=== PATIENT | female | born 1990 | race African-American/Black ===

== ENCOUNTER → 2016-08-10 | Outpatient (CLI) | payer OTHER | END | disposition home or self-care (01) | LOC: LABWHC1 10:42 | PROVIDERS: ATTEND Obstetrics & Gynecology | DX: N91.2 Amenorrhea, unspecified (principal) | CPT/HCPCS: 36415; 84702 ==

== ENCOUNTER 2016-12-22 06:06 | Emergency (ER) | payer OTHER ==
[2016-12-22] MEDS ORDERED: MAG HYDROX/AL HYDROX/SIMETH 30 ML, HYOSCYAMINE ELIXIR 10 ML, CIMETIDINE HCL 300 MG, LID... PO STA ×4 (06:27)
[2016-12-22] MEDS ORDERED: ONDANSETRON 4 MG/2 ML VIAL IVP STA (06:27)
[2016-12-22] MEDS ORDERED: FAMOTIDINE 20 MG/2 ML VIAL IV STA (06:27)
[2016-12-22] MEDS ORDERED: SODIUM CHLORIDE 0.9% 1,000 ML IV ONE (06:27)
[2016-12-22 06:45] LABS: Basophils % (A) 0 %; CH 23.3; Eosinophils # (A) 0.1 k/uL (0-0.7); Eosinophils % (A) 1 %; HDW 2.55; HGB 10.1 gm/dL (11.4-16.0); Hypochromasia Marked; Luc # (Auto) 0.18; Luc % (Auto) 1; Lymphocytes # (A) 3.6 k/uL (1.0-4.8); Lymphocytes % (A) 24 %; MCH 23.2 pg (25.0-35.0); MCHC 29.8 g/dL (31.0-37.0); Mean Platelet Volume 8.1; Monocytes # (A) 0.6 k/uL (0-1.0); Monocytes % (A) 4 %; Neutrophils # (A) 10.3 k/uL (1.3-7.7); Neutrophils % (A) 70 %; RBC 4.36 m/uL (3.80-5.40); RDW 15.2 % (11.5-15.5); WBC 14.8 k/uL (3.8-10.6); WBC (Perox) 14.71
--- NOTE | 2016-12-22 06:52 | ED ---
Abdominal Pain HPI - General Source: patient Mode of arrival: ambulatory Limitations: no limitations <Adrian Kuhn - Last Filed: 12/22/16 07:03> <Roel Chavez - Last Filed: 12/22/16 09:22> - General Chief Complaint: Abdominal Pain Stated Complaint: abd pain Time Seen by Provider: 12/22/16 06:15 - History of Present Illness Initial Comments: This is a 26-year-old female, past medical history presents emergency department for abdominal pain for the last 1-1/2 months. She states that it has been getting gradually worse. She describes it as a gnawing and aching sensation. It is worse with eating. She states she also has nausea and vomiting. She also has associated diarrhea. She states anytime she eats it "goes right through me ". She denies any fevers or chills. She has not seen anybody for this previously because she does not have insurance. No dysuria or hematuria. No vaginal bleeding or discharge. No other complaints. (Adrian Kuhn) - Related Data Previous Rx's Medication Instructions Recorded Famotidine [Pepcid] 20 mg PO BID #30 tablet 12/22/16 Metoclopramide HCl [Reglan] 10 mg PO Q6HR PRN #15 tablet 12/22/16 Allergies Allergy/AdvReac Type Severity Reaction Status Date / Time No Known Allergies Allergy Verified 12/22/16 07:25 Review of Systems ROS Other: All systems not noted in ROS Statement are negative. <Adrian Kuhn - Last Filed: 12/22/16 07:03> ROS Other: All systems not noted in ROS Statement are negative. <Roel Chavez - Last Filed: 12/22/16 09:22> ROS Statement: Those systems with pertinent positive or pertinent negative responses have been documented in the HPI. Past Medical History Additional Past Medical History / Comment(s): anemia History of Any Multi-Drug Resistant Organisms: None Reported Past Surgical History: No Surgical Hx Reported Additional Past Surgical History / Comment(s): colonoscopy Past Psychological History: No Psychological Hx Reported Smoking Status: Never smoker Past Alcohol Use History: Occasional Past Drug Use History: Marijuana <Adrian Kuhn - Last Filed: 12/22/16 07:03> General Exam Limitations: no limitations <Adrian Kuhn - Last Filed: 12/22/16 07:03> <Roel Chavez - Last Filed: 12/22/16 09:22> - General Exam Comments Initial Comments: Constitutional: Awake alert Appears comfortable Head: Normocephalic atraumatic Eyes: no conjunctival injection No scleral icterus EOMI Neck: No JVD Supple Heart: Regular rate rhythm normal S1-S2 no murmurs Lungs: Clear to auscultation bilaterally No wheezing No rales Abdomen: Soft nondistended mild epigastric tenderness to palpation Extremities: Non edematous DP pulses intact Radial pulses intact Neuro: A&Ox3 No focal neurologic deficits Psych: Appropriate mood and affect (Adrian Kuhn) Medical Decision Making - Lab Data Result diagrams: 12/22/16 06:35 12/22/16 06:35 <Adrian Kuhn - Last Filed: 12/22/16 07:03> - Lab Data Result diagrams: 12/22/16 06:35 12/22/16 06:35 - Radiology Data Radiology results: report reviewed (Ultrasound right upper quadrant shows normal exam.) <Roel Chavez - Last Filed: 12/22/16 09:22> - Medical Decision Making Pt's care transitioned to Dr. Chavez (Adrian Kuhn) Patient reevaluated by myself, Dr. Chavez. Patient resting comfortably in bed. Abdomen is soft and nontender. Pedal pulses intact. Patient states she feels better and does appear comfortable. Patient is updated on results and need for follow-up. (Roel Chavez) - Lab Data Lab Results 12/22/16 12/22/16 12/22/16 Range/Units 06:34 06:34 06:35 WBC 14.8 H (3.8-10.6) k/uL RBC 4.36 (3.80-5.40) m/uL Hgb 10.1 L (11.4-16.0) gm/dL Hct 34.0 (34.0-46.0) % MCV 78.0 L (80.0-100.0) fL MCH 23.2 L (25.0-35.0) pg MCHC 29.8 L (31.0-37.0) g/dL RDW 15.2 (11.5-15.5) % Plt Count 224 (150-450) k/uL Neutrophils % 70 % Lymphocytes % 24 % Monocytes % 4 % Eosinophils % 1 % Basophils % 0 % Neutrophils # 10.3 H (1.3-7.7) k/uL Lymphocytes # 3.6 (1.0-4.8) k/uL Monocytes # 0.6 (0-1.0) k/uL Eosinophils # 0.1 (0-0.7) k/uL Basophils # 0.0 (0-0.2) k/uL Hypochromasia Marked Sodium (137-145) mmol/L Potassium (3.5-5.1) mmol/L Chloride (98-107) mmol/L Carbon Dioxide (22-30) mmol/L Anion Gap mmol/L BUN (7-17) mg/dL Creatinine (0.52-1.04) mg/dL Est GFR (MDRD) Af Amer (>60 ml/min/1.73 sqM) Est GFR (MDRD) Non-Af (>60 ml/min/1.73 sqM) Glucose (74-99) mg/dL Calcium (8.4-10.2) mg/dL Total Bilirubin (0.2-1.3) mg/dL AST (14-36) U/L ALT (9-52) U/L Alkaline Phosphatase (38-126) U/L Total Protein (6.3-8.2) g/dL Albumin (3.5-5.0) g/dL Amylase (30-110) U/L Lipase (23-300) U/L Urine Color Yellow Urine Appearance Cloudy H (Clear) Urine pH 6.0 (5.0-8.0) Ur Specific [place] 1.021 (1.001-1.035) Urine Protein 1+ H (Negative) Urine Glucose (UA) Negative (Negative) Urine Ketones Negative (Negative) Urine Blood Negative (Negative) Urine Nitrite Negative (Negative) Urine Bilirubin Negative (Negative) Urine Urobilinogen <2.0 (<2.0) mg/dL Ur Leukocyte Esterase Negative (Negative) Urine RBC 2 (0-5) /hpf Urine WBC 1 (0-5) /hpf Ur Squamous Epith Cells 24 H (0-4) /hpf Urine Bacteria Rare H (None) /hpf Urine Mucus Many H (None) /hpf Urine HCG, Qual Not Detected (Not Detectd) 12/22/16 Range/Units 06:35 WBC (3.8-10.6) k/uL RBC (3.80-5.40) m/uL Hgb (11.4-16.0) gm/dL Hct (34.0-46.0) % MCV (80.0-100.0) fL MCH (25.0-35.0) pg MCHC (31.0-37.0) g/dL RDW (11.5-15.5) % Plt Count (150-450) k/uL Neutrophils % % Lymphocytes % % Monocytes % % Eosinophils % % Basophils % % Neutrophils # (1.3-7.7) k/uL Lymphocytes # (1.0-4.8) k/uL Monocytes # (0-1.0) k/uL Eosinophils # (0-0.7) k/uL Basophils # (0-0.2) k/uL Hypochromasia Sodium 142 (137-145) mmol/L Potassium 3.5 (3.5-5.1) mmol/L Chloride 105 (98-107) mmol/L Carbon Dioxide 24 (22-30) mmol/L Anion Gap 13 mmol/L BUN 8 (7-17) mg/dL Creatinine 0.63 (0.52-1.04) mg/dL Est GFR (MDRD) Af Amer >60 (>60 ml/min/1.73 sqM) Est GFR (MDRD) Non-Af >60 (>60 ml/min/1.73 sqM) Glucose 93 (74-99) mg/dL Calcium 9.1 (8.4-10.2) mg/dL Total Bilirubin 1.3 (0.2-1.3) mg/dL AST 20 (14-36) U/L ALT 21 (9-52) U/L Alkaline Phosphatase 74 (38-126) U/L Total Protein 7.5 (6.3-8.2) g/dL Albumin 4.3 (3.5-5.0) g/dL Amylase <30 L (30-110) U/L Lipase 35 (23-300) U/L Urine Color Urine Appearance (Clear) Urine pH (5.0-8.0) Ur Specific [place] (1.001-1.035) Urine Protein (Negative) Urine Glucose (UA) (Negative) Urine Ketones (Negative) Urine Blood (Negative) Urine Nitrite (Negative) Urine Bilirubin (Negative) Urine Urobilinogen (<2.0) mg/dL Ur Leukocyte Esterase (Negative) Urine RBC (0-5) /hpf Urine WBC (0-5) /hpf Ur Squamous Epith Cells (0-4) /hpf Urine Bacteria (None) /hpf Urine Mucus (None) /hpf Urine HCG, Qual (Not Detectd) Disposition <Adrian Kuhn - Last Filed: 12/22/16 07:03> Time of Disposition: 09:22 <Roel Chavez - Last Filed: 12/22/16 09:22> Clinical Impression: Epigastric pain, Vomiting Disposition: HOME SELF-CARE Condition: Stable Instructions: Abdominal Pain (ED), Acute Nausea and Vomiting (ED) Additional Instructions: Please follow-up with your doctor in the beginning of the week. Return for not tolerating fluids, increased pain, fevers, worsening symptoms or other concerns. Have your primary care physician consider EGD. Pepcid daily. Prescriptions: Famotidine [Pepcid] 20 mg PO BID #30 tablet Metoclopramide HCl [Reglan] 10 mg PO Q6HR PRN #15 tablet PRN Reason: Nausea Referrals: Vale Lawson MD [Primary Care Provider] - 1-2 days
[2016-12-22 06:54] LABS: Appearance,Urine Cloudy (Clear); Bacteria,Urine Rare /hpf; Bilirubin,Urine Negative (Negative); Glucose,Urine (UA) Negative (Negative); Ketones,Urine Negative (Negative); Leukocyte Esterase,Urine Negative (Negative); Mucus,Urine Many /hpf; Nitrite,Urine Negative (Negative); Particle Count 12275; Protein,Urine 1+ (Negative); RBC,Urine 2 /hpf (0-5); Specific Gravity,Urine 1.021 (1.001-1.035); Squamous Epithelial Cell,Urine 24 /hpf (0-4); UA Billing (MACRO vs. MICRO) MICRO; Urobilinogen,Urine <2.0 mg/dL (<2.0); WBC,Urine 1 /hpf (0-5)
[2016-12-22 06:57] LABS: ALT 21 U/L (9-52); AST 20 U/L (14-36); Alkaline Phosphatase 74 U/L (38-126); Amylase <30 U/L (30-110); Anion Gap 13 mmol/L; Blood Urea Nitrogen 8 mg/dL (7-17); Calcium 9.1 mg/dL (8.4-10.2); Carbon Dioxide 24 mmol/L (22-30); Chloride 105 mmol/L (98-107); Glucose 93 mg/dL (74-99); Non-African American GFR(MDRD) >60 (>60 ml/min/1.73 sqM); Potassium 3.5 mmol/L (3.5-5.1); Sodium 142 mmol/L (137-145); Total Bilirubin 1.3 mg/dL (0.2-1.3); Total Protein 7.5 g/dL (6.3-8.2)
[2016-12-22 07:49] VITALS: RESP 16
--- NOTE | 2016-12-22 09:12 | US ---
EXAMINATION TYPE: US abdomen limited DATE OF EXAM: 12/22/2016 COMPARISON: NONE CLINICAL HISTORY: RUQ pain. EC patient with intermittent RUQ pain, RLQ pain, nausea and vomiting EXAM MEASUREMENTS: Liver Length: 15.5 cm Gallbladder Wall: 0.1 cm CBD: 0.2 cm Right Kidney: 11.8 x 5.8 x 4.1 cm Pancreas: Head and body the pancreas are normal. Tail of pancreas is obscured by bowel gas. Liver: wnl Gallbladder: wnl Evidence for sonographic Flores's sign: No CBD: wnl Right Kidney: wnl IMPRESSION: 1. Normal right upper quadrant ultrasound.
[2016-12-22 09:33] VITALS: BP 149/86; PULSE 82; TEMP 99.4
== END 2016-12-22 09:33 | disposition home or self-care (01) ==
LOC: EC 06:06
DX: R10.13 Epigastric pain (principal); R11.2 Nausea with vomiting, unspecified; R19.7 Diarrhea, unspecified
CPT/HCPCS: 36415; 80053; 82150; 83690; 85025; 81001; 81025; 76705; 99284; 96374; 96375; 96361; J2405

== ENCOUNTER 2017-01-05 07:01 | Emergency (ER) | payer OTHER ==
[2017-01-05] MEDS ORDERED: SODIUM CHLORIDE 0.9% 500 ML IV STA (08:07)
[2017-01-05 08:18] LABS: Basophils % (A) 0 %; CH 22.8; CHCM 29.5; Eosinophils # (A) 0.1 k/uL (0-0.7); Eosinophils % (A) 1 %; HCT 32.4 % (34.0-46.0); HDW 2.52; HGB 10.3 gm/dL (11.4-16.0); Hypochromasia Marked; Luc # (Auto) 0.26; Luc % (Auto) 2; Lymphocytes # (A) 3.2 k/uL (1.0-4.8); Lymphocytes % (A) 26 %; MCH 24.6 pg (25.0-35.0); MCHC 31.8 g/dL (31.0-37.0); MCV 77.4 fL (80.0-100.0); Mean Platelet Volume 7.2; Monocytes # (A) 0.5 k/uL (0-1.0); Monocytes % (A) 4 %; Neutrophils % (A) 66 %; RBC 4.19 m/uL (3.80-5.40); RDW 14.8 % (11.5-15.5); WBC 12.1 k/uL (3.8-10.6); WBC (Perox) 12.32
[2017-01-05 08:26] LABS: Appearance,Urine Cloudy (Clear); Bilirubin,Urine Negative (Negative); Glucose,Urine (UA) Negative (Negative); Ketones,Urine Negative (Negative); Leukocyte Esterase,Urine Negative (Negative); Mucus,Urine Rare /hpf; Nitrite,Urine Negative (Negative); PH, Urine 6.5 (5.0-8.0); Particle Count 3266; Protein,Urine Negative (Negative); Specific Gravity,Urine 1.019 (1.001-1.035); Squamous Epithelial Cell,Urine 11 /hpf (0-4); UA Billing (MACRO vs. MICRO) MICRO; Urobilinogen,Urine <2.0 mg/dL (<2.0); WBC,Urine 1 /hpf (0-5)
[2017-01-05 08:29] LABS: ALT 26 U/L (9-52); AST 22 U/L (14-36); Alkaline Phosphatase 80 U/L (38-126); Amylase <30 U/L (30-110); Anion Gap 12 mmol/L; Blood Urea Nitrogen 10 mg/dL (7-17); Calcium 9.3 mg/dL (8.4-10.2); Carbon Dioxide 24 mmol/L (22-30); Chloride 107 mmol/L (98-107); Glucose 96 mg/dL (74-99); Non-African American GFR(MDRD) >60 (>60 ml/min/1.73 sqM); Potassium 3.9 mmol/L (3.5-5.1); Sodium 143 mmol/L (137-145); Total Bilirubin 0.5 mg/dL (0.2-1.3); Total Protein 7.3 g/dL (6.3-8.2)
--- NOTE | 2017-01-05 08:33 | ED ---
General Adult HPI - General Chief complaint: Abdominal Pain Stated complaint: abd pain Time Seen by Provider: 01/05/17 07:10 Source: patient, RN notes reviewed Mode of arrival: ambulatory Limitations: no limitations - History of Present Illness Initial comments: This is a 26-year-old female who presents emergency department stating that she has had abdominal pain for 2-3 months. Patient states that she has episodes of vomiting and episodes of diarrhea as well. Patient states she did vomit this morning and she had not eaten yet today. Patient denies any fever chills. Patient denies any previous abdominal surgeries. Patient denies any dysuria hematuria urinary frequency. Patient states she could be . Patient denies any chest pain difficult breathing or shortness of breath. Patient denies any back pain. Patient's states she's been to her primary medical care doctor but has not followed up as he has directed. - Related Data Home Medications Medication Instructions Recorded Confirmed No Known Home Medications [No 01/05/17 01/05/17 Known Home Medications] Allergies Allergy/AdvReac Type Severity Reaction Status Date / Time No Known Allergies Allergy Verified 01/05/17 07:44 Review of Systems ROS Statement: Those systems with pertinent positive or pertinent negative responses have been documented in the HPI. ROS Other: All systems not noted in ROS Statement are negative. Past Medical History Past Medical History: Hypertension Additional Past Medical History / Comment(s): anemia History of Any Multi-Drug Resistant Organisms: None Reported Past Surgical History: No Surgical Hx Reported Additional Past Surgical History / Comment(s): colonoscopy Past Psychological History: No Psychological Hx Reported Smoking Status: Never smoker Past Alcohol Use History: Occasional Past Drug Use History: Marijuana General Exam - General Exam Comments Initial Comments: GENERAL: Patient is well-developed and well-nourished. Patient is nontoxic and well- hydrated and is in no acute distress. ENT: Neck is soft and supple. No significant lymphadenopathy is noted. Oropharynx is clear. Moist mucous membranes. Neck has full range of motion without eliciting any pain. EYES: The sclera were anicteric and conjunctiva were pink and moist. Extraocular movements were intact and pupils were equal round and reactive to light. Eyelids were unremarkable. PULMONARY: Unlabored respirations. Good breath sounds bilaterally. No audible rales rhonchi or wheezing was noted. CARDIOVASCULAR: There is a regular rate and rhythm without any murmurs gallops or rubs. ABDOMEN: Soft and nontender with normal bowel sounds. No palpable organomegaly was noted. There is no palpable pulsatile mass. SKIN: Skin is clear with no lesions or rashes and otherwise unremarkable. NEUROLOGIC: Patient is alert and oriented x3. Cranial nerves II through XII are grossly intact. Motor and sensory are also intact. Normal speech, volume and content. Symmetrical smile. MUSCULOSKELETAL: Normal extremities with adequate strength and full range of motion. No lower extremity swelling or edema. No calf tenderness. LYMPHATICS: No significant lymphadenopathy is noted PSYCHIATRIC: Normal psychiatric evaluation. Limitations: no limitations Course Vital Signs 01/05/17 07:10 Temperature 99.0 F Pulse Rate 70 Respiratory 20 Rate Blood Pressure 157/89 O2 Sat by Pulse 100 Oximetry Medical Decision Making - Medical Decision Making I went into the room to reevaluate the patient she was sleeping. I woke her up and examined her abdomen was nontender. Patient has slightly elevated white cell count and an slightly anemic. Patient states she supposed be following up with hematology already. - Lab Data Result diagrams: 01/05/17 07:25 01/05/17 07:25 Lab Results 01/05/17 01/05/17 01/05/17 Range/Units 07:20 07:20 07:25 WBC (3.8-10.6) k/uL RBC (3.80-5.40) m/uL Hgb (11.4-16.0) gm/dL Hct (34.0-46.0) % MCV (80.0-100.0) fL MCH (25.0-35.0) pg MCHC (31.0-37.0) g/dL RDW (11.5-15.5) % Plt Count (150-450) k/uL Neutrophils % % Lymphocytes % % Monocytes % % Eosinophils % % Basophils % % Neutrophils # (1.3-7.7) k/uL Lymphocytes # (1.0-4.8) k/uL Monocytes # (0-1.0) k/uL Eosinophils # (0-0.7) k/uL Basophils # (0-0.2) k/uL Hypochromasia Sodium 143 (137-145) mmol/L Potassium 3.9 (3.5-5.1) mmol/L Chloride 107 (98-107) mmol/L Carbon Dioxide 24 (22-30) mmol/L Anion Gap 12 mmol/L BUN 10 (7-17) mg/dL Creatinine 0.62 (0.52-1.04) mg/dL Est GFR (MDRD) Af Amer >60 (>60 ml/min/1.73 sqM) Est GFR (MDRD) Non-Af >60 (>60 ml/min/1.73 sqM) Glucose 96 (74-99) mg/dL Calcium 9.3 (8.4-10.2) mg/dL Total Bilirubin 0.5 (0.2-1.3) mg/dL AST 22 (14-36) U/L ALT 26 (9-52) U/L Alkaline Phosphatase 80 (38-126) U/L Total Protein 7.3 (6.3-8.2) g/dL Albumin 4.2 (3.5-5.0) g/dL Amylase <30 L (30-110) U/L Lipase 59 (23-300) U/L Urine Color Yellow Urine Appearance Cloudy H (Clear) Urine pH 6.5 (5.0-8.0) Ur Specific [place] 1.019 (1.001-1.035) Urine Protein Negative (Negative) Urine Glucose (UA) Negative (Negative) Urine Ketones Negative (Negative) Urine Blood Negative (Negative) Urine Nitrite Negative (Negative) Urine Bilirubin Negative (Negative) Urine Urobilinogen <2.0 (<2.0) mg/dL Ur Leukocyte Esterase Negative (Negative) Urine WBC 1 (0-5) /hpf Ur Squamous Epith Cells 11 H (0-4) /hpf Urine Mucus Rare H (None) /hpf Urine HCG, Qual Not Detected (Not Detectd) 01/05/17 Range/Units 07:25 WBC 12.1 H (3.8-10.6) k/uL RBC 4.19 (3.80-5.40) m/uL Hgb 10.3 L (11.4-16.0) gm/dL Hct 32.4 L (34.0-46.0) % MCV 77.4 L (80.0-100.0) fL MCH 24.6 L (25.0-35.0) pg MCHC 31.8 (31.0-37.0) g/dL RDW 14.8 (11.5-15.5) % Plt Count 276 (150-450) k/uL Neutrophils % 66 % Lymphocytes % 26 % Monocytes % 4 % Eosinophils % 1 % Basophils % 0 % Neutrophils # 8.0 H (1.3-7.7) k/uL Lymphocytes # 3.2 (1.0-4.8) k/uL Monocytes # 0.5 (0-1.0) k/uL Eosinophils # 0.1 (0-0.7) k/uL Basophils # 0.0 (0-0.2) k/uL Hypochromasia Marked Sodium (137-145) mmol/L Potassium (3.5-5.1) mmol/L Chloride (98-107) mmol/L Carbon Dioxide (22-30) mmol/L Anion Gap mmol/L BUN (7-17) mg/dL Creatinine (0.52-1.04) mg/dL Est GFR (MDRD) Af Amer (>60 ml/min/1.73 sqM) Est GFR (MDRD) Non-Af (>60 ml/min/1.73 sqM) Glucose (74-99) mg/dL Calcium (8.4-10.2) mg/dL Total Bilirubin (0.2-1.3) mg/dL AST (14-36) U/L ALT (9-52) U/L Alkaline Phosphatase (38-126) U/L Total Protein (6.3-8.2) g/dL Albumin (3.5-5.0) g/dL Amylase (30-110) U/L Lipase (23-300) U/L Urine Color Urine Appearance (Clear) Urine pH (5.0-8.0) Ur Specific [place] (1.001-1.035) Urine Protein (Negative) Urine Glucose (UA) (Negative) Urine Ketones (Negative) Urine Blood (Negative) Urine Nitrite (Negative) Urine Bilirubin (Negative) Urine Urobilinogen (<2.0) mg/dL Ur Leukocyte Esterase (Negative) Urine WBC (0-5) /hpf Ur Squamous Epith Cells (0-4) /hpf Urine Mucus (None) /hpf Urine HCG, Qual (Not Detectd) Disposition Clinical Impression: Abdominal pain Disposition: HOME SELF-CARE Instructions: Abdominal Pain (ED) Referrals: Vale Lawson MD [Primary Care Provider] - 1-2 days Time of Disposition: 09:28
--- NOTE | 2017-01-05 08:46 | XR ---
EXAMINATION TYPE: XR KUB DATE OF EXAM: 01/05/2017 COMPARISON: NONE HISTORY: Pain TECHNIQUE: Single supine KUB image of the abdomen is obtained FINDINGS: Small bowel demonstrates no evidence for dilatation or air fluid levels. Gas and fecal material is seen in non-distended colon. No convincing evidence for pneumoperitoneum. No unusual calcifications. The lung bases are clear. The osseous structures are intact. IMPRESSION: 1. Overall nonobstructive bowel gas pattern.
[2017-01-05 10:03] VITALS: BP 125/83; PULSE 91; RESP 18; TEMP 97.9
== END 2017-01-05 10:03 | disposition home or self-care (01) ==
LOC: EC 07:01
DX: R10.9 Unspecified abdominal pain (principal); R11.10 Vomiting, unspecified; R19.7 Diarrhea, unspecified
CPT/HCPCS: 36415; 74000; 80053; 81001; 81025; 82150; 83690; 85025; 96360; 99284

== ENCOUNTER 2017-02-21 12:44 | Emergency (ER) | payer OTHER ==
[2017-02-21 12:49] VITALS: RESP 18
[2017-02-21] MEDS ORDERED: AMOXICILLIN 500 MG CAP PO STA (13:36)
[2017-02-21] MEDS ORDERED: DEXAMETHASONE SOD PHOSPHATE 10 MG/ML 1 ML VIAL IM STA (13:36)
[2017-02-21] MEDS ORDERED: Acetaminophen-Codeine 300-30mg TAB PO STA (13:36)
[2017-02-21] MEDS ORDERED: ACETAMINOPHEN TAB 325 MG TAB PO STA (13:36)
[2017-02-21] MEDS ORDERED: IBUPROFEN 800 MG TAB PO STA (13:36)
--- NOTE | 2017-02-21 13:38 | ED ---
General Adult HPI - General Chief complaint: Abdominal Pain Stated complaint: strep throat/body pains Time Seen by Provider: 02/21/17 13:23 Source: patient, RN notes reviewed, old records reviewed Mode of arrival: ambulatory Limitations: no limitations - History of Present Illness Initial comments: This is a 26-year-old female the ER for evaluation of sore throat. Patient is very for sore throat. Fevers. Generalized aches and pains. Patient has no medical history. Denies . Patient states she has some difficulty swallowing. No cough. - Related Data Previous Rx's Medication Instructions Recorded Diphenox-Atrop 2.5-0.025 mg 1 tab PO QID PRN #20 tablet 03/05/17 [Lomotil] Ondansetron [Zofran] 4 mg PO Q8HR PRN #30 tab 03/05/17 Allergies Allergy/AdvReac Type Severity Reaction Status Date / Time No Known Allergies Allergy Verified 03/05/17 07:35 Review of Systems ROS Statement: Those systems with pertinent positive or pertinent negative responses have been documented in the HPI. ROS Other: All systems not noted in ROS Statement are negative. Past Medical History Past Medical History: Hypertension Additional Past Medical History / Comment(s): anemia History of Any Multi-Drug Resistant Organisms: None Reported Past Surgical History: No Surgical Hx Reported Additional Past Surgical History / Comment(s): colonoscopy Past Psychological History: No Psychological Hx Reported Smoking Status: Never smoker Past Alcohol Use History: Occasional Past Drug Use History: Marijuana General Exam Limitations: no limitations General appearance: alert, in no apparent distress Head exam: Present: atraumatic, normocephalic, normal inspection Eye exam: Present: normal appearance, PERRL, EOMI. Absent: scleral icterus, conjunctival injection, periorbital swelling ENT exam: Present: normal exam, mucous membranes moist Neck exam: Present: normal inspection. Absent: tenderness, meningismus, lymphadenopathy Respiratory exam: Present: normal lung sounds bilaterally. Absent: respiratory distress, wheezes, rales, rhonchi, stridor Cardiovascular Exam: Present: regular rate, normal rhythm, normal heart sounds. Absent: systolic murmur, diastolic murmur, rubs, gallop, clicks GI/Abdominal exam: Present: soft, normal bowel sounds. Absent: distended, tenderness, guarding, rebound, rigid Extremities exam: Present: normal inspection, full ROM, normal capillary refill. Absent: tenderness, pedal edema, joint swelling, calf tenderness Back exam: Present: normal inspection Neurological exam: Present: alert, oriented X3, CN II-XII intact Psychiatric exam: Present: normal affect, normal mood Skin exam: Present: warm, dry, intact, normal color. Absent: rash Course Vital Signs 02/21/17 02/21/17 12:46 14:17 Temperature 100.3 F H 99.6 F Pulse Rate 105 H 70 Respiratory 18 18 Rate Blood Pressure 167/95 130/85 O2 Sat by Pulse 100 100 Oximetry Medical Decision Making - Medical Decision Making 26 female to ER with exam positive for strep throat, will treat with antibiotics and discharged home Disposition Clinical Impression: Strep pharyngitis Disposition: HOME SELF-CARE Condition: Good Instructions: Strep Throat (ED) Referrals: Vale Lawson MD [Primary Care Provider] - 1-2 days
[2017-02-21 14:18] VITALS: BP 130/85; PULSE 70; TEMP 99.6
--- NOTE | 2017-02-23 07:44 | CDI ---
Documentation Clarification OP Dear Eh EVANS, DO: Please do addendum to ED report for HPI and physical exam. Thank you, Lauryn Andersen Hand Driller If you have any question, Please contact coding compliance auditor at [phone] [facility]
== END 2017-02-21 14:18 | disposition home or self-care (01) ==
LOC: EC 12:44
DX: J02.0 Streptococcal pharyngitis (principal); M79.1 Myalgia; R50.9 Fever, unspecified
CPT/HCPCS: 99284; 96372; J1100

== ENCOUNTER 2017-03-05 06:51 | Emergency (ER) | payer OTHER ==
[2017-03-05] MEDS ORDERED: SODIUM CHLORIDE 0.9% 1,000 ML IV ONE (08:07)
[2017-03-05] MEDS ORDERED: ONDANSETRON 4 MG/2 ML VIAL IVP STA (08:08)
[2017-03-05] MEDS ORDERED: ACETAMINOPHEN IV (For NPO) 1,000 MG in EMPTY BAG 1 BAG IVPB STA (08:08)
[2017-03-05] MEDS ORDERED: diphenhydrAMINE 50 MG/ML 1 ML VIAL IVP STA (08:08)
--- NOTE | 2017-03-05 08:32 | ED ---
General Adult HPI - General Chief complaint: Nausea/Vomiting/Diarrhea Stated complaint: back pain/diarrhea/abdominal pain Time Seen by Provider: 03/05/17 07:31 Source: patient, RN notes reviewed, old records reviewed Mode of arrival: ambulatory Limitations: no limitations - History of Present Illness Initial comments: This is a 26-year-old female the ER for evaluation of multiple complaints. Patient states she recent diagnosis of strep throat which seems resolved, Samreen final she is . Patient states she is having diarrhea with abdominal cramping and not feeling well for about 2-3 days. Patient has a decreased appetite no fevers. No other complaints no dysuria. This is patient' s first - Related Data Home Medications Medication Instructions Recorded Confirmed No Known Home Medications [No 03/05/17 03/05/17 Known Home Medications] Allergies Allergy/AdvReac Type Severity Reaction Status Date / Time No Known Allergies Allergy Verified 03/05/17 07:35 Review of Systems ROS Statement: Those systems with pertinent positive or pertinent negative responses have been documented in the HPI. ROS Other: All systems not noted in ROS Statement are negative. Past Medical History Past Medical History: Hypertension Additional Past Medical History / Comment(s): anemia History of Any Multi-Drug Resistant Organisms: None Reported Past Surgical History: No Surgical Hx Reported Additional Past Surgical History / Comment(s): colonoscopy Past Psychological History: No Psychological Hx Reported Smoking Status: Never smoker Past Alcohol Use History: None Reported Past Drug Use History: None Reported General Exam Limitations: no limitations General appearance: alert, in no apparent distress Head exam: Present: atraumatic, normocephalic, normal inspection Eye exam: Present: normal appearance, PERRL, EOMI. Absent: scleral icterus, conjunctival injection, periorbital swelling ENT exam: Present: normal exam, mucous membranes moist Neck exam: Present: normal inspection. Absent: tenderness, meningismus, lymphadenopathy Respiratory exam: Present: normal lung sounds bilaterally. Absent: respiratory distress, wheezes, rales, rhonchi, stridor Cardiovascular Exam: Present: regular rate, normal rhythm, normal heart sounds. Absent: systolic murmur, diastolic murmur, rubs, gallop, clicks GI/Abdominal exam: Present: soft, normal bowel sounds. Absent: distended, tenderness, guarding, rebound, rigid Extremities exam: Present: normal inspection, full ROM, normal capillary refill. Absent: tenderness, pedal edema, joint swelling, calf tenderness Back exam: Present: normal inspection Neurological exam: Present: alert, oriented X3, CN II-XII intact Psychiatric exam: Present: normal affect, normal mood Skin exam: Present: warm, dry, intact, normal color. Absent: rash Course Vital Signs 03/05/17 07:03 Temperature 98.1 F Pulse Rate 74 Respiratory 18 Rate Blood Pressure 141/96 O2 Sat by Pulse 100 Oximetry - Reevaluation(s) Reevaluation #1: 03/05/17 08:31 Patient's symptoms are much improved at this time Medical Decision Making - Medical Decision Making 26 female ER for evaluation of multiple complaints, test is negative. Patient will be discharged home - Lab Data Result diagrams: 03/05/17 08:45 Lab Results 03/05/17 03/05/17 03/05/17 Range/Units 08:15 08:15 08:45 WBC 12.4 H (3.8-10.6) k/uL RBC 4.42 (3.80-5.40) m/uL Hgb 10.2 L (11.4-16.0) gm/dL Hct 34.5 (34.0-46.0) % MCV 78.2 L (80.0-100.0) fL MCH 23.1 L (25.0-35.0) pg MCHC 29.5 L (31.0-37.0) g/dL RDW 15.6 H (11.5-15.5) % Plt Count 215 (150-450) k/uL Neutrophils % 78 % Lymphocytes % 17 % Monocytes % 3 % Eosinophils % 1 % Basophils % 0 % Neutrophils # 9.7 H (1.3-7.7) k/uL Lymphocytes # 2.1 (1.0-4.8) k/uL Monocytes # 0.4 (0-1.0) k/uL Eosinophils # 0.1 (0-0.7) k/uL Basophils # 0.0 (0-0.2) k/uL Hypochromasia Moderate Urine Color Yellow Urine Appearance Clear (Clear) Urine pH 6.0 (5.0-8.0) Ur Specific [place] 1.015 (1.001-1.035) Urine Protein Negative (Negative) Urine Glucose (UA) Negative (Negative) Urine Ketones Negative (Negative) Urine Blood Negative (Negative) Urine Nitrite Negative (Negative) Urine Bilirubin Negative (Negative) Urine Urobilinogen <2.0 (<2.0) mg/dL Ur Leukocyte Esterase Negative (Negative) Urine HCG, Qual Not Detected (Not Detectd) - Radiology Data Radiology results: report reviewed (Ultrasound OB shows positive IUP), image reviewed Disposition Clinical Impression: Gastroenteritis Disposition: HOME SELF-CARE Instructions: Acute Diarrhea (ED) Referrals: Vale Lawson MD [Primary Care Provider] - 1-2 days
[2017-03-05 08:45] LABS: Appearance,Urine Clear (Clear); Bilirubin,Urine Negative (Negative); Glucose,Urine (UA) Negative (Negative); Ketones,Urine Negative (Negative); Leukocyte Esterase,Urine Negative (Negative); Nitrite,Urine Negative (Negative); Protein,Urine Negative (Negative); Specific Gravity,Urine 1.015 (1.001-1.035); UA Billing (MACRO vs. MICRO) CHEM; Urobilinogen,Urine <2.0 mg/dL (<2.0)
[2017-03-05 08:57] LABS: Basophils % (A) 0 %; CH 23.7; CHCM 30.5; Eosinophils # (A) 0.1 k/uL (0-0.7); Eosinophils % (A) 1 %; HCT 34.5 % (34.0-46.0); HDW 2.62; HGB 10.2 gm/dL (11.4-16.0); Hypochromasia Moderate; Luc # (Auto) 0.16; Luc % (Auto) 1; Lymphocytes # (A) 2.1 k/uL (1.0-4.8); Lymphocytes % (A) 17 %; MCH 23.1 pg (25.0-35.0); MCHC 29.5 g/dL (31.0-37.0); MCV 78.2 fL (80.0-100.0); Mean Platelet Volume 7.2; Monocytes # (A) 0.4 k/uL (0-1.0); Monocytes % (A) 3 %; Neutrophils # (A) 9.7 k/uL (1.3-7.7); Neutrophils % (A) 78 %; RBC 4.42 m/uL (3.80-5.40); RDW 15.6 % (11.5-15.5); WBC 12.4 k/uL (3.8-10.6); WBC (Perox) 12.53
[2017-03-05 09:14] LABS: ALT 33 U/L (9-52); AST 22 U/L (14-36); Alkaline Phosphatase 72 U/L (38-126); Anion Gap 10 mmol/L; Blood Urea Nitrogen 6 mg/dL (7-17); Calcium 8.9 mg/dL (8.4-10.2); Carbon Dioxide 20 mmol/L (22-30); Chloride 108 mmol/L (98-107); Glucose 99 mg/dL (74-99); Non-African American GFR(MDRD) >60 (>60 ml/min/1.73 sqM); Potassium 4.1 mmol/L (3.5-5.1); Sodium 138 mmol/L (137-145); Total Bilirubin 0.3 mg/dL (0.2-1.3); Total Protein 6.8 g/dL (6.3-8.2)
--- NOTE | 2017-03-05 11:35 | US ---
EXAMINATION TYPE: US OB <= 14 wk fetus DATE OF EXAM: 03/05/2017 COMPARISON: NONE CLINICAL HISTORY: Pain. EXAM PERFORMED: Transabdominal (TA) EXAM MEASUREMENTS: GESTATIONAL AGE / DATING Physician Established: not yet established Dates by LMP: (6 weeks/0 days) EDC: 10/29/17 Dates by First Scan: 1st scan today (Dates by Current Scan for: 6 weeks/0 days) EDC: 10/29/17 MATERNAL ANATOMY Uterus: 9.9 x 3.7 x 5.2cm Right Ovary: 2.4 x 1.9 x 2.0cm Left Ovary: 3.0 x 2.2 x 2.3 Post CDS / Adnexa: wnl GESTATION / SURVEY CRL: 0.4 ( 6 weeks/0 days) Yolk Sac (normal less than 6mm): 2mm Heart Rate: 168 bpm Rhythm: Arrhythmia IUP: Viable IUP Date of LMP: 01/22/17 Beta HcG (if available): not available Estimated date of delivery of 10/29/2017. IMPRESSION: Single live intrauterine with a sonographic age of 6 weeks and 0 days, heart rate of 168, a nd estimated date of delivery of 10/29/2017. Dates are concordant with the menstrual age.
--- NOTE | 2017-03-05 12:11 | ED ---
Medical Decision Making - Medical Decision Making 26 female in the ER for evaluation, patient coming in for evaluation of diarrhea , continue with gastritis, colitis, patient also has positive , no intervention or medication at this time, left foot are normal patient feels better - Lab Data Result diagrams: 03/05/17 08:45 03/05/17 08:45 Lab Results 03/05/17 03/05/17 03/05/17 Range/Units 08:15 08:15 08:45 WBC (3.8-10.6) k/uL RBC (3.80-5.40) m/uL Hgb (11.4-16.0) gm/dL Hct (34.0-46.0) % MCV (80.0-100.0) fL MCH (25.0-35.0) pg MCHC (31.0-37.0) g/dL RDW (11.5-15.5) % Plt Count (150-450) k/uL Neutrophils % % Lymphocytes % % Monocytes % % Eosinophils % % Basophils % % Neutrophils # (1.3-7.7) k/uL Lymphocytes # (1.0-4.8) k/uL Monocytes # (0-1.0) k/uL Eosinophils # (0-0.7) k/uL Basophils # (0-0.2) k/uL Hypochromasia Sodium (137-145) mmol/L Potassium (3.5-5.1) mmol/L Chloride (98-107) mmol/L Carbon Dioxide (22-30) mmol/L Anion Gap mmol/L BUN (7-17) mg/dL Creatinine (0.52-1.04) mg/dL Est GFR (MDRD) Af Amer (>60 ml/min/1.73 sqM) Est GFR (MDRD) Non-Af (>60 ml/min/1.73 sqM) Glucose (74-99) mg/dL Calcium (8.4-10.2) mg/dL Total Bilirubin (0.2-1.3) mg/dL AST (14-36) U/L ALT (9-52) U/L Alkaline Phosphatase (38-126) U/L Total Protein (6.3-8.2) g/dL Albumin (3.5-5.0) g/dL Urine Color Yellow Urine Appearance Clear (Clear) Urine pH 6.0 (5.0-8.0) Ur Specific [place] 1.015 (1.001-1.035) Urine Protein Negative (Negative) Urine Glucose (UA) Negative (Negative) Urine Ketones Negative (Negative) Urine Blood Negative (Negative) Urine Nitrite Negative (Negative) Urine Bilirubin Negative (Negative) Urine Urobilinogen <2.0 (<2.0) mg/dL Ur Leukocyte Esterase Negative (Negative) Urine HCG, Qual Detected (Not Detectd) Blood Type O Positive Blood Type Recheck No 03/05/17 03/05/17 Range/Units 08:45 08:45 WBC 12.4 H (3.8-10.6) k/uL RBC 4.42 (3.80-5.40) m/uL Hgb 10.2 L (11.4-16.0) gm/dL Hct 34.5 (34.0-46.0) % MCV 78.2 L (80.0-100.0) fL MCH 23.1 L (25.0-35.0) pg MCHC 29.5 L (31.0-37.0) g/dL RDW 15.6 H (11.5-15.5) % Plt Count 215 (150-450) k/uL Neutrophils % 78 % Lymphocytes % 17 % Monocytes % 3 % Eosinophils % 1 % Basophils % 0 % Neutrophils # 9.7 H (1.3-7.7) k/uL Lymphocytes # 2.1 (1.0-4.8) k/uL Monocytes # 0.4 (0-1.0) k/uL Eosinophils # 0.1 (0-0.7) k/uL Basophils # 0.0 (0-0.2) k/uL Hypochromasia Moderate Sodium 138 (137-145) mmol/L Potassium 4.1 (3.5-5.1) mmol/L Chloride 108 H (98-107) mmol/L Carbon Dioxide 20 L (22-30) mmol/L Anion Gap 10 mmol/L BUN 6 L (7-17) mg/dL Creatinine 0.57 (0.52-1.04) mg/dL Est GFR (MDRD) Af Amer >60 (>60 ml/min/1.73 sqM) Est GFR (MDRD) Non-Af >60 (>60 ml/min/1.73 sqM) Glucose 99 (74-99) mg/dL Calcium 8.9 (8.4-10.2) mg/dL Total Bilirubin 0.3 (0.2-1.3) mg/dL AST 22 (14-36) U/L ALT 33 (9-52) U/L Alkaline Phosphatase 72 (38-126) U/L Total Protein 6.8 (6.3-8.2) g/dL Albumin 3.8 (3.5-5.0) g/dL Urine Color Urine Appearance (Clear) Urine pH (5.0-8.0) Ur Specific [place] (1.001-1.035) Urine Protein (Negative) Urine Glucose (UA) (Negative) Urine Ketones (Negative) Urine Blood (Negative) Urine Nitrite (Negative) Urine Bilirubin (Negative) Urine Urobilinogen (<2.0) mg/dL Ur Leukocyte Esterase (Negative) Urine HCG, Qual (Not Detectd) Blood Type Blood Type Recheck - Radiology Data Radiology results: report reviewed (Ultrasound is positive for IUP), image reviewed Disposition Clinical Impression: Gastroenteritis, at early stage Disposition: HOME SELF-CARE Condition: Good Instructions: Acute Diarrhea (ED), (ED) Prescriptions: Diphenox-Atrop 2.5-0.025 mg [Lomotil] 1 tab PO QID PRN #20 tablet PRN Reason: Diarrhea Ondansetron [Zofran] 4 mg PO Q8HR PRN #30 tab PRN Reason: Nausea Referrals: Vale Lawson MD [Primary Care Provider] - 1-2 days
[2017-03-05 12:39] VITALS: BP 139/65; PULSE 68; RESP 20; TEMP 98
== END 2017-03-05 12:39 | disposition home or self-care (01) ==
LOC: EC 06:51
DX: O99.611 Diseases of the digestive system complicating pregnancy, first trimester (principal); K52.9 Noninfective gastroenteritis and colitis, unspecified; Z3A.01 Less than 8 weeks gestation of pregnancy
CPT/HCPCS: 36415; 86900; 86901; 80053; 87591; 87491; 85025; 81003; 81025; 84702; 87086; 76801; 99284; 96365; 96366; 96375 ×2; J1200; J2405; J0131

== ENCOUNTER 2017-03-16 19:37 | Emergency (ER) | payer OTHER ==
[2017-03-16 20:58] LABS: Anisocytosis Slight; Basophils # (A) 0.1 k/uL (0-0.2); Basophils % (A) 0 %; CH 24.2; CHCM 31.5; Eosinophils # (A) 0.3 k/uL (0-0.7); Eosinophils % (A) 2 %; HCT 32.9 % (34.0-46.0); HDW 2.59; HGB 10.1 gm/dL (11.4-16.0); Hypochromasia Slight; Luc # (Auto) 0.22; Luc % (Auto) 1; Lymphocytes # (A) 3.1 k/uL (1.0-4.8); Lymphocytes % (A) 18 %; MCH 23.6 pg (25.0-35.0); MCHC 30.7 g/dL (31.0-37.0); Mean Platelet Volume 8.3; Microcytosis Slight; Monocytes # (A) 0.6 k/uL (0-1.0); Monocytes % (A) 3 %; Neutrophils # (A) 12.8 k/uL (1.3-7.7); Neutrophils % (A) 75 %; RBC 4.27 m/uL (3.80-5.40); RDW 16.2 % (11.5-15.5); WBC (Perox) 16.63
[2017-03-16 21:23] LABS: Anion Gap 12 mmol/L; Blood Urea Nitrogen 12 mg/dL (7-17); Calcium 9.4 mg/dL (8.4-10.2); Carbon Dioxide 18 mmol/L (22-30); Chloride 106 mmol/L (98-107); Glucose 74 mg/dL (74-99); Non-African American GFR(MDRD) >60 (>60 ml/min/1.73 sqM); Sodium 136 mmol/L (137-145)
--- NOTE | 2017-03-16 21:24 | ED ---
General Adult HPI - General Chief complaint: Chest Pain Stated complaint: Chest Pain Time Seen by Provider: 03/16/17 19:50 Source: patient Mode of arrival: wheelchair Limitations: no limitations - History of Present Illness Initial comments: Patient is a 26-year-old female who presents with a chief complaint of intermittent chest pain since 10:00 this morning. The patient states that it feels like a sharp twinge that comes very briefly and then dissipates. She cannot identify any aggravating or alleviating factors. She does not identify any inciting incident. Patient states that she is 8 weeks . This is her first . At this time, she denies any shortness of breath, exertional dyspnea, leg swelling, abdominal pain, nausea, or vomiting. - Related Data Home Medications Medication Instructions Recorded Confirmed No Known Home Medications [No 03/16/17 03/16/17 Known Home Medications] Allergies Allergy/AdvReac Type Severity Reaction Status Date / Time No Known Allergies Allergy Verified 03/16/17 21:10 Review of Systems ROS Statement: Those systems with pertinent positive or pertinent negative responses have been documented in the HPI. ROS Other: All systems not noted in ROS Statement are negative. Constitutional: Denies: fever, chills Eyes: Denies: vision change ENT: Denies: ear pain, throat pain Respiratory: Denies: cough, dyspnea Cardiovascular: Denies: chest pain, palpitations, dyspnea on exertion Endocrine: Denies: fatigue Gastrointestinal: Denies: abdominal pain, nausea, vomiting Genitourinary: Denies: dysuria Musculoskeletal: Denies: back pain Skin: Denies: rash, lesions Neurological: Denies: headache Past Medical History Past Medical History: Hypertension Additional Past Medical History / Comment(s): anemia History of Any Multi-Drug Resistant Organisms: None Reported Past Surgical History: No Surgical Hx Reported Additional Past Surgical History / Comment(s): colonoscopy Past Psychological History: No Psychological Hx Reported Smoking Status: Never smoker Past Alcohol Use History: None Reported Past Drug Use History: None Reported General Exam Limitations: no limitations General appearance: alert, in no apparent distress Head exam: Present: atraumatic, normocephalic Eye exam: Present: normal appearance ENT exam: Present: normal exam Neck exam: Present: normal inspection Respiratory exam: Present: normal lung sounds bilaterally. Absent: respiratory distress, wheezes Cardiovascular Exam: Present: regular rate, normal rhythm GI/Abdominal exam: Present: soft. Absent: distended, tenderness Rectal exam: Present: deferred Extremities exam: Present: normal inspection Back exam: Present: normal inspection Neurological exam: Present: alert, oriented X3 Psychiatric exam: Present: normal affect, normal mood Skin exam: Present: warm, dry, intact Course Vital Signs 03/16/17 03/16/17 03/16/17 19:39 21:29 22:33 Temperature 98.6 F 99.2 F 99 F Pulse Rate 84 82 99 Respiratory 20 18 18 Rate Blood Pressure 132/70 153/72 145/65 O2 Sat by Pulse 100 100 99 Oximetry EKG Findings - EKG Results: EKG: interpreted by ERAND EKG shows: sinus rhythm Medical Decision Making - Medical Decision Making Patient presents with chief complaint of chest pain, 8 weeks . On initial evaluation, vital signs are stable. EKG performed at 1948 shows normal sinus rhythm with a rate of 77 bpm. Segments appear to be within normal limits. There is no ST segment elevations or depressions. EKG is nonspecific. Patient describes atypical type chest pain. At this time, given the atypical nature of her chest pain and the benign appearance of her EKG, cardiac etiology is thought to be less likely. Patient is perk negative, further she does not identify any pleuritic-type chest pain or dyspnea of any kind. Triage note was reviewed, patient again denies pleuritic nature of her chest pain. Patient does admit to a history of anemia, will send for basic labs, give patient IV hydration, and sent for a chest x-ray. 10:54 PM Chest x-ray shows no acute process. There is mild leukocytosis however there are no physical signs of infection. Patient was given 2 L of IV fluid in the emergency department and states she feels better. Patient states that she is currently taking a vitamin and she was encouraged to continue doing so. 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 At this time, all questions are answered, patient is stable for discharge. - Lab Data Result diagrams: 03/16/17 20:50 03/16/17 20:50 Lab Results 03/16/17 03/16/17 Range/Units 20:50 20:50 WBC 17.0 H (3.8-10.6) k/uL RBC 4.27 (3.80-5.40) m/uL Hgb 10.1 L (11.4-16.0) gm/dL Hct 32.9 L (34.0-46.0) % MCV 77.0 L (80.0-100.0) fL MCH 23.6 L (25.0-35.0) pg MCHC 30.7 L (31.0-37.0) g/dL RDW 16.2 H (11.5-15.5) % Plt Count 249 (150-450) k/uL Neutrophils % 75 % Lymphocytes % 18 % Monocytes % 3 % Eosinophils % 2 % Basophils % 0 % Neutrophils # 12.8 H (1.3-7.7) k/uL Lymphocytes # 3.1 (1.0-4.8) k/uL Monocytes # 0.6 (0-1.0) k/uL Eosinophils # 0.3 (0-0.7) k/uL Basophils # 0.1 (0-0.2) k/uL Hypochromasia Slight Anisocytosis Slight Microcytosis Slight Sodium 136 L (137-145) mmol/L Potassium 4.0 (3.5-5.1) mmol/L Chloride 106 (98-107) mmol/L Carbon Dioxide 18 L (22-30) mmol/L Anion Gap 12 mmol/L BUN 12 (7-17) mg/dL Creatinine 0.59 (0.52-1.04) mg/dL Est GFR (MDRD) Af Amer >60 (>60 ml/min/1.73 sqM) Est GFR (MDRD) Non-Af >60 (>60 ml/min/1.73 sqM) Glucose 74 (74-99) mg/dL Calcium 9.4 (8.4-10.2) mg/dL Disposition Clinical Impression: Chest pain Disposition: HOME SELF-CARE Condition: Good Instructions: Chest Pain (ED) Referrals: Vale Lawson MD [Primary Care Provider] - 1-2 days
[2017-03-16] MEDS ORDERED: SODIUM CHLORIDE 0.9% 2,000 ML IV STA (21:28)
--- NOTE | 2017-03-16 21:28 | XR ---
EXAMINATION TYPE: XR chest 2V DATE OF EXAM: 03/16/2017 COMPARISON: 10/07/2015 HISTORY: Chest pain TECHNIQUE: Frontal and lateral views of the chest are obtained. FINDINGS: Heart and mediastinum are normal. Lungs are clear. Diaphragm is normal. IMPRESSION: Normal chest. No change.
[2017-03-16 21:31] VITALS: RESP 18
[2017-03-16 22:35] VITALS: BP 145/65; PULSE 99; TEMP 99
== END 2017-03-16 22:59 | disposition home or self-care (01) ==
LOC: EC 19:37
DX: O26.891 Other specified pregnancy related conditions, first trimester (principal); R07.89 Other chest pain; Z3A.08 8 weeks gestation of pregnancy
CPT/HCPCS: 36415; 71020; 80048; 85025; 93005; 96360; 99285

== ENCOUNTER → 2017-03-26 | Outpatient (CLI) | payer OTHER ==
[2017-03-26 11:04] LABS: ALT 30 U/L (9-52); AST 21 U/L (14-36); Glucose 89 mg/dL (74-99); Non-African American GFR(MDRD) >60 (>60 ml/min/1.73 sqM); Uric Acid 3.4 mg/dL (3.7-7.4)
[2017-03-26 11:12] LABS: CH 23.3; CHCM 29.8; HCT 34.1 % (34.0-46.0); HDW 2.37; HGB 10.1 gm/dL (11.4-16.0); Hypochromasia Marked; MCH 23.3 pg (25.0-35.0); MCHC 29.7 g/dL (31.0-37.0); MCV 78.4 fL (80.0-100.0); RBC 4.34 m/uL (3.80-5.40); RDW 15.6 % (11.5-15.5); WBC 14.6 k/uL (3.8-10.6)
[2017-03-26 11:32] LABS: Hepatitis B Surface Ag Index 0.05
[2017-03-26 15:41] LABS: Treponemal Ab Non-Reactive (Non-Reactive)
== END | disposition home or self-care (01) ==
LOC: LABWHC1 10:02
PROVIDERS: ATTEND Obstetrics & Gynecology
DX: O26.812 Pregnancy related exhaustion and fatigue, second trimester (principal); Z3A.00 Weeks of gestation of pregnancy not specified
CPT/HCPCS: 36415; 82565; 82947; 84450; 84460; 84550; 85027; 86762; 86780; 86850; 86900; 86901; 87340; 87390

== ENCOUNTER 2017-03-30 05:50 | Emergency (ER) | payer OTHER ==
[2017-03-30 05:55] VITALS: RESP 16
[2017-03-30] MEDS ORDERED: ACETAMINOPHEN TAB 325 MG TAB PO STA (06:15)
[2017-03-30] MEDS ORDERED: SODIUM CHLORIDE 0.9% 1,000 ML IV STA (06:15)
[2017-03-30 06:31] LABS: Basophils % (A) 0 %; CH 23.6; CHCM 29.7; Eosinophils # (A) 0.2 k/uL (0-0.7); Eosinophils % (A) 1 %; HCT 33.7 % (34.0-46.0); HDW 2.39; HGB 9.9 gm/dL (11.4-16.0); Hypochromasia Marked; Luc # (Auto) 0.23; Luc % (Auto) 2; Lymphocytes # (A) 3.4 k/uL (1.0-4.8); Lymphocytes % (A) 24 %; MCH 23.3 pg (25.0-35.0); MCHC 29.3 g/dL (31.0-37.0); MCV 79.6 fL (80.0-100.0); Mean Platelet Volume 6.8; Monocytes # (A) 0.7 k/uL (0-1.0); Monocytes % (A) 5 %; Neutrophils # (A) 9.8 k/uL (1.3-7.7); Neutrophils % (A) 69 %; RBC 4.23 m/uL (3.80-5.40); RDW 15.6 % (11.5-15.5); WBC 14.4 k/uL (3.8-10.6); WBC (Perox) 14.79
--- NOTE | 2017-03-30 06:37 | ED ---
Abdominal Pain HPI - General Chief Complaint: Abdominal Pain Stated Complaint: abd pain-10 wks Time Seen by Provider: 03/30/17 06:05 Source: patient Mode of arrival: ambulatory Limitations: no limitations - History of Present Illness Initial Comments: This patient is a 26-year-old woman who believes that she is over 8 weeks now and presents with bilateral lower quadrant abdominal cramping that started about 8 hours ago. The patient also had some associated nausea. Patient denies any change in bowel movements or urination. Patient denies any vaginal discharge or bleeding. MD Complaint: abdominal pain Onset/Timin -: hour(s) Location: LLQ, RLQ, suprapubic Radiation: back Migration to: no migration Severity: moderate Quality: cramping Consistency: constant Improves With: nothing Worsens With: nothing Associated Symptoms: nausea - Related Data LMP (females 10-50): 2 months Patient : Yes Previous Rx's Medication Instructions Recorded Amoxicillin 500 mg PO Q8H #21 capsule 03/30/17 Allergies Allergy/AdvReac Type Severity Reaction Status Date / Time No Known Allergies Allergy Verified 03/30/17 05:55 Review of Systems ROS Statement: Those systems with pertinent positive or pertinent negative responses have been documented in the HPI. ROS Other: All systems not noted in ROS Statement are negative. Constitutional: Denies: fever, chills Respiratory: Denies: cough, dyspnea Cardiovascular: Denies: chest pain, palpitations, edema Gastrointestinal: Reports: abdominal pain, nausea. Denies: vomiting, diarrhea, constipation, hematemesis, melena, hematochezia Genitourinary: Denies: dysuria, frequency, hematuria, discharge, abnormal menses Musculoskeletal: Denies: back pain Skin: Denies: rash Neurological: Denies: headache Past Medical History Past Medical History: Hypertension Additional Past Medical History / Comment(s): anemia History of Any Multi-Drug Resistant Organisms: None Reported Past Surgical History: No Surgical Hx Reported Additional Past Surgical History / Comment(s): colonoscopy Past Psychological History: No Psychological Hx Reported Smoking Status: Never smoker Past Alcohol Use History: None Reported Past Drug Use History: None Reported General Exam Limitations: no limitations General appearance: alert, in no apparent distress Head exam: Present: atraumatic, normocephalic Eye exam: Present: normal appearance. Absent: scleral icterus, conjunctival injection Respiratory exam: Present: normal lung sounds bilaterally. Absent: respiratory distress, wheezes, rales, rhonchi, stridor Cardiovascular Exam: Present: regular rate, normal rhythm, normal heart sounds. Absent: systolic murmur, diastolic murmur, rubs, gallop GI/Abdominal exam: Present: soft. Absent: distended, tenderness, guarding, rebound, rigid, mass, pulsatile mass, hernia Extremities exam: Present: normal inspection, normal capillary refill. Absent: pedal edema, calf tenderness Back exam: Present: normal inspection. Absent: CVA tenderness (R), CVA tenderness (L) Neurological exam: Present: alert Skin exam: Present: warm, dry, intact, normal color. Absent: rash Course Vital Signs 03/30/17 05:52 Temperature 98.2 F Pulse Rate 94 Respiratory 16 Rate Blood Pressure 145/85 O2 Sat by Pulse 100 Oximetry Medical Decision Making - Lab Data Result diagrams: 03/30/17 06:20 03/30/17 06:20 Lab Results 03/30/17 03/30/17 03/30/17 Range/Units 06:20 06:20 06:25 WBC 14.4 H (3.8-10.6) k/uL RBC 4.23 (3.80-5.40) m/uL Hgb 9.9 L (11.4-16.0) gm/dL Hct 33.7 L (34.0-46.0) % MCV 79.6 L (80.0-100.0) fL MCH 23.3 L (25.0-35.0) pg MCHC 29.3 L (31.0-37.0) g/dL RDW 15.6 H (11.5-15.5) % Plt Count 219 (150-450) k/uL Neutrophils % 69 % Lymphocytes % 24 % Monocytes % 5 % Eosinophils % 1 % Basophils % 0 % Neutrophils # 9.8 H (1.3-7.7) k/uL Lymphocytes # 3.4 (1.0-4.8) k/uL Monocytes # 0.7 (0-1.0) k/uL Eosinophils # 0.2 (0-0.7) k/uL Basophils # 0.0 (0-0.2) k/uL Hypochromasia Marked Sodium 134 L (137-145) mmol/L Potassium 4.2 (3.5-5.1) mmol/L Chloride 104 (98-107) mmol/L Carbon Dioxide 20 L (22-30) mmol/L Anion Gap 10 mmol/L BUN 9 (7-17) mg/dL Creatinine 0.50 L (0.52-1.04) mg/dL Est GFR (MDRD) Af Amer >60 (>60 ml/min/1.73 sqM) Est GFR (MDRD) Non-Af >60 (>60 ml/min/1.73 sqM) Glucose 94 (74-99) mg/dL Calcium 9.6 (8.4-10.2) mg/dL Total Bilirubin 0.3 (0.2-1.3) mg/dL AST 21 (14-36) U/L ALT 27 (9-52) U/L Alkaline Phosphatase 67 (38-126) U/L Total Protein 6.6 (6.3-8.2) g/dL Albumin 3.8 (3.5-5.0) g/dL Amylase <30 L (30-110) U/L Lipase 58 (23-300) U/L Urine Color Yellow Urine Appearance Turbid H (Clear) Urine pH 6.0 (5.0-8.0) Ur Specific [place] 1.021 (1.001-1.035) Urine Protein Trace H (Negative) Urine Glucose (UA) Negative (Negative) Urine Ketones Negative (Negative) Urine Blood Negative (Negative) Urine Nitrite Negative (Negative) Urine Bilirubin Negative (Negative) Urine Urobilinogen <2.0 (<2.0) mg/dL Ur Leukocyte Esterase Large H (Negative) Urine WBC 28 H (0-5) /hpf Ur Squamous Epith Cells 38 H (0-4) /hpf Urine Mucus Rare H (None) /hpf Disposition Clinical Impression: UTI (urinary tract infection) Disposition: HOME SELF-CARE Condition: Good Instructions: Urinary Tract Infection in (ED) Prescriptions: Amoxicillin 500 mg PO Q8H #21 capsule Referrals: Vale Lawson MD [Primary Care Provider] - 1-2 days
[2017-03-30 06:41] LABS: ALT 27 U/L (9-52); AST 21 U/L (14-36); Alkaline Phosphatase 67 U/L (38-126); Amylase <30 U/L (30-110); Anion Gap 10 mmol/L; Blood Urea Nitrogen 9 mg/dL (7-17); Calcium 9.6 mg/dL (8.4-10.2); Carbon Dioxide 20 mmol/L (22-30); Chloride 104 mmol/L (98-107); Glucose 94 mg/dL (74-99); Non-African American GFR(MDRD) >60 (>60 ml/min/1.73 sqM); Potassium 4.2 mmol/L (3.5-5.1); Sodium 134 mmol/L (137-145); Total Bilirubin 0.3 mg/dL (0.2-1.3); Total Protein 6.6 g/dL (6.3-8.2)
[2017-03-30 06:55] LABS: Appearance,Urine Turbid (Clear); Bilirubin,Urine Negative (Negative); Glucose,Urine (UA) Negative (Negative); Ketones,Urine Negative (Negative); Leukocyte Esterase,Urine Large (Negative); Mucus,Urine Rare /hpf; Nitrite,Urine Negative (Negative); Particle Count 9940; Protein,Urine Trace (Negative); Specific Gravity,Urine 1.021 (1.001-1.035); Squamous Epithelial Cell,Urine 38 /hpf (0-4); UA Billing (MACRO vs. MICRO) MICRO; Urobilinogen,Urine <2.0 mg/dL (<2.0); WBC,Urine 28 /hpf (0-5)
[2017-03-30] MEDS ORDERED: AMOXICILLIN 500MG STARTER PACK 3 CAP BTL PO STA (07:19)
[2017-03-30 07:49] VITALS: BP 136/74; PULSE 78; TEMP 97.4
== END 2017-03-30 07:47 | disposition home or self-care (01) ==
LOC: EC 05:50
DX: O23.41 Unspecified infection of urinary tract in pregnancy, first trimester (principal); Z3A.10 10 weeks gestation of pregnancy
CPT/HCPCS: 36415; 80053; 81001; 82150; 83690; 84702; 85025; 96360; 99284

== ENCOUNTER 2017-05-21 20:51 | Emergency (ER) | payer OTHER ==
[2017-05-21] MEDS ORDERED: ACETAMINOPHEN TAB 325 MG TAB PO STA (21:04)
[2017-05-21 21:24] LABS: Basophils % (A) 0 %; CH 24.8; CHCM 30.8; Eosinophils # (A) 0.3 k/uL (0-0.7); Eosinophils % (A) 2 %; HDW 2.35; HGB 10.4 gm/dL (11.4-16.0); Hypochromasia Slight; Luc # (Auto) 0.24; Luc % (Auto) 2; Lymphocytes # (A) 3.2 k/uL (1.0-4.8); Lymphocytes % (A) 21 %; MCH 24.7 pg (25.0-35.0); MCHC 30.7 g/dL (31.0-37.0); MCV 80.5 fL (80.0-100.0); Mean Platelet Volume 7.9; Monocytes # (A) 0.5 k/uL (0-1.0); Monocytes % (A) 3 %; Neutrophils % (A) 72 %; RBC 4.22 m/uL (3.80-5.40); RDW 14.4 % (11.5-15.5); WBC 15.2 k/uL (3.8-10.6); WBC (Perox) 14.76
[2017-05-21 21:30] LABS: Appearance,Urine Cloudy (Clear); Bilirubin,Urine Negative (Negative); Glucose,Urine (UA) Negative (Negative); Ketones,Urine Trace (Negative); Leukocyte Esterase,Urine Large (Negative); Mucus,Urine Rare /hpf; Nitrite,Urine Negative (Negative); PH, Urine 6.5 (5.0-8.0); Particle Count 6564; Protein,Urine Trace (Negative); RBC,Urine 18 /hpf (0-5); Specific Gravity,Urine 1.016 (1.001-1.035); Squamous Epithelial Cell,Urine 23 /hpf (0-4); UA Billing (MACRO vs. MICRO) MICRO; Urobilinogen,Urine <2.0 mg/dL (<2.0); WBC,Urine 39 /hpf (0-5)
--- NOTE | 2017-05-21 21:35 | ED ---
Abdominal Pain HPI - General Chief Complaint: Abdominal Pain Stated Complaint: Abd Pain Time Seen by Provider: 05/21/17 20:57 Source: patient Mode of arrival: ambulatory Limitations: no limitations - History of Present Illness Initial Comments: This is a 26-year-old female patient who presents to the emergency department today for complaints of left pelvic pain. Patient is 17 weeks . She states that the pain started approximately 6 hours ago, she states it is sharp in nature and worsens with bending forward, walking, and palpation. She is currently rating the pain at a 7 out of 10 on the pain scale. She denies any abnormal vaginal bleeding or discharge. Denies any contraction type pain. She denies any hematuria, dysuria, or urinary urgency. States that she has been urinating more frequently. She sates that she has been constipated. She states that she has passed blood in her stool today, describes it as bright red , states it was a small amount. States that she has had this before and has been diagnosed with internal hemorrhoids. Patient denies any recent rash, fever , chills, shortness breath, chest pain, abdominal pain, nausea, vomiting, back pain, numbness, tingling, dizziness, weakness, headache, visual changes, or any other complaints. - Related Data Home Medications Medication Instructions Recorded Confirmed Aspirin 81 mg PO DAILY 05/05/17 05/21/17 Pnv,Calcium 72/Iron/Folic Acid 1 tab PO DAILY 05/05/17 05/21/17 [ Plus Tablet] Previous Rx's Medication Instructions Recorded Amoxicillin 500 mg PO Q12HR #14 cap 05/21/17 Allergies Allergy/AdvReac Type Severity Reaction Status Date / Time No Known Allergies Allergy Verified 05/21/17 21:23 Review of Systems ROS Statement: Those systems with pertinent positive or pertinent negative responses have been documented in the HPI. ROS Other: All systems not noted in ROS Statement are negative. Past Medical History Past Medical History: Hypertension Additional Past Medical History / Comment(s): anemia History of Any Multi-Drug Resistant Organisms: None Reported Past Surgical History: No Surgical Hx Reported Additional Past Surgical History / Comment(s): colonoscopy Past Psychological History: No Psychological Hx Reported Smoking Status: Never smoker Past Alcohol Use History: None Reported Past Drug Use History: None Reported General Exam Limitations: no limitations General appearance: alert, in no apparent distress, other (This is a well- developed, well-nourished, nontoxic-appearing 26-year-old female patient in no acute distress. Vital signs upon presentation are temperature 97.6F, pulse 103 , respirations 18, blood pressure 170/80, pulse ox 100% on room air.) Eye exam: Present: normal appearance, PERRL, EOMI. Absent: scleral icterus, conjunctival injection, periorbital swelling ENT exam: Present: normal exam, normal oropharynx, mucous membranes moist Respiratory exam: Present: normal lung sounds bilaterally. Absent: respiratory distress, wheezes, rales, rhonchi, stridor Cardiovascular Exam: Present: regular rate, normal rhythm, normal heart sounds. Absent: systolic murmur, diastolic murmur, rubs, gallop, clicks GI/Abdominal exam: Present: soft, tenderness (Left pelvic tenderness), normal bowel sounds. Absent: distended, guarding, rebound, rigid Rectal exam: Present: normal rectal tone, heme (+) stool, hemorrhoids. Absent: tenderness Back exam: Present: normal inspection. Absent: CVA tenderness (R), CVA tenderness (L) Neurological exam: Present: alert, oriented X3, CN II-XII intact Psychiatric exam: Present: normal affect, normal mood Skin exam: Present: warm, dry, intact, normal color. Absent: rash Course Vital Signs 05/21/17 05/21/17 05/21/17 20:53 21:35 22:57 Temperature 97.6 F 98.3 F Pulse Rate 103 H 83 92 Respiratory 18 16 16 Rate Blood Pressure 170/80 154/75 164/74 O2 Sat by Pulse 100 100 96 Oximetry Medical Decision Making - Medical Decision Making 26-year-old female patient presents to the emergency department today with complaints of left sided pelvic pain, constipation, and bloody stools. Patient is 17 weeks . heart tones were 150, patient denied any vaginal bleeding or discharge. Physical examination did reveal some mild tenderness to the left lower pelvis. Labs reviewed and did reveal a white blood cell count of 15.2, hemoglobin of 10.4 (previously 9.9 on 03/30/17), urinalysis showed a cloudy appearance with trace protein, trace ketones, large amount of leukocyte esterase, 18 red blood cells, 39 white blood cells, and 23 squamous epithelial cells, with rare urine mucus. This has been sent for culture area did as she is we will treat her for urinary tract infection prior to culture results. Did perform a rectal examination and did have evidence of blood in the rectum. Patient does have a history of internal hemorrhoids, there is evidence of external hemorrhoids it is felt the blood is related to this as she has been straining to have a bowel movement today. Patient will be discharged home at this time to follow-up with her [employer] P[employer]ER and family doctor for further evaluation. Did explain how important it is for her to follow-up with the OB/ SEAM RU[facility]ER in regards to further management of her blood pressure. She is instructed to return here immediately should her symptoms worsen, should or she develops any new or concerning symptoms. She verbalizes understanding and agrees with this plan. - Lab Data Result diagrams: 05/21/17 21:12 05/21/17 21:12 Lab Results 05/21/17 05/21/17 05/21/17 Range/Units 21:12 21:12 21:15 WBC 15.2 H (3.8-10.6) k/uL RBC 4.22 (3.80-5.40) m/uL Hgb 10.4 L (11.4-16.0) gm/dL Hct 34.0 (34.0-46.0) % MCV 80.5 (80.0-100.0) fL MCH 24.7 L (25.0-35.0) pg MCHC 30.7 L (31.0-37.0) g/dL RDW 14.4 (11.5-15.5) % Plt Count 251 (150-450) k/uL Neutrophils % 72 % Lymphocytes % 21 % Monocytes % 3 % Eosinophils % 2 % Basophils % 0 % Neutrophils # 11.0 H (1.3-7.7) k/uL Lymphocytes # 3.2 (1.0-4.8) k/uL Monocytes # 0.5 (0-1.0) k/uL Eosinophils # 0.3 (0-0.7) k/uL Basophils # 0.0 (0-0.2) k/uL Hypochromasia Slight Sodium 135 L (137-145) mmol/L Potassium 3.8 (3.5-5.1) mmol/L Chloride 105 (98-107) mmol/L Carbon Dioxide 19 L (22-30) mmol/L Anion Gap 11 mmol/L BUN 6 L (7-17) mg/dL Creatinine 0.63 (0.52-1.04) mg/dL Est GFR (MDRD) Af Amer >60 (>60 ml/min/1.73 sqM) Est GFR (MDRD) Non-Af >60 (>60 ml/min/1.73 sqM) Glucose 115 H (74-99) mg/dL Calcium 10.0 (8.4-10.2) mg/dL Total Bilirubin <0.1 L (0.2-1.3) mg/dL AST 17 (14-36) U/L ALT 23 (9-52) U/L Alkaline Phosphatase 72 (38-126) U/L Total Protein 7.0 (6.3-8.2) g/dL Albumin 3.8 (3.5-5.0) g/dL Amylase <30 L (30-110) U/L Lipase 82 (23-300) U/L Urine Color Yellow Urine Appearance Cloudy H (Clear) Urine pH 6.5 (5.0-8.0) Ur Specific [place] 1.016 (1.001-1.035) Urine Protein Trace H (Negative) Urine Glucose (UA) Negative (Negative) Urine Ketones Trace H (Negative) Urine Blood Negative (Negative) Urine Nitrite Negative (Negative) Urine Bilirubin Negative (Negative) Urine Urobilinogen <2.0 (<2.0) mg/dL Ur Leukocyte Esterase Large H (Negative) Urine RBC 18 H (0-5) /hpf Urine WBC 39 H (0-5) /hpf Ur Squamous Epith Cells 23 H (0-4) /hpf Urine Mucus Rare H (None) /hpf Disposition Clinical Impression: Abdominal pain, Urinary tract infection during , Rectal bleed Disposition: HOME SELF-CARE Condition: Good Instructions: Rectal Bleeding (ED), Abdominal Pain in (ED), Urinary Tract Infection in (ED) Additional Instructions: Increase fluids. Increase vegetables and fruits in your diet. Follow-up with your primary care physician or GI specialist in 1-2 days. Return here immediately for any new, worsening, or concerning symptoms. Prescriptions: Amoxicillin 500 mg PO Q12HR #14 cap Referrals: Vale Lawson MD [Primary Care Provider] - 1-2 days Time of Disposition: 22:41
[2017-05-21 21:36] VITALS: RESP 16
[2017-05-21 21:46] LABS: ALT 23 U/L (9-52); AST 17 U/L (14-36); Alkaline Phosphatase 72 U/L (38-126); Amylase <30 U/L (30-110); Anion Gap 11 mmol/L; Blood Urea Nitrogen 6 mg/dL (7-17); Carbon Dioxide 19 mmol/L (22-30); Chloride 105 mmol/L (98-107); Glucose 115 mg/dL (74-99); Non-African American GFR(MDRD) >60 (>60 ml/min/1.73 sqM); Potassium 3.8 mmol/L (3.5-5.1); Sodium 135 mmol/L (137-145); Total Bilirubin <0.1 mg/dL (0.2-1.3)
[2017-05-21 22:59] VITALS: BP 164/74; PULSE 92; TEMP 98.3
== END 2017-05-21 23:00 | disposition home or self-care (01) ==
LOC: EC 20:51
DX: O23.42 Unspecified infection of urinary tract in pregnancy, second trimester (principal); O99.612 Diseases of the digestive system complicating pregnancy, second trimester; K62.5 Hemorrhage of anus and rectum; O16.2 Unspecified maternal hypertension, second trimester; O99.012 Anemia complicating pregnancy, second trimester; D64.9 Anemia, unspecified; Z3A.17 17 weeks gestation of pregnancy; Z79.82 Long term (current) use of aspirin; Z79.899 Other long term (current) drug therapy
CPT/HCPCS: 36415; 80053; 81001; 82150; 83690; 85025; 87086; 99284

== ENCOUNTER 2017-08-14 21:34 | Outpatient (CLI) | payer OTHER ==
[2017-08-14 23:04] VITALS: BP 146/76; PULSE 106; RESP 16; TEMP 97.9
--- NOTE | 2017-08-17 15:37 | P.MSEPDOC ---
Presenting Problems - Arrival Data Date of Arrival on Unit: 08/14/17 Time of Arrival on Unit: 21:35 Mode of Transport: Ambulatory - Complaint OB-Reason for Admission/Chief Complaint: Pain Comment: upper and lower abd burning sensation after having lifted boxes earlier in the evening Medical History - Information : 1 Para: 0 Term: 0 : 0 Abortions: Spontaneous or Elective: 0 Number of Living Children: 0 - Gestational Age Gestational Age by LITO (wks/days): 29 Weeks and 1 Days - History Complications: No Care Review of Systems - Review of Systems Constitutional: No problems Breast: No problems ENT: No problems Cardiovascular: No problems Respiratory: No problems Gastrointestinal: No problems Genitourinary: No problems Musculoskeletal: No problems Neurological: No problems Skin: No problems Vital Signs - Temperature Temperature: 97.9 F Temperature Source: Oral - Pulse Right Sitting Brachial Pulse Rate: 106 - Respirations Respiratory Rate: 16 Oxygen Delivery Method: Room Air O2 Sat by Pulse Oximetry: 99 - Blood Pressure Right Arm Sitting Blood Pressure: 146/76 Blood Pressure Mean: 99 Blood Pressure Source: Automatic Cuff Medical Screen Scoring (Pre) - Cervical Exam Dilation: 0 cm = 0 Membranes: Intact - Uterine Contractions Frequency: N/A Duration: N/A Intensity: N/A - Maternal Vital Signs Maternal Temperature: N/A Maternal Blood Pressure: N/A Signs of Preeclampsia: N/A Maternal Respirations: N/A - Pain Assessment Pain Location and Character: Lower, Abdomen Pain Scale Used: Numeric (1 - 10) Pain Intensity: 4 Pain Management Goal: 2 Pain Description: Burning Pain Radiation Location: 0 Pain Frequency: Constant Pain Duration: 2 Pain Duration Units: Hours Pain Behavior: None Exhibited Effects of Pain: 0 Pain Aggravating Factors: None Pharmacological Interventions: PRN Medication - Maternal Trauma Maternal Trauma: N/A - Assessment Baseline FHR: 145 Heart Rate - NICHD Category: Category I (Normal) = 0 NST: Reactive Position: N/A Station: N/A - Total Score Total Score (Pre): 0 - Level of Risk Level of Risk: Low (0-5) Physician Notification (Pre) - Physician Notified Physician Notified Date: 08/14/17 Physician Notified Time: 22:15 Physician/Practitioner Notifed:: Dr Costa Spoke With: Dr Costa New Order Received: Yes - Notification Comment Comment: Dr costa in department for another pt. reviewed strip Disposition - Disposition OB Disposition: Discharge to home Discharge Date: 08/14/17 Discharge Time: 23:00 I agree with the RN Medical Screening Exam: Yes Risk & Benefit of care provided described in d/c instruction: Yes Diagnosis: FALSE LABOR BEFORE 37 COMPLETED WEEKS OF GEST, THIRD TRI
== END 2017-08-14 23:00 | disposition home or self-care (01) ==
LOC: FBPOP 21:34
PROVIDERS: ATTEND Obstetrics & Gynecology
DX: O47.03 False labor before 37 completed weeks of gestation, third trimester (principal); Z3A.29 29 weeks gestation of pregnancy
CPT/HCPCS: 59025; G0463; 99213

== ENCOUNTER 2017-10-12 13:40 | Outpatient (CLI) | payer OTHER ==
[2017-10-12 14:05] VITALS: BP 138/73; TEMP 98.3
[2017-10-12 14:57] VITALS: PULSE 108; RESP 20
--- NOTE | 2017-10-13 07:29 | P.MSEPDOC ---
Presenting Problems - Arrival Data Date of Arrival on Unit: 10/12/17 Time of Arrival on Unit: 13:46 Mode of Transport: Ambulatory - Complaint OB-Reason for Admission/Chief Complaint: Possible Onset of Labor Medical History - Information : 1 Para: 0 Term: 0 : 0 Abortions: Spontaneous or Elective: 0 Number of Living Children: 0 - Gestational Age Gestational Age by LITO (wks/days): 37 Weeks and 4 Days - History Comment: c/o back pain and cramping in abd. Review of Systems - Review of Systems Constitutional: No problems Breast: No problems ENT: No problems Cardiovascular: No problems Respiratory: No problems Gastrointestinal: No problems Genitourinary: No problems Musculoskeletal: No problems Neurological: No problems Skin: No problems Vital Signs - Temperature Temperature: 98.3 F Temperature Source: Tympanic - Pulse Right Radial Pulse Rate: 108 Pulse Assessment Method: Automatic Cuff - Respirations Respiratory Rate: 20 Oxygen Delivery Method: Room Air O2 Sat by Pulse Oximetry: 98 - Blood Pressure Right Arm Blood Pressure: 138/73 Blood Pressure Mean: 94 Blood Pressure Source: Automatic Cuff Medical Screen Scoring (Pre) - Pain Assessment Pain Location and Character: Back, Abdomen Pain Scale Used: Numeric (1 - 10) Pain Description: Cramping Pain Frequency: Intermittent Pain Behavior: Vocalization - Assessment Baseline FHR: 135 Heart Rate - NICHD Category: Category I (Normal) = 0 NST: Reactive Position: N/A Station: N/A - Total Score Total Score (Pre): 0 - Level of Risk Level of Risk: Low (0-5) Physician Notification (Pre) - Physician Notified Physician Notified Date: 10/12/17 Physician/Practitioner Notifed:: kate Spoke With: kate Medical Screen Scoring (Post) - Cervical Exam Dilation: 0 cm = 0 Membranes: Intact - Uterine Contractions Frequency: N/A Duration: N/A Intensity: N/A - Maternal Vital Signs Maternal Temperature: N/A Maternal Blood Pressure: N/A Signs of Preeclampsia: N/A Maternal Respirations: N/A - Assessment Heart Rate: 150 Heart Rate - NICHD Category: Category I (Normal) = 0 NST: Reactive Position: N/A Station: N/A - Total Score Total Score (Post): 0 - Post Treatment Level of Risk Post Treatment Level of Risk: Low (0-5) Physician Notification (Post) - Physician Notified Physician Notified Date: 10/12/17 Physician Notified Time: 14:55 Spoke With: dr love New Order Received: Yes - Notification Comment Comment: november discharge to home pt to keep her appointment with dr carlisle sunday10/15/2017 Disposition - Disposition OB Disposition: Discharge to home Discharge Date: 10/12/17 Discharge Time: 14:55 I agree with the RN Medical Screening Exam: Yes Risk & Benefit of care provided described in d/c instruction: Yes Diagnosis: FALSE LABOR AT OR AFTER 37 COMPLETED WEEKS OF GESTATION
== END 2017-10-12 14:55 | disposition home or self-care (01) ==
LOC: FBPOP 13:40
PROVIDERS: ATTEND Obstetrics & Gynecology
DX: O47.1 False labor at or after 37 completed weeks of gestation (principal); Z3A.37 37 weeks gestation of pregnancy
CPT/HCPCS: 59025; 99213

== ENCOUNTER 2017-10-16 17:00 | Inpatient (IN) | payer OTHER ==
[2017-10-17] MEDS ORDERED: BUTORPHANOL 1 MG/ML 1 ML VIAL IV PRN (16:00)
[2017-10-17] MEDS ORDERED: NIFEdipine XL 30 MG TAB.ER.24 PO STA (16:00)
[2017-10-17] MEDS ORDERED: ZOLPIDEM 5 MG TAB PO PRN (16:00)
[2017-10-17] MEDS ORDERED: DINOPROSTONE 10 MG INSERT.ER VAGINAL ONE (16:15)
[2017-10-17] MEDS ORDERED: METHYLERGONOVINE 0.2 MG/ML 1 ML AMP IM PRN (17:17)
[2017-10-17] MEDS ORDERED: CARBOPROST TROMETHAMINE 250 MCG/ML 1 ML AMP IM PRN (17:17)
[2017-10-17] MEDS ORDERED: OXYTOCIN 10 UNIT/ML 1 ML VIAL IM PRN (17:17)
[2017-10-17] MEDS ORDERED: LIDOCAINE 1% (PF) 10 MG/ML (30 ML SDV) SQ PRN (17:17)
[2017-10-17] MEDS ORDERED: TERBUTALINE 1 MG/ML VIAL SQ PRN (17:17)
[2017-10-17] MEDS: AMPICILLIN 2,000 MG in SODIUM CHLORIDE 0.9% 100 ML IVPB STA ×2 (19:31→20:11)
[2017-10-17] MEDS: LACTATED RINGERS 1,000 ML IV SCH (19:32)
[2017-10-17] MEDS ORDERED: LABETALOL 5 MG/ML VIAL MDV ONE (19:45)
[2017-10-17 19:46] LABS: Basophils % (A) 0 %; Eosinophils # (A) 0.1 k/uL (0-0.7); Eosinophils % (A) 1 %; HCT 34.3 % (34.0-46.0); HGB 10.6 gm/dL (11.4-16.0); Hypochromasia Slight; Lymphocytes # (A) 1.7 k/uL (1.0-4.8); Lymphocytes % (A) 9 %; MCH 24.4 pg (25.0-35.0); MCHC 30.9 g/dL (31.0-37.0); MCV 78.9 fL (80.0-100.0); Mean Platelet Volume 9.7; Monocytes # (A) 0.7 k/uL (0-1.0); Monocytes % (A) 4 %; Neutrophils % (A) 86 %; Platelet Count 217 k/uL (150-450); RBC 4.34 m/uL (3.80-5.40); RDW 14.6 % (11.5-15.5); WBC 18.6 k/uL (3.8-10.6)
[2017-10-17 19:49] VITALS: BMI 42.7
--- NOTE | 2017-10-17 19:52 | P.HPOB ---
History of Present Illness H&P Date: 10/17/17 Chief Complaint: LA[place] 26 year old presents at 38 weeks 2 days complaining of contractions every few minutes. Her cervix is 1-2/70/-2. heart tones 125-130 with moderate variability and reactive. She has had some hypertension with this and was placed on procardia 30xl by [facility] a few weeks ago. pre-eclamptic labs have been normal. Review of Systems All systems: negative Constitutional: Denies chills, Denies fever Eyes: denies blurred vision, denies pain Ears, nose, mouth and throat: Denies headache, Denies sore throat Cardiovascular: Denies chest pain, Denies shortness of breath Respiratory: Denies cough Gastrointestinal: Denies abdominal pain, Denies diarrhea, Denies nausea, Denies vomiting Genitourinary: Denies dysuria, Denies hematuria Musculoskeletal: Denies myalgias Integumentary: Denies pruritus, Denies rash Neurological: Denies numbness, Denies weakness Psychiatric: Denies anxiety, Denies depression Endocrine: Denies fatigue, Denies weight change Past Medical History Past Medical History: Hypertension History of Any Multi-Drug Resistant Organisms: None Reported Past Surgical History: No Surgical Hx Reported Additional Past Surgical History / Comment(s): colonoscopy Smoking Status: Never smoker Medications and Allergies Home Medications Medication Instructions Recorded Confirmed Type Aspirin 81 mg PO DAILY 05/05/17 10/17/17 History Pnv,Calcium 72/Iron/Folic Acid 1 tab PO DAILY 05/05/17 10/17/17 History [ Plus Tablet] NIFEdipine [Adalat cc] 30 mg PO DAILY 10/12/17 10/17/17 History Allergies Allergy/AdvReac Type Severity Reaction Status Date / Time No Known Allergies Allergy Verified 10/17/17 16:00 Exam Osteopathic Statement: *. No significant issues noted on an osteopathic structural exam other than those noted in the History and Physical/Consult. - Vital Signs Vital signs: Intake and Output 10/17/17 10/17/17 10/17/17 06:59 14:59 22:59 Other: Weight 120.202 kg Heart: RRR Lungs: CTAB Abdomen: soft, nontender Extremeties: neg chris's Assessment and Plan (1) Gestational hypertension Current Visit: Yes Status: Acute Code(s): O13.9 - GESTATIONAL HTN W/O SIGNIFICANT PROTEINURIA, UNSP TRIMESTER SNOMED Code(s): 92140926 (2) Normal labor Current Visit: Yes Status: Acute Code(s): O80 - ENCOUNTER FOR FULL-TERM UNCOMPLICATED DELIVERY; Z37.9 - OUTCOME OF DELIVERY, UNSPECIFIED SNOMED Code(s ): 47121628 Plan: 1.admit to [facility] 2. expectant management 3. monitor blood pressures 4. anticipate normal vaginal delivery
[2017-10-17] MEDS ORDERED: MAGNESIUM SULFATE-D5W PMX 1 GM in DEXTROSE/WATER 1 100ML.BAG IVPB SCH (20:15)
[2017-10-17 20:17] LABS: INR 0.9 (<1.2); Partial Thromboplastin Time 24.2 sec (22.0-30.0); Prothrombin Time 9.3 sec (9.0-12.0)
[2017-10-17] MEDS ORDERED: MAGNESIUM SULFATE-WATER PMX 4 GM in WATER FOR INJECTION 1 50ML.BAG IVPB STA (20:31)
[2017-10-17] MEDS ORDERED: MAGNESIUM SULFATE-WATER PMX 20 GM in WATER FOR INJECTION 1 500ML.BAG IV SCH (20:50)
[2017-10-17 21:02] LABS: ALT 22 U/L (9-52); AST 18 U/L (14-36); Blood Urea Nitrogen 9 mg/dL (7-17); LDH 393 U/L (313-618); Magnesium 1.2 mg/dL (1.6-2.3)
[2017-10-17] MEDS ORDERED: SODIUM CHLORIDE 0.9% 100 ML BAG ONE ×2 (21:20→23:03)
[2017-10-17] MEDS ORDERED: BUPIVACAINE (PF) 0.25% 30 ML VIAL ONE ×2 (21:20→23:03)
[2017-10-17] MEDS ORDERED: fentaNYL (PF) 50 MCG/ML 5 ML AMP ONE ×2 (21:20→23:03)
[2017-10-17] MEDS ORDERED: BUPIVACAINE (PF) 0.25% 25 ML, fentaNYL (PF) 200 MCG in SODIUM CHLORIDE 0.9% 71 ML EPIDURAL ONE (21:45)
[2017-10-17 22:36] LABS: Appearance,Urine Clear (Clear); Bilirubin,Urine Negative (Negative); Blood,Urine Small (Negative); Color,Urine Yellow; Glucose,Urine (UA) Negative (Negative); Ketones,Urine Negative (Negative); Leukocyte Esterase,Urine Negative (Negative); Mucus,Urine Rare /hpf; Nitrite,Urine Negative (Negative); PH, Urine 6.5 (5.0-8.0); Protein,Urine 1+ (Negative); RBC,Urine 10 /hpf (0-5); Squamous Epithelial Cell,Urine 2 /hpf (0-4); Urobilinogen,Urine <2.0 mg/dL (<2.0); WBC,Urine 1 /hpf (0-5)
--- NOTE | 2017-10-17 22:40 | P.PN ---
Progress Note - Text Progress Note Date: 10/17/17 Was called in to evaluate Ms. Joel due to elevated blood pressures. Initially Dr. Costa had admitted Ms. Joel for Cervidil ripening however her cervix was dilated therefore that was not initiated, she apparently did not take her blood pressure medication today and apparently has a history of hypertension that was diagnosed at some point during the . While in labor and delivery with contractions be noted every approximately 5 minutes and following spontaneous rupture membranes her blood pressures began to increase appreciably. She had several blood pressures in the 170/80-90 range and due to same was given 2 doses of labetalol. Preeclamptic labs were also ordered this time. Previous preeclamptic labs have all been normal. It was noted that following the labetalol her blood pressure did come down somewhat into the 150s over 70s range. Observation was done over the next approximate hour with occasional increase in blood pressure. Her contractions became stronger following spontaneous rupture membranes and due to her blood pressure a decision to allow her to have an epidural was made such hopefully we can see a decrease in her blood pressure following epidural placement. Discussion was held with the patient due to her remoteness from delivery on whether not she would prefer to have section she refuses section at this time. I did explain if her blood pressures continued to be elevated that it would be a necessity potentially as she was at risk for stroke or other myocardial infarction or other problems with a blood pressure that is that high. heart tones were in the 140s with good [id number] variability. She was reactive about 2 hours before the called me but since that time we have seen some decrease in reactivity but still good [id number] variability. Following initiation of magnesium sulfate I do not expect I will see much better reactivity due to suppression on the baby. On physical exam this is a morbidly obese - [place] female who is in some distress due to her contractions. She denies headache, epigastric pain, or visual changes. Her heart is otherwise regular and her lungs are clear. Extremities are without pain with 2+ pitting edema minimal to no central edema is noted. Deep tendon reflexes are +2 out of 4. Her is no clonus. On my exam she was dilated to 2 cm approximately 50% effaced -3 station with the cervix being somewhat posterior. Assessment intrauterine at 38 weeks following spontaneous rupture membranes and active labor. Gestational hypertension versus chronic hypertension cannot rule out superimposed preeclampsia while this is less likely due to laps. Plan magnesium sulfate as seizure prophylaxis with Lamar catheter for fluid monitoring. We will reevaluate blood pressures once epidural is in and make decisions on whether or not it is safe start dosing for augmentation of labor once we see how she reacts to the epidural.
[2017-10-17] MEDS ORDERED: CITRIC ACID-SODIUM CITRATE 15 ML CUP PO ONE (22:46)
[2017-10-17] MEDS ORDERED: ceFAZolin 3 GM in SODIUM CHLORIDE 0.9% 100 ML IVPB ONE (22:46)
[2017-10-17] MEDS ORDERED: diphenhydrAMINE 50 MG/ML 1 ML VIAL ONE (23:03)
[2017-10-17] MEDS ORDERED: ONDANSETRON 4 MG/2 ML VIAL ONE (23:03)
[2017-10-17] MEDS ORDERED: OXYTOCIN 10 UNIT/ML 1 ML VIAL ONE (23:03)
[2017-10-17] MEDS ORDERED: KETOROLAC 30 MG/ML 1 ML VIAL ONE (23:03)
[2017-10-17] MEDS ORDERED: ONDANSETRON 4 MG/2 ML VIAL IVP PRN (23:27)
[2017-10-17] MEDS ORDERED: MORPHINE SULFATE 4MG/4ML SYRG IVP PRN (23:27)
[2017-10-17] MEDS ORDERED: diphenhydrAMINE 50 MG/ML 1 ML VIAL IVP PRN (23:27)
[2017-10-17] MEDS ORDERED: NALOXONE 0.4 MG/ML 1 ML VIAL IV PRN (23:27)
--- NOTE | 2017-10-17 23:43 | P.OP ---
Date of Procedure: 10/17/17 Preoperative Diagnosis: IUP term: hypertension: non reassuring heart tones Postoperative Diagnosis: same Procedure(s) Performed: Primary low transverse section from Pfannenstiel Anesthesia: epidural Surgeon: Steven Bronson [employer] Molder #1: Enriqueta Burt Estimated Blood Loss (ml): 500 IV fluids (ml): 1,000 Urine output (ml): 100 Pathology: other (Placenta) Condition: stable Disposition: floor Operative Findings: Male scores of 6 and 8 at one and 5 minutes respectively and the weight was 7 lbs. 1 oz. was performed due to repetitive late decelerations with minimal variability. Description of Procedure: Patient was taken to the operating suite where a epidural anesthetic was noted to be adequate. She was prepped and draped in the normal sterile fashion placed in dorsal supine position with leftward tilt. Initially a Pfannenstiel skin incision was made and this incision was then carried through to underlying layer of the fascia was second knife. Fascia was then nicked in the midline and this opening was extended laterally with Smyth scissors. Superior and inferior aspect of this incision were then grasped tented up and bluntly and sharply dissected off the rectus muscles. Rectus muscles were then divided in the midline and blunt dissection through the peritoneum was done. This opening was then extended superiorly and inferiorly with good visualization of both bowel bladder. Bladder blade was then placed and the bladder flap was identified. It was entered sharply with Metzenbaum scissors and this opening was extended across the face of the uterus with Metzenbaum scissors. Knife was then used to incise the uterus and this incision was opened fully with hemostat and then extended bluntly. Attempts at bringing the head into the incision proved somewhat challenging even though the baby was relatively small it was in a right occiput transverse position and despite elevation we are unable to bring the baby fully into the incision therefore a vacuum was placed without difficulty and pumped to the minimal green level of mercury and with one pull and no pop offs lasting less than 10 seconds we are able to bring the baby's head into the incision fully and head was delivered. Vacuum was then removed and interim posterior shoulders delivered without difficulty with gentle rotation. Umbilical cord was then clamped cut usual fashion an nursery personnel was present to assume immediate care of the baby. Placenta was then delivered intact and Pitocin was added to the IV. Uterus was then exteriorized cleared of clots and debris and closed in 2 layers with 0 Vicryl suture. Once excellent hemostasis was obtained blood and debris was suctioned from the posterior cul-de-sac and the uterus was reinserted into the abdomen. Inspection of the incision revealed no areas of bleeding. Peritoneum was then closed with 0 Vicryl suture in a running fashion. Fascial layer was then closed with 0 Vicryl suture. One layer of 3-0 Vicryl was placed in deep subcuticular tissues to reapproximate the skin and close space. The skin was then closed with allyson. Sponge, lap, needle counts were all correct 2. Patient was then taken to the recovery room in stable and satisfactory condition.
[2017-10-18] MEDS: LACTATED RINGERS 1,000 ML IV SCH (03:48)
[2017-10-18] MEDS: AMPICILLIN 1,000 MG in SODIUM CHLORIDE 0.9% 50 ML IVPB SCH (04:20)
--- NOTE | 2017-10-18 07:07 | P.PN ---
Progress Note - Text Progress Note Date: 10/18/17 Postoperative day 1 status post section under epidural anesthesia, and epidural morphine given for postoperative analgesia, patient doing well, there is no anesthesia related complications, Patient had no headache, vital signs stable , Assessment and plan= postop day 1 status post , doing well there is no anesthesia related complication.
[2017-10-18] MEDS: KETOROLAC 30 MG/ML 1 ML VIAL IVP PRN ×2 (12:12→18:11)
--- NOTE | 2017-10-18 14:15 | P.PNOBGPC ---
Subjective - Subjective Principal diagnosis: S/P 1*LTCS POD #1 Interval history: PT seen and examined. BPs are much better today; 130's/60's. Mag sulfate will come off today and encouraged to get out of bed later today. Patient reports: Reports appetite normal, Reports voiding normally, Reports pain well controlled, Reports ambulating normally : doing well Objective - Vital Signs Latest vital signs: Vital Signs Temp Pulse Resp BP Pulse Ox 10/18/17 12:00 97.8 F 104 H 16 137/60 99 10/18/17 11:00 97 16 138/68 99 10/18/17 10:00 95 16 130/58 99 10/18/17 09:00 98 16 136/63 98 10/18/17 08:00 97.4 F L 104 H 16 125/58 98 10/18/17 07:00 16 10/18/17 06:00 18 10/18/17 04:16 98 10/18/17 04:00 99.0 F 100 16 143/63 98 10/18/17 02:27 14 10/18/17 01:45 98.8 F 81 16 147/65 100 10/18/17 00:45 79 16 152/71 98 10/18/17 00:30 83 16 150/70 100 10/18/17 00:27 100 10/18/17 00:15 82 16 144/65 97 10/18/17 00:00 14 132/66 100 10/17/17 23:45 98.4 F 88 14 115/62 10/17/17 23:27 14 100 10/17/17 19:45 98.2 F 87 20 167/109 Intake and Output 10/17/17 10/18/17 10/18/17 22:59 06:59 14:59 Intake Total 250 Output Total 226 701 4812 Balance 0 -850 -1000 Intake: IV 150 Magnesium Sulfate-Water 150 Pmx 4 gm In Water For Injection 1 50ml.bag @ 150 mls/hr IVPB ONCE STA Rx#:[id number] Lipid 100 Ampicillin 2,000 mg In 100 Sodium Chloride 0.9% 100 ml @ 200 mls/hr IVPB ONCE STA Rx#:[id number] Output: Urine 215 977 4714 Uretheral (Lamar) 700 Other: Voiding Method Indwelling Catheter Weight 120.202 kg - Exam Lungs: bilateral: normal Chest: Normal S1, Normal S2 Extremities: Present: normal Abdomen: Present: normal appearance, soft. Absent: distention, tenderness Incision: Present: normal, dry, intact Uterus: Present: normal, firm - Labs Labs: Abnormal Lab Results - Last 24 Hours (Table) 10/17/17 10/17/17 10/17/17 Range/Units 19:28 20:13 20:30 WBC 18.6 H (3.8-10.6) k/uL Hgb 10.6 L (11.4-16.0) gm/dL MCV 78.9 L (80.0-100.0) fL MCH 24.4 L (25.0-35.0) pg MCHC 30.9 L (31.0-37.0) g/dL Neutrophils # 16.0 H (1.3-7.7) k/uL Fibrinogen 620 H (200-500) mg/dL Magnesium 1.2 L (1.6-2.3) mg/dL Urine Protein (Negative) Urine Blood (Negative) Urine RBC (0-5) /hpf Urine Mucus (None) /hpf U Random Total Protein (<12) mg/dL 10/17/17 10/17/17 10/18/17 Range/Units 22:27 22:27 06:55 WBC (3.8-10.6) k/uL Hgb (11.4-16.0) gm/dL MCV (80.0-100.0) fL MCH (25.0-35.0) pg MCHC (31.0-37.0) g/dL Neutrophils # (1.3-7.7) k/uL Fibrinogen (200-500) mg/dL Magnesium 4.1 H (1.6-2.3) mg/dL Urine Protein 1+ H (Negative) Urine Blood Small H (Negative) Urine RBC 10 H (0-5) /hpf Urine Mucus Rare H (None) /hpf U Random Total Protein 55 H (<12) mg/dL Assessment and Plan (1) Gestational hypertension Current Visit: Yes Status: Resolved Code(s): O13.9 - GESTATIONAL HTN W/O SIGNIFICANT PROTEINURIA, UNSP TRIMESTER SNOMED Code(s): 31756247 (2) Normal labor Current Visit: Yes Status: Resolved Code(s): O80 - ENCOUNTER FOR FULL-TERM UNCOMPLICATED DELIVERY; Z37.9 - OUTCOME OF DELIVERY, UNSPECIFIED SNOMED Code(s ): 85820338 (3) Status post primary low transverse section Current Visit: Yes Status: Acute Code(s): Z98.891 - HISTORY OF UTERINE SCAR FROM PREVIOUS SURGERY SNOMED Code(s): 592523241 Plan: 1. increase ambulation 2. monitor BPs 3. pain control
[2017-10-18] MEDS ORDERED: ZOLPIDEM 5 MG TAB PO PRN (16:46)
[2017-10-18] MEDS ORDERED: SENNOSIDES-DOCUSATE SODIUM 1 EACH TAB PO STA (20:10)
[2017-10-19] MEDS ORDERED: SIMETHICONE 80 MG CHEWABLE PO PRN (02:55)
[2017-10-19] MEDS ORDERED: diphenhydrAMINE 50 MG/ML 1 ML VIAL IVP PRN ×2 (02:55)
[2017-10-19] MEDS ORDERED: diphenhydrAMINE 25 MG CAP PO PRN (02:55)
[2017-10-19] MEDS ORDERED: ACETAMINOPHEN TAB 325 MG TAB PO PRN (02:55)
[2017-10-19] MEDS ORDERED: METOCLOPRAMIDE 5 MG/ML 2 ML VIAL IVP PRN (02:55)
[2017-10-19] MEDS ORDERED: ONDANSETRON 4 MG/2 ML VIAL IVP PRN (02:55)
[2017-10-19] MEDS ORDERED: diphenhydrAMINE 50 MG CAP PO PRN (02:55)
[2017-10-19] MEDS: IBUPROFEN 600 MG TAB PO PRN ×2 (03:40→16:05)
[2017-10-19] MEDS: LACTATED RINGERS 1,000 ML IV SCH ×3 (06:14→06:16)
--- NOTE | 2017-10-19 08:31 | P.PNOBGPC ---
Subjective - Subjective Principal diagnosis: S/P 1*LTCS POD #2 Interval history: Patient seen and examined. Denies nausea, vomiting, chest pain, shortness of breath or calf pain. She is is taking Motrin for pain and it is controlled. Her blood pressures have been 140s over 70s. Patient reports: Reports appetite normal, Reports voiding normally, Reports pain well controlled, Reports ambulating normally [place]: doing well Objective - Vital Signs Latest vital signs: Vital Signs Temp Pulse Resp BP Pulse Ox 10/19/17 06:57 97.8 F 10/19/17 04:00 100.2 F H 107 H 16 147/74 10/19/17 00:00 98.4 F 84 16 149/79 99 10/18/17 22:00 16 10/18/17 20:00 98.5 F 94 16 148/75 100 10/18/17 18:00 18 99 10/18/17 16:00 98.0 F 98 18 130/80 99 10/18/17 14:00 18 99 10/18/17 12:00 97.8 F 104 H 16 137/60 99 10/18/17 11:00 97 16 138/68 99 10/18/17 10:00 95 16 130/58 99 10/18/17 09:00 98 16 136/63 98 Intake and Output 10/18/17 10/19/17 10/19/17 22:59 06:59 14:59 Output Total 350 Balance -350 Output: Urine 350 Other: # Voids 1 3 - Exam Lungs: bilateral: normal Chest: Normal S1, Normal S2 Extremities: Present: normal Abdomen: Present: normal appearance, soft. Absent: distention, tenderness Incision: Present: normal, dry, intact Uterus: Present: normal, firm Assessment and Plan (1) Gestational hypertension Current Visit: Yes Status: Resolved Code(s): O13.9 - GESTATIONAL HTN W/O SIGNIFICANT PROTEINURIA, UNSP TRIMESTER SNOMED Code(s): 10178212 (2) Normal labor Current Visit: Yes Status: Resolved Code(s): O80 - ENCOUNTER FOR FULL-TERM UNCOMPLICATED DELIVERY; Z37.9 - OUTCOME OF DELIVERY, UNSPECIFIED SNOMED Code(s ): 85148371 (3) Status post primary low transverse section Current Visit: Yes Status: Acute Code(s): Z98.891 - HISTORY OF UTERINE SCAR FROM PREVIOUS SURGERY SNOMED Code(s): 355617166 Plan: 1. Abdominal binder 2. Increase ambulation 3. Continue to monitor blood pressures closely
[2017-10-19] MEDS: SENNOSIDES-DOCUSATE SODIUM 1 EACH TAB PO SCH ×2 (09:30→20:00)
[2017-10-19] MEDS: Acetaminophen-Codeine 300-30mg TAB PO PRN ×2 (13:36→22:15)
[2017-10-20] MEDS: IBUPROFEN 600 MG TAB PO PRN (04:32)
[2017-10-20] MEDS: SENNOSIDES-DOCUSATE SODIUM 1 EACH TAB PO SCH (07:38)
[2017-10-20 08:01] VITALS: BP 157/75; PULSE 93; RESP 18; TEMP 98.3
--- NOTE | 2017-10-22 08:42 | P.DS ---
Providers Date of admission: 10/17/17 15:41 Expected date of discharge: 10/20/17 Attending physician: Angelina Costa Primary care physician: Stated None - Discharge Diagnosis(es) (1) Status post primary low transverse section Status: Acute Hospital Course: Patient presented in active labor. She had a primary low transverse for heart tones and elevated blood pressures. After the section blood pressures did normalize. She denied headache, chest pain, shortness of breath, nausea vomiting or fever, chills. She'll be discharged home day #3 in stable condition to follow-up with me in one week. Patient Condition at Discharge: Stable Plan - Discharge Summary New Discharge Prescriptions: New Acetaminophen-Codeine 300-30mg [Tylenol w/codeine #3] 2 each PO Q6HR PRN #30 tab PRN Reason: Pain Ibuprofen [Motrin] 600 mg PO Q6HR PRN #30 tab PRN Reason: Mild Pain Or Fever >= 100.5 No Action Pnv,Calcium 72/Iron/Folic Acid [ Plus Tablet] 1 tab PO DAILY Aspirin 81 mg PO DAILY NIFEdipine [Adalat cc] 30 mg PO DAILY Discharge Medication List Aspirin 81 mg PO DAILY 05/05/17 [History] Pnv,Calcium 72/Iron/Folic Acid [ Plus Tablet] 1 tab PO DAILY 05/05/17 [ History] NIFEdipine [Adalat cc] 30 mg PO DAILY 10/12/17 [History] Acetaminophen-Codeine 300-30mg [Tylenol w/codeine #3] 2 each PO Q6HR PRN #30 tab 10/20/17 [Rx] Ibuprofen [Motrin] 600 mg PO Q6HR PRN #30 tab 10/20/17 [Rx] Follow up Appointment(s)/Referral(s): Angelina Costa DO [Doctor of Osteopathic Medicine] - 1 Week Patient Instructions/Handouts: (DC) Discharge Disposition: HOME SELF-CARE
== END 2017-10-20 11:35 | disposition home or self-care (01) | DRG 765 ==
LOC: 4FBP 10-17 15:41
PROVIDERS: ADMIT Obstetrics & Gynecology; ATTEND Obstetrics & Gynecology
PROC: 00HU33Z Insertion of Infusion Device into Spinal Canal, Percutaneous Approach (ICD-10-PCS; 2017-10-17)
PROC: 3E0R3NZ Introduction of Analgesics, Hypnotics, Sedatives into Spinal Canal, Percutaneous Approach (ICD-10-PCS; 2017-10-17)
PROC: 10D00Z1 Extraction of Products of Conception, Low, Open Approach (ICD-10-PCS; principal; 2017-10-17 23:11)
DX: O13.4 Gestational [pregnancy-induced] hypertension without significant proteinuria, complicating childbirth (principal); Z68.41 Body mass index [BMI] 40.0-44.9, adult; E66.01 Morbid (severe) obesity due to excess calories; O99.214 Obesity complicating childbirth; O76 Abnormality in fetal heart rate and rhythm complicating labor and delivery; Z37.0 Single live birth; Z3A.38 38 weeks gestation of pregnancy; Z79.899 Other long term (current) drug therapy; Z79.82 Long term (current) use of aspirin; Z87.891 Personal history of nicotine dependence
CPT/HCPCS: 81001; 82565; 83615; 83735; 84156; 84450; 84460; 84520; 85025; 85384; 85610; 85730; 86850; 86900; 86901; 88307

== ENCOUNTER 2017-10-24 21:03 | Emergency (ER) | payer OTHER ==
[2017-10-24 21:29] VITALS: RESP 18
[2017-10-24] MEDS ORDERED: SODIUM CHLORIDE 0.9% 500 ML IV ONE (23:31)
[2017-10-24] MEDS ORDERED: KETOROLAC 30 MG/ML 1 ML VIAL IVP STA (23:31)
[2017-10-24 23:58] LABS: Basophils # (A) 0.1 k/uL (0-0.2); Basophils % (A) 0 %; Eosinophils # (A) 0.2 k/uL (0-0.7); Eosinophils % (A) 2 %; HCT 35.5 % (34.0-46.0); Hypochromasia Slight; Lymphocytes # (A) 3.5 k/uL (1.0-4.8); Lymphocytes % (A) 25 %; MCH 24.1 pg (25.0-35.0); MCHC 30.8 g/dL (31.0-37.0); Mean Platelet Volume 7.7; Monocytes # (A) 0.8 k/uL (0-1.0); Monocytes % (A) 5 %; Neutrophils # (A) 9.5 k/uL (1.3-7.7); Neutrophils % (A) 67 %; Platelet Count 352 k/uL (150-450); RBC 4.56 m/uL (3.80-5.40); RDW 14.5 % (11.5-15.5); WBC 14.1 k/uL (3.8-10.6)
[2017-10-25 00:05] LABS: ALT 22 U/L (9-52); AST 23 U/L (14-36); Albumin 3.7 g/dL (3.5-5.0); Alkaline Phosphatase 128 U/L (38-126); Anion Gap 14 mmol/L; Blood Urea Nitrogen 11 mg/dL (7-17); Calcium 9.7 mg/dL (8.4-10.2); Carbon Dioxide 24 mmol/L (22-30); Chloride 107 mmol/L (98-107); Glucose 104 mg/dL (74-99); LDH 504 U/L (313-618); Sodium 145 mmol/L (137-145); Total Bilirubin 0.3 mg/dL (0.2-1.3); Total Protein 6.7 g/dL (6.3-8.2); Uric Acid 5.4 mg/dL (3.7-7.4)
[2017-10-25 00:06] LABS: Appearance,Urine Cloudy (Clear); Bilirubin,Urine Negative (Negative); Blood,Urine Negative (Negative); Color,Urine Yellow; Glucose,Urine (UA) Negative (Negative); Ketones,Urine Negative (Negative); Leukocyte Esterase,Urine Large (Negative); Mucus,Urine Moderate /hpf; Nitrite,Urine Negative (Negative); PH, Urine 6.5 (5.0-8.0); Protein,Urine Trace (Negative); RBC,Urine 8 /hpf (0-5); Specific Gravity,Urine 1.017 (1.001-1.035); Squamous Epithelial Cell,Urine 1 /hpf (0-4); WBC,Urine 53 /hpf (0-5)
[2017-10-25] MEDS ORDERED: ACETAMINOPHEN TAB 325 MG TAB PO STA (00:41)
--- NOTE | 2017-10-25 00:43 | ED ---
General Adult HPI - General Chief complaint: Recheck/Abnormal Lab/Rx Stated complaint: high blood pressure Time Seen by Provider: 10/24/17 23:10 Source: patient Mode of arrival: ambulatory Limitations: no limitations - History of Present Illness Initial comments: 26-year-old female patient presents to the emergency department today for complaints of headache and elevated blood pressure. The patient is 1 week . States that she does take Procardia for elevated blood pressure. States that she did see her [employer]SFER [employer]LLER doctor Igor this morning and her blood pressure was in the 150s at that time. Patient states that she has been having headaches for the last couple of days. States that the encompassed her whole head into like a pressure. She denies any blurred or double vision. She denies any nausea or vomiting. She denies any numbness or tingling. She denies any weakness. Patient denies any history of similar headaches. Patient denies any recent rash, fever, chills, shortness breath, chest pain, abdominal pain, diarrhea, constipation, back pain, numbness, tingling, dizziness, weakness , hematuria, dysuria, urinary urgency, urinary frequency, headache, visual changes, or any other complaints. She denies any abnormal vaginal bleeding or discharge. - Related Data Home Medications Medication Instructions Recorded Confirmed Aspirin 81 mg PO DAILY 05/05/17 10/17/17 Pnv,Calcium 72/Iron/Folic Acid 1 tab PO DAILY 05/05/17 10/17/17 [ Plus Tablet] NIFEdipine [Adalat cc] 30 mg PO DAILY 10/12/17 10/17/17 Previous Rx's Medication Instructions Recorded Acetaminophen-Codeine 300-30mg 2 each PO Q6HR PRN #30 tab 10/20/17 [Tylenol w/codeine #3] Ibuprofen [Motrin] 600 mg PO Q6HR PRN #30 tab 10/20/17 Allergies Allergy/AdvReac Type Severity Reaction Status Date / Time No Known Allergies Allergy Verified 10/24/17 21:29 Review of Systems ROS Statement: Those systems with pertinent positive or pertinent negative responses have been documented in the HPI. ROS Other: All systems not noted in ROS Statement are negative. Past Medical History Past Medical History: Hypertension Additional Past Medical History / Comment(s): anemia History of Any Multi-Drug Resistant Organisms: None Reported Past Surgical History: Section Additional Past Surgical History / Comment(s): colonoscopy Past Anesthesia/Blood Transfusion Reactions: No Reported Reaction Past Psychological History: No Psychological Hx Reported Smoking Status: Never smoker Past Alcohol Use History: None Reported Past Drug Use History: None Reported - Past Family History Mother Additional Family Medical History / Comment(s): Anemic General Exam Limitations: no limitations General appearance: alert, in no apparent distress, other (This is a well- developed, well-nourished adult female patient in no acute distress. Vital signs upon presentation are temperature 98.3F, pulse 96, respirations 18, blood pressure 149/89, pulse ox 99% on room air.) Eye exam: Present: normal appearance, PERRL, EOMI. Absent: scleral icterus, conjunctival injection, periorbital swelling ENT exam: Present: normal exam, normal oropharynx, mucous membranes moist Respiratory exam: Present: normal lung sounds bilaterally. Absent: respiratory distress, wheezes, rales, rhonchi, stridor Cardiovascular Exam: Present: regular rate, normal rhythm, normal heart sounds. Absent: systolic murmur, diastolic murmur, rubs, gallop, clicks GI/Abdominal exam: Present: soft, normal bowel sounds. Absent: distended, tenderness, guarding, rebound, rigid Neurological exam: Present: alert, oriented X3, CN II-XII intact Psychiatric exam: Present: normal affect, normal mood Skin exam: Present: warm, dry, intact, normal color. Absent: rash Course Vital Signs 10/24/17 10/25/17 21:27 00:45 Temperature 98.3 F 97.8 F Pulse Rate 96 98 Respiratory 18 18 Rate Blood Pressure 149/89 127/66 O2 Sat by Pulse 99 100 Oximetry Medical Decision Making - Medical Decision Making 26-year-old female patient presents to the emergency department today for evaluation of headache and high blood pressure. Patient is 1 week . Labs reviewed and did show an elevated white blood cell count of 14.1, uric acid 5.4, LDH of 504. Urinalysis showed a cloudy appearance with trace protein , large leukocyte esterase, 8 red blood cells, 53 white blood cells, and moderate mucus. Patient did receive Toradol and Tylenol for headache here in the department. Blood pressure was down to 127/66. She is reporting mild improvement of symptoms. She is instructed to continue taking her Procardia as directed. She is instructed follow up with her [employer] as well as her primary care physician for recheck in 1-2 days. Return parameters discussed in detail. She verbalizes understanding and agrees with this plan. - Lab Data Result diagrams: 10/24/17 23:18 10/24/17 23:18 Lab Results 10/24/17 10/24/17 10/24/17 Range/Units 23:18 23:18 23:18 WBC 14.1 H (3.8-10.6) k/uL RBC 4.56 (3.80-5.40) m/uL Hgb 11.0 L (11.4-16.0) gm/dL Hct 35.5 (34.0-46.0) % MCV 78.0 L (80.0-100.0) fL MCH 24.1 L (25.0-35.0) pg MCHC 30.8 L (31.0-37.0) g/dL RDW 14.5 (11.5-15.5) % Plt Count 352 (150-450) k/uL Neutrophils % 67 % Lymphocytes % 25 % Monocytes % 5 % Eosinophils % 2 % Basophils % 0 % Neutrophils # 9.5 H (1.3-7.7) k/uL Lymphocytes # 3.5 (1.0-4.8) k/uL Monocytes # 0.8 (0-1.0) k/uL Eosinophils # 0.2 (0-0.7) k/uL Basophils # 0.1 (0-0.2) k/uL Hypochromasia Slight Sodium 145 (137-145) mmol/L Potassium 4.0 (3.5-5.1) mmol/L Chloride 107 (98-107) mmol/L Carbon Dioxide 24 (22-30) mmol/L Anion Gap 14 mmol/L BUN 11 (7-17) mg/dL Creatinine 0.60 (0.52-1.04) mg/dL Est GFR (CKD-EPI)AfAm >90 (>60 ml/min/1.73 sqM) Est GFR (CKD-EPI)NonAf >90 (>60 ml/min/1.73 sqM) Glucose 104 H (74-99) mg/dL Uric Acid 5.4 (3.7-7.4) mg/dL Calcium 9.7 (8.4-10.2) mg/dL Total Bilirubin 0.3 (0.2-1.3) mg/dL AST 23 (14-36) U/L ALT 22 (9-52) U/L Alkaline Phosphatase 128 H (38-126) U/L Lactate Dehydrogenase 504 (313-618) U/L Total Protein 6.7 (6.3-8.2) g/dL Albumin 3.7 (3.5-5.0) g/dL Urine Color Yellow Urine Appearance Cloudy H (Clear) Urine pH 6.5 (5.0-8.0) Ur Specific [place] 1.017 (1.001-1.035) Urine Protein Trace H (Negative) Urine Glucose (UA) Negative (Negative) Urine Ketones Negative (Negative) Urine Blood Negative (Negative) Urine Nitrite Negative (Negative) Urine Bilirubin Negative (Negative) Urine Urobilinogen 2.0 (<2.0) mg/dL Ur Leukocyte Esterase Large H (Negative) Urine RBC 8 H (0-5) /hpf Urine WBC 53 H (0-5) /hpf Ur Squamous Epith Cells 1 (0-4) /hpf Urine Mucus Moderate H (None) /hpf Disposition Clinical Impression: Headache, Elevated blood pressure reading Disposition: HOME SELF-CARE Condition: Good Instructions: Acute Headache (ED) Additional Instructions: Increase fluids. Follow up with OBGYN and primary care physician as soon as possible. Continue home medications as prescribed. Return here immediately for any new, worsening, or concerning symptoms. Is patient prescribed a controlled substance at discharge?: No Referrals: None,Stated [Primary Care Provider] - 1-2 days Time of Disposition: 00:43
[2017-10-25 00:47] VITALS: BP 127/66; PULSE 98; TEMP 97.8
== END 2017-10-25 00:57 | disposition home or self-care (01) ==
LOC: EC 21:03
DX: O99.89 Other specified diseases and conditions complicating pregnancy, childbirth and the puerperium (principal); R51 Headache; O10.13 Pre-existing hypertensive heart disease complicating the puerperium; I10 Essential (primary) hypertension; O99.03 Anemia complicating the puerperium; D72.829 Elevated white blood cell count, unspecified; Z79.82 Long term (current) use of aspirin; Z79.899 Other long term (current) drug therapy
CPT/HCPCS: 36415; 80053; 83615; 84550; 85025; 81001; 87086; 99284; 96374; 96361; J1885

== ENCOUNTER 2017-12-24 07:23 | Emergency (ER) | payer OTHER ==
[2017-12-24 07:31] VITALS: RESP 20; TEMP 98
--- NOTE | 2017-12-24 08:31 | ED ---
General Adult HPI - General Chief complaint: Vaginal Bleeding Stated complaint: Vaginal Bleeding, Pain when urinating Time Seen by Provider: 12/24/17 08:14 Source: patient, RN notes reviewed Mode of arrival: ambulatory Limitations: no limitations - History of Present Illness Initial comments: Patient 27-year-old female presents emergency room today with a chief complaint of vaginal bleeding with some dysuria. She does admit that she started menstrual cycle 3 days ago. She states been heavier than her usual menstrual cycle. Patient states that he began having symptoms of dysuria 2 days ago. She states burning sensation on urination. Patient states does have some cramping in the abdomen that is consistent with her menstrual cycle. Denies any other complaints. Patient denies any recent fever, chills, shortness of breath, chest pain, back pain, nausea or vomiting, numbness or tingling, constipation or diarrhea, headaches or visual changes, or any other complaints. - Related Data Home Medications Medication Instructions Recorded Confirmed Loratadine [Claritin] 10 mg PO DAILY 12/24/17 12/24/17 Previous Rx's Medication Instructions Recorded Phenazopyridine [Pyridium] 100 mg PO TID #9 day 12/24/17 Sulfamethox-Tmp 800-160Mg [Bactrim 1 tab PO Q12HR #6 tab 12/24/17 DS 800-160 mg] Allergies Allergy/AdvReac Type Severity Reaction Status Date / Time No Known Allergies Allergy Verified 12/24/17 07:57 Review of Systems ROS Statement: Those systems with pertinent positive or pertinent negative responses have been documented in the HPI. ROS Other: All systems not noted in ROS Statement are negative. Past Medical History Past Medical History: Hypertension Additional Past Medical History / Comment(s): anemia History of Any Multi-Drug Resistant Organisms: None Reported Past Surgical History: Section Additional Past Surgical History / Comment(s): colonoscopy Past Anesthesia/Blood Transfusion Reactions: No Reported Reaction Past Psychological History: No Psychological Hx Reported Smoking Status: Never smoker Past Alcohol Use History: None Reported Past Drug Use History: None Reported - Past Family History Mother Additional Family Medical History / Comment(s): Anemic General Exam Limitations: no limitations Course Vital Signs 12/24/17 07:29 Temperature 98 F Pulse Rate 83 Respiratory 20 Rate Blood Pressure 145/97 O2 Sat by Pulse 100 Oximetry Medical Decision Making - Medical Decision Making Patient reexamined at this time shows no signs of distress. Her vitals are stable. No fever. Patient admits to some abdominal cramping but states is consistent with menstrual cramps that she's had in the past. Patient admits to dysuria. Patient's urinalysis shows 10 white cells with 171 red cells. Culture is currently pending. Patient is symptomatic will start on antibiotic to cover for infection patient states she is not worried about any STDs. Patient is advised following up with the family doctor and [facility]. Advised return if any fever or increase worsen symptoms she states understanding and is in agreement. - Lab Data Lab Results 12/24/17 12/24/17 Range/Units 08:15 08:15 Urine Color Yellow Urine Appearance Clear (Clear) Urine pH 5.5 (5.0-8.0) Ur Specific [place] 1.014 (1.001-1.035) Urine Protein Trace H (Negative) Urine Glucose (UA) Negative (Negative) Urine Ketones Negative (Negative) Urine Blood Large H (Negative) Urine Nitrite Negative (Negative) Urine Bilirubin Negative (Negative) Urine Urobilinogen <2.0 (<2.0) mg/dL Ur Leukocyte Esterase Negative (Negative) Urine RBC 171 H (0-5) /hpf Urine WBC 10 H (0-5) /hpf Ur Squamous Epith Cells 1 (0-4) /hpf Urine Mucus Rare H (None) /hpf Urine HCG, Qual Not Detected (Not Detectd) Disposition Clinical Impression: Dysuria Disposition: HOME SELF-CARE Condition: Good Instructions: Urinary Tract Infection in Women (ED) Additional Instructions: Please use medication that has been sent to pharmacy of Bactrim and Pyridium as discussed. Please follow-up with [facility]/family doctor in the next 2 days of symptoms have not improved. Please return to emergency room if the symptoms increase or worsen or for any other concerns. Prescriptions: Phenazopyridine [Pyridium] 100 mg PO TID #9 day Sulfamethox-Tmp 800-160Mg [Bactrim DS 800-160 mg] 1 tab PO Q12HR #6 tab Is patient prescribed a controlled substance at d/c from ED?: No Referrals: Vale Lawson MD [Primary Care Provider] - 1-2 days Time of Disposition: 08:56
[2017-12-24 08:50] LABS: Appearance,Urine Clear (Clear); Bilirubin,Urine Negative (Negative); Blood,Urine Large (Negative); Color,Urine Yellow; Glucose,Urine (UA) Negative (Negative); Ketones,Urine Negative (Negative); Leukocyte Esterase,Urine Negative (Negative); Mucus,Urine Rare /hpf; Nitrite,Urine Negative (Negative); PH, Urine 5.5 (5.0-8.0); Protein,Urine Trace (Negative); RBC,Urine 171 /hpf (0-5); Specific Gravity,Urine 1.014 (1.001-1.035); Squamous Epithelial Cell,Urine 1 /hpf (0-4); Urobilinogen,Urine <2.0 mg/dL (<2.0); WBC,Urine 10 /hpf (0-5)
[2017-12-24 09:08] VITALS: BP 135/91; PULSE 65
== END 2017-12-24 09:05 | disposition home or self-care (01) ==
LOC: EC 07:23
DX: R30.0 Dysuria (principal); N93.9 Abnormal uterine and vaginal bleeding, unspecified; Z79.899 Other long term (current) drug therapy
CPT/HCPCS: 81001; 81025; 87086; 99284

== ENCOUNTER 2019-03-31 09:27 | Emergency (ER) | payer BC, OTHER ==
--- NOTE | 2019-03-31 10:26 | ED ---
General Adult HPI - General Chief complaint: Extremity Injury, Lower Stated complaint: lt foot swelling Time Seen by Provider: 03/31/19 10:04 Source: patient, RN notes reviewed Mode of arrival: ambulatory Limitations: physical limitation - History of Present Illness Initial comments: 28-year-old female with a past medical history of hypertension, anemia presents to the emergency department for a chief complaint of left foot and lower leg swelling 4 days. States that when she woke up 4 days ago she had some pain to the foot and the mid and medial calf that felt like a spasm. States that the swelling is now up to her knee and hurts behind her knee. States that she does still have pain when ambulating on the left foot but denies any known injury. Denies any history of blood clots, control use.States she has been trying to keep it elevated it does help but when she goes to work again it worsens.. Patient has no other complaints at this time including shortness of breath, chest pain, abdominal pain, nausea or vomiting, headache, or visual changes. - Related Data Home Medications Medication Instructions Recorded Confirmed No Known Home Medications 03/31/19 03/31/19 Allergies Allergy/AdvReac Type Severity Reaction Status Date / Time No Known Allergies Allergy Verified 03/31/19 09:49 Review of Systems ROS Statement: Those systems with pertinent positive or pertinent negative responses have been documented in the HPI. ROS Other: All systems not noted in ROS Statement are negative. Past Medical History Past Medical History: Hypertension Additional Past Medical History / Comment(s): anemia History of Any Multi-Drug Resistant Organisms: None Reported Past Surgical History: Section Additional Past Surgical History / Comment(s): colonoscopy Past Anesthesia/Blood Transfusion Reactions: No Reported Reaction Past Psychological History: No Psychological Hx Reported Smoking Status: Never smoker Past Alcohol Use History: Occasional Past Drug Use History: Marijuana - Past Family History Mother Additional Family Medical History / Comment(s): Anemic General Exam Limitations: physical limitation General appearance: alert, in no apparent distress Head exam: Present: atraumatic, normocephalic, normal inspection Eye exam: Present: normal appearance, PERRL, EOMI. Absent: scleral icterus, conjunctival injection, periorbital swelling ENT exam: Present: normal exam, mucous membranes moist Neck exam: Present: normal inspection, full ROM. Absent: tenderness, meningismus, lymphadenopathy Respiratory exam: Present: normal lung sounds bilaterally. Absent: respiratory distress, wheezes, rales, rhonchi, stridor Cardiovascular Exam: Present: regular rate, normal rhythm, normal heart sounds. Absent: systolic murmur, diastolic murmur, rubs, gallop, clicks Extremities exam: Present: full ROM (Full range of motion of the left foot and ankle including all digits of the left foot), tenderness (Generalized tenderness over the arch of the left foot. No tenderness to the ankle.), normal capillary refill (Capillary refill less than, DP pulse 2+ left lower extremity.), joint swelling (Mild nonpitting edema noted in the left foot and ankle area.). Absent: calf tenderness (No calf tenderness, negative Homans sign.) Course Vital Signs 03/31/19 09:35 Temperature 98.5 F Pulse Rate 80 Respiratory 17 Rate Blood Pressure 153/105 O2 Sat by Pulse 100 Oximetry Medical Decision Making - Medical Decision Making 28-year-old female with a past medical history of hypertension, anemia presents for left foot and lower leg swelling 4 days. States that she woke up and had some pain in the left foot. States she went to work and the swelling occurred. States that when she elevates it does improve but then when she goes to work again it worsens. On exam she does have mild edema of the left foot ankle and lower calf. No pitting edema. No ecchymosis. No calf tenderness. DP pulses 2+ and sensation is intact. X-ray of the left foot shows no acute osseous abnormality. Ultrasound of the left lower extremity shows no evidence for DVT. At this time and I do not see an emergent cause for her leg swelling. Patient was given Alberto wrap and directed to buy a compression stocking. Discussed a plan to follow up outpatient and returning here if she has any worsening symptoms. I discussed this case with attending Dr. Chavez who agrees with this assessment and treatment plan. Disposition Clinical Impression: Left leg swelling Disposition: HOME SELF-CARE Condition: Good Instructions (If sedation given, give patient instructions): Leg Edema (ED) Additional Instructions: Please follow up with primary care in 1-2 days. Use compression stockings and keep foot elevated when resting. Return to the emergency department if you have any worsening symptoms. Is patient prescribed a controlled substance at d/c from ED?: No Referrals: Vale Lawson MD [Primary Care Provider] - 1-2 days Time of Disposition: 12:17
--- NOTE | 2019-03-31 10:55 | XR ---
EXAMINATION TYPE: XR foot complete LT DATE OF EXAM: 03/31/2019 COMPARISON: NONE HISTORY: 28 year-old female left foot swelling and arch pain TECHNIQUE: 3 views FINDINGS: Incidental Campbell's toe. No acute fracture, subluxation, dislocation. Tiny plantar calcaneal spur. IMPRESSION: Tiny plantar calcaneal spur. No acute osseous abnormality seen.
--- NOTE | 2019-03-31 11:55 | US ---
EXAMINATION TYPE: US venous doppler duplex LE LT DATE OF EXAM: 03/31/2019 11:19 AM COMPARISON: NONE CLINICAL HISTORY: 28 year-old female rule out blood clot, swelling x 4 days. Left leg pain and swelli ng x 4 days SIDE PERFORMED: Left TECHNIQUE: The lower extremity deep venous system is examined utilizing real time linear array sonog michael with graded compression, doppler sonography and color-flow sonography. VESSELS IMAGED: External Iliac Vein (EIV) Common Femoral Vein Deep Femoral Vein Greater Saphenous Vein * Femoral Vein Popliteal Vein Small Saphenous Vein * Proximal Calf Veins (* superficial vessels) Left Leg: Appears negative for DVT IMPRESSION: No evidence for DVT within the left lower extremity imaged from the groin to the upper calf.
[2019-03-31 12:29] VITALS: BP 154/98; PULSE 60; RESP 18; TEMP 98.9
== END 2019-03-31 12:29 | disposition home or self-care (01) ==
LOC: EC 09:27
DX: M79.89 Other specified soft tissue disorders (principal)
CPT/HCPCS: 99283

== ENCOUNTER 2019-04-09 15:29 | Emergency (ER) | payer BC ==
[2019-04-09 15:50] VITALS: BP 142/96; PULSE 92; RESP 18; TEMP 98.6
--- NOTE | 2019-04-09 16:47 | US ---
EXAMINATION TYPE: US venous doppler duplex LE LT DATE OF EXAM: 04/09/2019 4:25 PM COMPARISON: NONE CLINICAL HISTORY: unilat leg swelling . swelling and no h/o dvt SIDE PERFORMED: Left TECHNIQUE: The lower extremity deep venous system is examined utilizing real time linear array sonog michael with graded compression, doppler sonography and color-flow sonography. VESSELS IMAGED: External Iliac Vein (EIV) Common Femoral Vein Deep Femoral Vein Greater Saphenous Vein * Femoral Vein Popliteal Vein Small Saphenous Vein * Proximal Calf Veins (* superficial vessels) Left Leg: Appears negative for DVT IMPRESSION: Normal exam. No evidence of deep venous thrombosis in the left leg.
--- NOTE | 2019-04-09 17:19 | ED ---
Extremity Problem HPI - General Chief complaint: Extremity Problem,Nontraumatic Stated complaint: leg swelling Time Seen by Provider: 04/09/19 15:56 Source: patient Mode of arrival: ambulatory Limitations: no limitations - History of Present Illness Initial comments: Patient is a 28-year-old female presenting to emergency Department with a chief complaint of leg swelling. Patient reports she developed left-sided leg edema approximately 13 days ago and has not resolved. Patient reports whenever she keeps elevated the swelling does resolve but returns after she begins to ambulate. Patient denies any cardio vascular process. Patient does report mild calf tenderness in the lower extremity. Patient also reports pain near the ankle and foot. Patient reports the pain is exacerbated with ovulation. Patient denies any trauma to the region. Patient does report a cough over the past 2 weeks but no shortness of breath. Patient is not on control. Patient denies any prolonged periods of activity. Patient is not currently undergoing chemotherapy treatment. - Related Data Home Medications Medication Instructions Recorded Confirmed No Known Home Medications 03/31/19 03/31/19 Allergies Allergy/AdvReac Type Severity Reaction Status Date / Time No Known Allergies Allergy Verified 03/31/19 09:49 Review of Systems ROS Statement: Those systems with pertinent positive or pertinent negative responses have been documented in the HPI. ROS Other: All systems not noted in ROS Statement are negative. Past Medical History Past Medical History: Hypertension Additional Past Medical History / Comment(s): anemia History of Any Multi-Drug Resistant Organisms: None Reported Past Surgical History: Section Additional Past Surgical History / Comment(s): colonoscopy Past Anesthesia/Blood Transfusion Reactions: No Reported Reaction Past Psychological History: No Psychological Hx Reported Smoking Status: Never smoker Past Alcohol Use History: Occasional Past Drug Use History: Marijuana - Past Family History Mother Additional Family Medical History / Comment(s): Anemic General Exam Limitations: no limitations General appearance: alert, in no apparent distress Head exam: Present: atraumatic, normocephalic, normal inspection Eye exam: Present: normal appearance ENT exam: Present: normal exam, mucous membranes moist, normal external ear exam Neck exam: Present: normal inspection Respiratory exam: Present: normal lung sounds bilaterally Cardiovascular Exam: Present: regular rate, normal rhythm, normal heart sounds Extremities exam: Present: normal inspection, full ROM, tenderness (foot, ankle and calf tendernesss), normal capillary refill, pedal edema (+2 nonpitting edema in lle), joint swelling, calf tenderness (Positive Homans in left leg) Back exam: Present: normal inspection, full ROM Neurological exam: Present: alert, oriented X3 Psychiatric exam: Present: normal affect, normal mood Skin exam: Present: warm, intact, normal color Course Vital Signs 04/09/19 15:47 Temperature 98.6 F Pulse Rate 92 Respiratory 18 Rate Blood Pressure 142/96 O2 Sat by Pulse 100 Oximetry Medical Decision Making - Medical Decision Making Patient is a 28-year-old female presenting to the emergency department with a chief complaint of leg swelling. Patient reported unilateral left-sided lower extremity swelling for approximately 13 days. Patient does report tenderness along the Foot and ankle. Patient denies any trauma to the region. Patient denies any shortness of breath but has developed a cough over the same period. Physical examination is indicative of a +2 nonpitting edema. Rest of examination is unremarkable. Ultrasound of the left lower extremity is negative for DVT. Patient advised to keep leg elevated and apply compression stockings. She advised to follow with primary care. Patient advised to return to emergency department if symptoms worsen. Disposition Clinical Impression: Leg edema, left Disposition: HOME SELF-CARE Condition: Stable Instructions (If sedation given, give patient instructions): Leg Edema (ED) Additional Instructions: Keep leg elevated. Apply compression stockings. Please follow-up with primary care. Is patient prescribed a controlled substance at d/c from ED?: No Referrals: Vale Lawson MD [Primary Care Provider] - 1-2 days Time of Disposition: 17:19
== END 2019-04-09 17:31 | disposition home or self-care (01) ==
LOC: EC 15:29
DX: R60.0 Localized edema (principal); R05 Cough; M25.572 Pain in left ankle and joints of left foot; M79.672 Pain in left foot
CPT/HCPCS: 99283

== ENCOUNTER → 2019-05-05 | Outpatient (CLI) | payer BC ==
--- NOTE | 2019-05-06 07:33 | ECHOF ---
Referral Reason:R60.9 pitting edema MEASUREMENTS -------- HEIGHT: 167.6 cm WEIGHT: 97.5 kg BP: RVIDd: 3.5 cm (< 3.3) IVSd: 1.2 cm (0.6 - 1.1) LVIDd: 4.3 cm (3.9 - 5.3) LVPWd: 1.3 cm (0.6 - 1.1) IVSs: 1.7 cm LVIDs: 3.0 cm LVPWs: 2.0 cm LAESV Index (A-L): 32.56 ml/m Ao Diam: 2.6 cm (2.0 - 3.7) AV Cusp: 2.0 cm (1.5 - 2.6) LA Diam: 3.9 cm (2.7 - 3.8) MV EXCURSION: 20.937 mm (> 18.000) MV EF SLOPE: 97 mm/s (70 - 150) EPSS: 0.4 cm MV E Patricio: 1.11 m/s MV DecT: 197 ms MV A Patricio: 0.76 m/s MV E/A Ratio: 1.46 RAP: 5.00 mmHg RVSP: 30.11 mmHg FINDINGS -------- Sinus rhythm. This was a technically good study. The left ventricular size is normal. There is mild concentric left ventricular hypertrophy. There is normal global left ventricular contractility. Overall left ventricular systolic function is nor mal with, an EF between 60 - 65 %. The diastolic filling pattern is normal for the age of the patie nt 10.58. The right ventricle is mildly enlarged. LA is midly dilated 29-33ml/m2. The right atrial size is normal. Interatrial and interventricular septum intact. There is no evidence of aortic regurgitation. There is no evidence of aortic stenosis. There is trace to mild mitral regurgitation. Mild tricuspid regurgitation present. There is no evidence of pulmonary hypertension. The right v entricular systolic pressure, as measured by Doppler, is 30.11mmHg. Trace/mild (physiologic) pulmonic regurgitation. The aortic root size is normal. Normal inferior vena cava with normal inspiratory collapse consistent with estimated right atrial pre ssure of 5 mmHg. There is no pericardial effusion. CONCLUSIONS -------- 1. Sinus rhythm. 2. This was a technically good study. 3. The left ventricular size is normal. 4. There is mild concentric left ventricular hypertrophy. 5. There is normal global left ventricular contractility. 6. Overall left ventricular systolic function is normal with, an EF between 60 - 65 %. 7. The diastolic filling pattern is normal for the age of the patient 10.58 8. The right ventricle is mildly enlarged. 9. LA is midly dilated 29-33ml/m2. 10. The right atrial size is normal. 11. Interatrial and interventricular septum intact. 12. There is no evidence of aortic regurgitation. 13. There is no evidence of aortic stenosis. 14. There is trace to mild mitral regurgitation. 15. Mild tricuspid regurgitation present. 16. There is no evidence of pulmonary hypertension. 17. The right ventricular systolic pressure, as measured by Doppler, is 30.11mmHg. 18. Trace/mild (physiologic) pulmonic regurgitation. 19. The aortic root size is normal. 20. Normal inferior vena cava with normal inspiratory collapse consistent with estimated right atrial pressure of 5 mmHg. 21. There is no pericardial effusion. [employer]: Alejandra Tejada RDCS
== END | disposition home or self-care (01) ==
LOC: RADECHMAIN 08:03
PROVIDERS: ATTEND Internal Medicine
DX: I08.1 Rheumatic disorders of both mitral and tricuspid valves (principal)
CPT/HCPCS: 93306

== ENCOUNTER → 2019-05-28 | Outpatient (CLI) | payer BC ==
--- NOTE | 2019-05-29 07:09 | US ---
EXAMINATION TYPE: US pelvic complete DATE OF EXAM: 05/28/2019 COMPARISON: NONE CLINICAL HISTORY: R19.07 ABD/PEL SWELLING. TECHNIQUE: Transabdominal (TA). Date of LMP: 05/18/19 EXAM MEASUREMENTS: Uterus: 7.5 x 3.8 x 5.1 cm Endometrial Stripe: 1.0 cm Right Ovary: 3.1 x 1.9 x 1.7 cm Left Ovary: 3.1 x 1.9 x 2.3 cm 1. Uterus: Anteverted wnl 2. Endometrium: wnl 3. Right Ovary: wnl 4. Left Ovary: wnl 5. Bilateral Adnexa: wnl 6. Posterior cul-de-sac: wnl IMPRESSION: No distinct abnormality appreciated.
== END | disposition home or self-care (01) ==
LOC: RADUSWWP 16:04
PROVIDERS: ATTEND Internal Medicine Cardiovascular Disease
DX: R19.07 Generalized intra-abdominal and pelvic swelling, mass and lump (principal)
CPT/HCPCS: 76856

== ENCOUNTER 2019-07-20 16:11 | Emergency (ER) | payer BC ==
[2019-07-20 16:25] VITALS: RESP 18
--- NOTE | 2019-07-20 17:08 | ED ---
Fall HPI - General Chief Complaint: Fall Stated Complaint: cramping Time Seen by Provider: 07/20/19 16:32 Source: patient Mode of arrival: ambulatory - History of Present Illness Initial Comments: Patient is a 28-year-old female presenting to emergency Department with co mplaints of lower abdominal cramping after she fell yesterday. Patient states she was walking up her basement stairs when she tripped and fell forward. Patient hit the front of her chest as well as her lower abdomen. She denies any abdominal pain however is having some lower suprapubic cramping as well as vaginal cramping. Patient states a week ago she took a test which was positive. She denies any vaginal bleeding at this time. . She has no other complaints from the fall. At upon arrival to the ER, vital signs are stable. - Related Data Home Medications Medication Instructions Recorded Confirmed No Known Home Medications 03/31/19 03/31/19 Allergies Allergy/AdvReac Type Severity Reaction Status Date / Time No Known Allergies Allergy Verified 07/20/19 16:25 Review of Systems ROS Statement: Those systems with pertinent positive or pertinent negative responses have been documented in the HPI. ROS Other: All systems not noted in ROS Statement are negative. Past Medical History Past Medical History: Hypertension Additional Past Medical History / Comment(s): anemia History of Any Multi-Drug Resistant Organisms: None Reported Past Surgical History: Section Additional Past Surgical History / Comment(s): colonoscopy Past Anesthesia/Blood Transfusion Reactions: No Reported Reaction Past Psychological History: No Psychological Hx Reported Smoking Status: Never smoker Past Alcohol Use History: Occasional Past Drug Use History: Marijuana - Past Family History Mother Additional Family Medical History / Comment(s): Anemic General Exam - General Exam Comments Initial Comments: GENERAL: Well-appearing, well-nourished and in no acute distress. HEAD: Atraumatic, normocephalic. EYES: Pupils equal round and reactive to light, extraocular movements intact, sclera anicteric, conjunctiva are normal. ENT: TMs normal, nares patent, oropharynx clear without exudates. Moist mucous membranes. NECK: Normal range of motion, supple without lymphadenopathy or JVD. LUNGS: Breath sounds clear to auscultation bilaterally and equal. No wheezes rales or rhonchi. Mild tenderness to the anterior chest with palpation. No overlying bruising or erythema. HEART: Regular rate and rhythm without murmurs, rubs or gallops. ABDOMEN: Mild suprapubic tenderness on palpation. Soft, normoactive bowel sounds. No guarding, no rebound. No masses appreciated. : Deferred EXTREMITIES: Normal range of motion, no pitting or edema. No clubbing or cyanosis. PSYCH: Normal mood, normal affect. SKIN: Warm, Dry, normal turgor, no rashes or lesions noted. Limitations: no limitations Course Vital Signs 07/20/19 07/20/19 16:22 18:32 Temperature 98.8 F 98.6 F Pulse Rate 92 103 H Respiratory 18 18 Rate Blood Pressure 162/104 155/90 O2 Sat by Pulse 99 99 Oximetry Medical Decision Making - Medical Decision Making Patient is a 28-year-old female presenting after she fell forward onto some s teps. She is also newly . UA confirms . Lab work shows no acute abnormalities, hCG Quant is 5600. UA shows no signs of infection. Ultrasound reveals evidence of early IUP. Follow up exam is recommended in 2 weeks to confirm a living fetus. Patient's blood type is O+. I discussed with patient that she most likely has a mild contusion to the anterior chest. Patient will follow up with her [facility] Dr. Costa. She is stable for discharge at this time and she is in agreement with this plan of care. Case discussed with Dr. Chapman. - Lab Data Result diagrams: 07/20/19 17:30 07/20/19 17:30 Lab Results 07/20/19 07/20/19 07/20/19 Range/Units 17:05 17:05 17:30 WBC (3.8-10.6) k/uL RBC (3.80-5.40) m/uL Hgb (11.4-16.0) gm/dL Hct (34.0-46.0) % MCV (80.0-100.0) fL MCH (25.0-35.0) pg MCHC (31.0-37.0) g/dL RDW (11.5-15.5) % Plt Count (150-450) k/uL Neutrophils % % Lymphocytes % % Monocytes % % Eosinophils % % Basophils % % Neutrophils # (1.3-7.7) k/uL Lymphocytes # (1.0-4.8) k/uL Monocytes # (0-1.0) k/uL Eosinophils # (0-0.7) k/uL Basophils # (0-0.2) k/uL Hypochromasia Sodium 138 (137-145) mmol/L Potassium 3.3 L (3.5-5.1) mmol/L Chloride 107 (98-107) mmol/L Carbon Dioxide 24 (22-30) mmol/L Anion Gap 7 mmol/L BUN 9 (7-17) mg/dL Creatinine 0.52 (0.52-1.04) mg/dL Est GFR (CKD-EPI)AfAm >90 (>60 ml/min/1.73 sqM) Est GFR (CKD-EPI)NonAf >90 (>60 ml/min/1.73 sqM) Glucose 113 H (74-99) mg/dL Calcium 9.3 (8.4-10.2) mg/dL HCG, Quant 5606.6 mIU/mL Urine Color Yellow Urine Appearance Cloudy H (Clear) Urine pH 8.0 (5.0-8.0) Ur Specific [place] 1.023 (1.001-1.035) Urine Protein Trace H (Negative) Urine Glucose (UA) Negative (Negative) Urine Ketones Negative (Negative) Urine Blood Negative (Negative) Urine Nitrite Negative (Negative) Urine Bilirubin Negative (Negative) Urine Urobilinogen <2.0 (<2.0) mg/dL Ur Leukocyte Esterase Negative (Negative) Urine RBC 1 (0-5) /hpf Urine WBC 3 (0-5) /hpf Ur Squamous Epith Cells 9 H (0-4) /hpf Urine Bacteria Rare H (None) /hpf Hyaline Casts 1 (0-2) /lpf Urine Mucus Few H (None) /hpf Urine HCG, Qual Detected (Not Detectd) 07/20/19 Range/Units 17:30 WBC 11.6 H (3.8-10.6) k/uL RBC 4.22 (3.80-5.40) m/uL Hgb 10.5 L (11.4-16.0) gm/dL Hct 33.7 L (34.0-46.0) % MCV 79.9 L (80.0-100.0) fL MCH 24.8 L (25.0-35.0) pg MCHC 31.1 (31.0-37.0) g/dL RDW 14.9 (11.5-15.5) % Plt Count 253 (150-450) k/uL Neutrophils % 68 % Lymphocytes % 26 % Monocytes % 3 % Eosinophils % 2 % Basophils % 0 % Neutrophils # 7.9 H (1.3-7.7) k/uL Lymphocytes # 3.0 (1.0-4.8) k/uL Monocytes # 0.4 (0-1.0) k/uL Eosinophils # 0.2 (0-0.7) k/uL Basophils # 0.0 (0-0.2) k/uL Hypochromasia Moderate Sodium (137-145) mmol/L Potassium (3.5-5.1) mmol/L Chloride (98-107) mmol/L Carbon Dioxide (22-30) mmol/L Anion Gap mmol/L BUN (7-17) mg/dL Creatinine (0.52-1.04) mg/dL Est GFR (CKD-EPI)AfAm (>60 ml/min/1.73 sqM) Est GFR (CKD-EPI)NonAf (>60 ml/min/1.73 sqM) Glucose (74-99) mg/dL Calcium (8.4-10.2) mg/dL HCG, Quant mIU/mL Urine Color Urine Appearance (Clear) Urine pH (5.0-8.0) Ur Specific [place] (1.001-1.035) Urine Protein (Negative) Urine Glucose (UA) (Negative) Urine Ketones (Negative) Urine Blood (Negative) Urine Nitrite (Negative) Urine Bilirubin (Negative) Urine Urobilinogen (<2.0) mg/dL Ur Leukocyte Esterase (Negative) Urine RBC (0-5) /hpf Urine WBC (0-5) /hpf Ur Squamous Epith Cells (0-4) /hpf Urine Bacteria (None) /hpf Hyaline Casts (0-2) /lpf Urine Mucus (None) /hpf Urine HCG, Qual (Not Detectd) Disposition Clinical Impression: Fall, and not yet delivered in first trimester, Vaginal cramping Disposition: HOME SELF-CARE Condition: Stable Instructions (If sedation given, give patient instructions): (ED) Additional Instructions: Please return to the Emergency Department if symptoms worsen or any other concerns. Follow-up with [facility] as discussed. Take tylenol for contusion. Is patient prescribed a controlled substance at d/c from ED?: No Referrals: Vale Lawson MD [Primary Care Provider] - 1-2 days Angelina Costa DO [Doctor of Osteopathic Medicine] - 1-2 days
[2019-07-20 17:25] LABS: Appearance,Urine Cloudy (Clear); Bacteria,Urine Rare /hpf; Bilirubin,Urine Negative (Negative); Blood,Urine Negative (Negative); Color,Urine Yellow; Glucose,Urine (UA) Negative (Negative); Hyaline Casts,Urine 1 /lpf (0-2); Ketones,Urine Negative (Negative); Leukocyte Esterase,Urine Negative (Negative); Mucus,Urine Few /hpf; Nitrite,Urine Negative (Negative); Protein,Urine Trace (Negative); RBC,Urine 1 /hpf (0-5); Specific Gravity,Urine 1.023 (1.001-1.035); Squamous Epithelial Cell,Urine 9 /hpf (0-4); Urobilinogen,Urine <2.0 mg/dL (<2.0); WBC,Urine 3 /hpf (0-5)
[2019-07-20 17:47] LABS: Basophils % (A) 0 %; Eosinophils # (A) 0.2 k/uL (0-0.7); Eosinophils % (A) 2 %; HCT 33.7 % (34.0-46.0); HGB 10.5 gm/dL (11.4-16.0); Hypochromasia Moderate; Lymphocytes % (A) 26 %; MCH 24.8 pg (25.0-35.0); MCHC 31.1 g/dL (31.0-37.0); MCV 79.9 fL (80.0-100.0); Monocytes # (A) 0.4 k/uL (0-1.0); Monocytes % (A) 3 %; Neutrophils # (A) 7.9 k/uL (1.3-7.7); Neutrophils % (A) 68 %; Platelet Count 253 k/uL (150-450); RBC 4.22 m/uL (3.80-5.40); RDW 14.9 % (11.5-15.5); WBC 11.6 k/uL (3.8-10.6)
[2019-07-20 17:57] LABS: African American GFR (CKD) >90 (>60 ml/min/1.73 sqM); Anion Gap 7 mmol/L; Blood Urea Nitrogen 9 mg/dL (7-17); Calcium 9.3 mg/dL (8.4-10.2); Carbon Dioxide 24 mmol/L (22-30); Chloride 107 mmol/L (98-107); Glucose 113 mg/dL (74-99); Non-African American GFR(CKD) >90 (>60 ml/min/1.73 sqM); Potassium 3.3 mmol/L (3.5-5.1); Sodium 138 mmol/L (137-145)
[2019-07-20 18:14] LABS: HCG,Quantitative Serum 5606.6 mIU/mL
[2019-07-20 18:34] VITALS: BP 155/90; PULSE 103; TEMP 98.6
[2019-07-20] MEDS ORDERED: ONDANSETRON ODT 4 MG TAB PO STA (18:34)
--- NOTE | 2019-07-20 18:38 | US ---
EXAMINATION TYPE: Transabdominal DATE OF EXAM: 07/20/2019 6:28 PM COMPARISON: NONE CLINICAL HISTORY: new , recent fall, cramping since. cramps, no spotting EXAM PERFORMED: Transabdominal (TA) EXAM MEASUREMENTS: GESTATIONAL AGE / DATING Dates by LMP: ( 5 weeks/1 days) EDC: 09/18/2019 Dates by First Scan: No previous this is first scan Dates by Current Scan for: Unable to date by today's study MATERNAL ANATOMY Uterus: 8.1 x 5.6 x 5.0 cm Right Ovary: 3.0 x 1.3 x 1.8 cm Left Ovary: 2.9 x 2.0 x 1.6 cm Post CDS / Adnexa: no free fluid Presence of free fluid: no Presence of corpus luteal cyst: right ovarian lesion with peripheral vascular flow - 1.5 x 1.2 x 1.3 cm. Left ovarian lesion with peripheral vascular flow = 1.6 x 1.7 x 1.2 cm Presence of subchorionic bleed: no GESTATION / SURVEY MSD: 0.8 cm (Too small to determine dates) Yolk Sac (normal less than 6mm): no seen IUP: GS visualized within endometrial cavity Date of LMP: 06/14/2019, Beta HcG (if available): 5606 GS visualized within endometrial cavity. No CRL or YS visualized at this time. GS appears too small to determine dates. IMPRESSION: Evidence of early intrauterine gestational sac. Follow-up exam recommended in 14 days to confirm a li ving fetus. No adnexal mass.
== END 2019-07-20 19:17 | disposition home or self-care (01) ==
LOC: EC 16:11
DX: O9A.211 Injury, poisoning and certain other consequences of external causes complicating pregnancy, first trimester (principal); S39.91XA Unspecified injury of abdomen, initial encounter; R10.2 Pelvic and perineal pain; W10.9XXA Fall (on) (from) unspecified stairs and steps, initial encounter; Y93.01 Activity, walking, marching and hiking
CPT/HCPCS: 36415; 76801; 80048; 81001; 81025; 84702; 85025; 99284

== ENCOUNTER → 2019-08-29 | Outpatient (CLI) | payer BC ==
[2019-08-29 17:20] LABS: HCT 34.2 % (34.0-46.0); HGB 10.5 gm/dL (11.4-16.0); Hypochromasia Slight; MCH 25.1 pg (25.0-35.0); MCHC 30.8 g/dL (31.0-37.0); MCV 81.7 fL (80.0-100.0); Mean Platelet Volume 8.7; Platelet Count 249 k/uL (150-450); RBC 4.19 m/uL (3.80-5.40); RDW 14.6 % (11.5-15.5); WBC 14.5 k/uL (3.8-10.6)
[2019-08-29 18:04] LABS: Protein/Creatinine Ratio,Urine 0.153
[2019-08-30 03:20] LABS: T3, Uptake 25 % (23-37)
[2019-08-30 03:22] LABS: HIV 1 AB Non-Reactive (Non-Reactive); HIV 2 AB Non-Reactive (Non-Reactive); HIV AB P24 Non-Reactive (Non-Reactive); HIV P24 AG Non-Reactive (Non-Reactive)
[2019-08-30 03:26] LABS: African American GFR (CKD) 144.8 (60.0-200.0); Non-African American GFR(CKD) 124.9 (60.0-200.0); Uric Acid 2.8 mg/dL (2.9-7.7)
[2019-08-30 03:33] LABS: T4, Free (Free Thyroxine) 1.1 ng/dL (0.80-1.80)
[2019-08-30 04:32] LABS: Hepatitis B Surface Antigen Non-Reactive (Non-Reactive)
== END | disposition home or self-care (01) ==
LOC: LABWHC1 17:01
PROVIDERS: ATTEND Obstetrics & Gynecology
DX: Z34.81 Encounter for supervision of other normal pregnancy, first trimester (principal)
CPT/HCPCS: 36415; 82565; 82570; 82947; 83615; 84156; 84439; 84443; 84450; 84460; 84479; 84520; 84550; 85027; 86762; 86780; 86850; 86900; 86901; 87340; 87390

== ENCOUNTER 2020-02-23 12:20 | Outpatient (CLI) | payer BC, OTHER ==
[2020-02-23 12:54] VITALS: BP 137/69; PULSE 75; RESP 16; TEMP 96.7
--- NOTE | 2020-02-24 08:23 | P.MSEPDOC ---
Presenting Problems - Arrival Data Date of Arrival on Unit: 02/23/20 Time of Arrival on Unit: 12:20 Mode of Transport: Ambulatory - Complaint OB-Reason for Admission/Chief Complaint: NST Comment: Sent from [facility] for non reactive NST Medical History - Information : 2 Para: 1 Term: 1 : 0 Abortions: Spontaneous or Elective: 0 Number of Living Children: 1 - Gestational Age Gestational Age by LITO (wks/days): 36 Weeks and 2 Days - History Complications: Preeclampsia, Prior Review of Systems - Review of Systems Constitutional: No problems Breast: No problems ENT: No problems Cardiovascular: No problems Respiratory: No problems Gastrointestinal: No problems Genitourinary: No problems Musculoskeletal: No problems Neurological: No problems Skin: No problems Vital Signs - Temperature Temperature: 96.7 F Temperature Source: Temporal Artery Scan - Pulse Right Sitting Brachial Pulse Rate: 75 Pulse Assessment Method: Automatic Cuff - Respirations Respiratory Rate: 16 Oxygen Delivery Method: Room Air O2 Sat by Pulse Oximetry: 99 - Blood Pressure Right Arm Sitting Blood Pressure: 137/69 Blood Pressure Mean: 91 Blood Pressure Source: Automatic Cuff Medical Screen Scoring (Pre) - Cervical Exam Dilation: Exam Deferred Effacement: Exam Deferred Membranes: Intact - Uterine Contractions Frequency: N/A Duration: N/A Intensity: N/A - Maternal Vital Signs Maternal Temperature: N/A Maternal Blood Pressure: N/A Signs of Preeclampsia: N/A Maternal Respirations: N/A - Maternal Trauma Maternal Trauma: N/A - Assessment - Baby A Baseline FHR: 120 Heart Rate - NICHD Category: Category I (Normal) = 0 NST: Reactive Position: N/A Station: N/A - Total Score - Baby A Total Score - Baby A: 0 - Total Score - Baby B Total Score - Baby B: 0 - Total Score - Baby C Total Score - Baby C: 0 - Level of Risk - Baby A Level of Risk - Baby A: Low (0-5) - Level of Risk - Baby B Level of Risk - Baby B: Low (0-5) - Level of Risk - Baby C Level of Risk - Baby C: Low (0-5) Physician Notification (Pre) - Physician Notified Physician Notified Date: 02/23/20 Physician Notified Time: 12:45 New Order Received: Yes - Notification Comment Comment: Dr. Costa at bedside, pt sent over from office, Dr speaking c\pt, reviewed strip, states pt may be d/c home, to follow up later this week and [place] on Th as scheduled. Disposition - Disposition OB Disposition: Discharge to home, Written follow up instructions reviewed Discharge Date: 02/23/20 Discharge Time: 12:52 I agree with the RN Medical Screening Exam: Yes Risk & Benefit of care provided described in d/c instruction: Yes Diagnosis: GESTATIONAL HTN W/O SIGNIFICANT PROTEINURIA, THIRD TRIMESTER
== END 2020-02-23 12:52 | disposition home or self-care (01) ==
LOC: FBPOP 12:20
PROVIDERS: ATTEND Obstetrics & Gynecology
DX: O13.3 Gestational [pregnancy-induced] hypertension without significant proteinuria, third trimester (principal); Z3A.36 36 weeks gestation of pregnancy
CPT/HCPCS: 59025

== ENCOUNTER 2020-04-27 16:07 | Emergency (ER) | payer BC, OTHER ==
[2020-04-27 16:18] VITALS: RESP 18
[2020-04-27] MEDS ORDERED: SODIUM CHLORIDE 0.9% 1,000 ML IV STA (16:24)
--- NOTE | 2020-04-27 16:49 | ED ---
Recheck HPI - General Chief Complaint: Skin/Abscess/Foreign Body Stated Complaint: bruise on abd, lt arm tingling Time Seen by Provider: 04/27/20 16:21 Source: patient, RN notes reviewed, old records reviewed Mode of arrival: ambulatory Limitations: no limitations - History of Present Illness Initial Comments: This is a 29-year-old female she presents today for evaluation regards to multiple complaints left arm numbness and tingling left leg numbness and tingling elevated blood pressure. Patient also has abdominal pain and new bruising to her left lower quadrant of her abdomen. The pain is severe she noticed when she bumped up against her counter today. Patient is no fever cough or congestion, no fevers. Patient did recently travel to [facility]. Patient has positive medical history of 2 months ago history MD Complaint: other (Multiple complaints, elevated blood pressure left arm numbness and tingling left leg numbness and tingling bilateral lower extremity swelling, fever, left lower quadrant bruising abdominal pain) -: days(s) Returns Today for: persistent/worsening pain related to initial visit Symptoms Since Prior Visit: worsening pain, fever Associated Symptoms: fever, abdominal pain - Related Data Home Medications Medication Instructions Recorded Confirmed Pnv No.95/Ferrous Fum/Folic AC 1 tab PO DAILY 04/27/20 04/27/20 [ Multivitamin Tablet] Sertraline HCl [Zoloft] 50 mg PO DAILY 04/27/20 04/27/20 Allergies Allergy/AdvReac Type Severity Reaction Status Date / Time No Known Allergies Allergy Verified 04/27/20 18:12 Review of Systems ROS Statement: Those systems with pertinent positive or pertinent negative responses have been documented in the HPI. ROS Other: All systems not noted in ROS Statement are negative. Past Medical History Past Medical History: Hypertension Additional Past Medical History / Comment(s): anemia History of Any Multi-Drug Resistant Organisms: None Reported Past Surgical History: Section Additional Past Surgical History / Comment(s): hemmeroidectomy. colonoscopy Past Anesthesia/Blood Transfusion Reactions: No Reported Reaction Past Psychological History: No Psychological Hx Reported Smoking Status: Never smoker Past Alcohol Use History: Occasional Past Drug Use History: Marijuana - Past Family History Mother Additional Family Medical History / Comment(s): Anemic General Exam Limitations: no limitations General appearance: alert, in no apparent distress, obese Head exam: Present: atraumatic, normocephalic, normal inspection Eye exam: Present: normal appearance, PERRL, EOMI. Absent: scleral icterus, conjunctival injection, periorbital swelling ENT exam: Present: normal exam, mucous membranes moist Neck exam: Present: normal inspection. Absent: tenderness, meningismus, lymphadenopathy Respiratory exam: Present: normal lung sounds bilaterally. Absent: respiratory distress, wheezes, rales, rhonchi, stridor Cardiovascular Exam: Present: regular rate, normal rhythm, normal heart sounds. Absent: systolic murmur, diastolic murmur, rubs, gallop, clicks GI/Abdominal exam: Present: soft, tenderness (Left lower quadrant abdominal tenderness, bruising), normal bowel sounds. Absent: distended, guarding, rebound, rigid Extremities exam: Present: normal inspection, full ROM, normal capillary refill. Absent: tenderness, pedal edema, joint swelling, calf tenderness Back exam: Present: normal inspection Neurological exam: Present: alert, oriented X3, CN II-XII intact Psychiatric exam: Present: normal affect, normal mood Skin exam: Present: warm, dry, intact, normal color. Absent: rash Course Vital Signs 04/27/20 04/27/20 04/27/20 16:15 16:56 17:45 Temperature 100.0 F H Pulse Rate 67 60 71 Respiratory 18 18 18 Rate Blood Pressure 189/127 151/96 154/94 O2 Sat by Pulse 100 99 100 Oximetry - Reevaluation(s) Reevaluation #1: 04/27/20 17:08 Medical record is reviewed Reevaluation #2: 04/27/20 18:33 Patient reevaluated is in no distress here in the ER blood pressures improved with medication Reevaluation #3: 04/27/20 18:33 Patient is informed of results here in the ER, questions answered Medical Decision Making - Medical Decision Making 29 female she presents for multiple different complaints, blood pressures improved here in the ER patient is a CTA chest abdomen pelvis no acute issue and post and , abdominal wall bruising and superficial CT chest negative for PE ultrasounds of lower extremity are negative for DVT despite swelling. PATIENT CAN BE DISCHARGED HOME - Lab Data Result diagrams: 04/27/20 16:44 04/27/20 16:44 Lab Results 04/27/20 04/27/20 04/27/20 Range/Units 16:44 16:44 16:44 WBC 9.9 (3.8-10.6) k/uL RBC 4.30 (3.80-5.40) m/uL Hgb 10.5 L (11.4-16.0) gm/dL Hct 34.2 (34.0-46.0) % MCV 79.5 L (80.0-100.0) fL MCH 24.5 L (25.0-35.0) pg MCHC 30.8 L (31.0-37.0) g/dL RDW 14.4 (11.5-15.5) % Plt Count 257 (150-450) k/uL Neutrophils % 63 % Lymphocytes % 29 % Monocytes % 4 % Eosinophils % 1 % Basophils % 1 % Neutrophils # 6.3 (1.3-7.7) k/uL Lymphocytes # 2.8 (1.0-4.8) k/uL Monocytes # 0.4 (0-1.0) k/uL Eosinophils # 0.1 (0-0.7) k/uL Basophils # 0.1 (0-0.2) k/uL Hypochromasia Marked PT 10.1 (9.0-12.0) sec INR 1.0 (<1.2) APTT 25.4 (22.0-30.0) sec D-Dimer (<0.60) mg/L FEU Sodium 137 (137-145) mmol/L Potassium 3.8 (3.5-5.1) mmol/L Chloride 110 H (98-107) mmol/L Carbon Dioxide 21 L (22-30) mmol/L Anion Gap 6 mmol/L BUN 5 L (7-17) mg/dL Creatinine 0.62 (0.52-1.04) mg/dL Est GFR (CKD-EPI)AfAm >90 (>60 ml/min/1.73 sqM) Est GFR (CKD-EPI)NonAf >90 (>60 ml/min/1.73 sqM) Glucose 95 (74-99) mg/dL Calcium 9.0 (8.4-10.2) mg/dL Phosphorus 2.7 (2.5-4.5) mg/dL Magnesium 1.9 (1.6-2.3) mg/dL Total Bilirubin 0.5 (0.2-1.3) mg/dL AST 45 H (14-36) U/L ALT 39 H (4-34) U/L Alkaline Phosphatase 71 (38-126) U/L Creatine Kinase 387 H (30-135) U/L Troponin I (0.000-0.034) ng/mL NT-Pro-B Natriuret Pep pg/mL Total Protein 7.0 (6.3-8.2) g/dL Albumin 4.0 (3.5-5.0) g/dL Lipase (23-300) U/L 04/27/20 04/27/20 04/27/20 Range/Units 16:44 16:44 16:44 WBC (3.8-10.6) k/uL RBC (3.80-5.40) m/uL Hgb (11.4-16.0) gm/dL Hct (34.0-46.0) % MCV (80.0-100.0) fL MCH (25.0-35.0) pg MCHC (31.0-37.0) g/dL RDW (11.5-15.5) % Plt Count (150-450) k/uL Neutrophils % % Lymphocytes % % Monocytes % % Eosinophils % % Basophils % % Neutrophils # (1.3-7.7) k/uL Lymphocytes # (1.0-4.8) k/uL Monocytes # (0-1.0) k/uL Eosinophils # (0-0.7) k/uL Basophils # (0-0.2) k/uL Hypochromasia PT (9.0-12.0) sec INR (<1.2) APTT (22.0-30.0) sec D-Dimer 0.21 (<0.60) mg/L FEU Sodium (137-145) mmol/L Potassium (3.5-5.1) mmol/L Chloride (98-107) mmol/L Carbon Dioxide (22-30) mmol/L Anion Gap mmol/L BUN (7-17) mg/dL Creatinine (0.52-1.04) mg/dL Est GFR (CKD-EPI)AfAm (>60 ml/min/1.73 sqM) Est GFR (CKD-EPI)NonAf (>60 ml/min/1.73 sqM) Glucose (74-99) mg/dL Calcium (8.4-10.2) mg/dL Phosphorus (2.5-4.5) mg/dL Magnesium (1.6-2.3) mg/dL Total Bilirubin (0.2-1.3) mg/dL AST (14-36) U/L ALT (4-34) U/L Alkaline Phosphatase (38-126) U/L Creatine Kinase (30-135) U/L Troponin I <0.012 (0.000-0.034) ng/mL NT-Pro-B Natriuret Pep 81 pg/mL Total Protein (6.3-8.2) g/dL Albumin (3.5-5.0) g/dL Lipase (23-300) U/L 04/27/20 Range/Units 16:44 WBC (3.8-10.6) k/uL RBC (3.80-5.40) m/uL Hgb (11.4-16.0) gm/dL Hct (34.0-46.0) % MCV (80.0-100.0) fL MCH (25.0-35.0) pg MCHC (31.0-37.0) g/dL RDW (11.5-15.5) % Plt Count (150-450) k/uL Neutrophils % % Lymphocytes % % Monocytes % % Eosinophils % % Basophils % % Neutrophils # (1.3-7.7) k/uL Lymphocytes # (1.0-4.8) k/uL Monocytes # (0-1.0) k/uL Eosinophils # (0-0.7) k/uL Basophils # (0-0.2) k/uL Hypochromasia PT (9.0-12.0) sec INR (<1.2) APTT (22.0-30.0) sec D-Dimer (<0.60) mg/L FEU Sodium (137-145) mmol/L Potassium (3.5-5.1) mmol/L Chloride (98-107) mmol/L Carbon Dioxide (22-30) mmol/L Anion Gap mmol/L BUN (7-17) mg/dL Creatinine (0.52-1.04) mg/dL Est GFR (CKD-EPI)AfAm (>60 ml/min/1.73 sqM) Est GFR (CKD-EPI)NonAf (>60 ml/min/1.73 sqM) Glucose (74-99) mg/dL Calcium (8.4-10.2) mg/dL Phosphorus (2.5-4.5) mg/dL Magnesium (1.6-2.3) mg/dL Total Bilirubin (0.2-1.3) mg/dL AST (14-36) U/L ALT (4-34) U/L Alkaline Phosphatase (38-126) U/L Creatine Kinase (30-135) U/L Troponin I (0.000-0.034) ng/mL NT-Pro-B Natriuret Pep pg/mL Total Protein (6.3-8.2) g/dL Albumin (3.5-5.0) g/dL Lipase 45 (23-300) U/L - EKG Data -: EKG Interpreted by Me (EKG shows sinus rhythm 63 OK 136 QRS 88 QTc 4) - Radiology Data Radiology results: report reviewed (CT chest negative for PE CT chest abdomen pelvis negative for significant findings related to bruising, ultrasound lower [place] is negative for DVT), image reviewed Disposition Clinical Impression: Fever, Hypertension, Abdominal wall hematoma Disposition: HOME SELF-CARE Condition: Good Instructions (If sedation given, give patient instructions): Hematoma (ED), Contusion in Adults (ED) Is patient prescribed a controlled substance at d/c from ED?: No Referrals: Vale Lawson MD [Primary Care Provider] - 1-2 days
[2020-04-27 16:56] LABS: Basophils # (A) 0.1 k/uL (0-0.2); Basophils % (A) 1 %; Eosinophils # (A) 0.1 k/uL (0-0.7); Eosinophils % (A) 1 %; HCT 34.2 % (34.0-46.0); HGB 10.5 gm/dL (11.4-16.0); Hypochromasia Marked; Lymphocytes # (A) 2.8 k/uL (1.0-4.8); Lymphocytes % (A) 29 %; MCH 24.5 pg (25.0-35.0); MCHC 30.8 g/dL (31.0-37.0); MCV 79.5 fL (80.0-100.0); Mean Platelet Volume 8.3; Monocytes # (A) 0.4 k/uL (0-1.0); Monocytes % (A) 4 %; Neutrophils # (A) 6.3 k/uL (1.3-7.7); Neutrophils % (A) 63 %; Platelet Count 257 k/uL (150-450); RDW 14.4 % (11.5-15.5); WBC 9.9 k/uL (3.8-10.6)
[2020-04-27 17:08] LABS: ALT 39 U/L (4-34); AST 45 U/L (14-36); African American GFR (CKD) >90 (>60 ml/min/1.73 sqM); Alkaline Phosphatase 71 U/L (38-126); Anion Gap 6 mmol/L; Blood Urea Nitrogen 5 mg/dL (7-17); Carbon Dioxide 21 mmol/L (22-30); Chloride 110 mmol/L (98-107); Creatine Kinase 387 U/L (30-135); Glucose 95 mg/dL (74-99); Magnesium 1.9 mg/dL (1.6-2.3); Non-African American GFR(CKD) >90 (>60 ml/min/1.73 sqM); Phosphorus 2.7 mg/dL (2.5-4.5); Potassium 3.8 mmol/L (3.5-5.1); Sodium 137 mmol/L (137-145); Total Bilirubin 0.5 mg/dL (0.2-1.3)
[2020-04-27 17:10] LABS: Partial Thromboplastin Time 25.4 sec (22.0-30.0); Prothrombin Time 10.1 sec (9.0-12.0)
--- NOTE | 2020-04-27 17:51 | CT ---
EXAMINATION TYPE: CT brain wo con DATE OF EXAM: 04/27/2020 COMPARISON: None available. HISTORY: Left arm and leg numbness CT DLP: 981.8 mGycm. Automated Exposure Control for Dose Reduction was Utilized. TECHNIQUE: CT scan of the head is performed without contrast. FINDINGS: There is no acute intracranial hemorrhage, mass effect, or midline shift identified. The ventricles and sulci are within normal limits in size. The globes are intact and the visualized sin uses are clear. IMPRESSION: No acute intracranial hemorrhage, mass effect, or midline shift is seen.
--- NOTE | 2020-04-27 17:55 | CT ---
EXAMINATION TYPE: CT angio chest DATE OF EXAM: 04/27/2020 5:25 PM COMPARISON: None available. HISTORY: Bruise to left abdomen CT DLP: 435.4 mGycm Automated exposure control for dose reduction was used. CONTRAST: CTA scan of the thorax is performed with IV Contrast, patient injected with 100 mL of Isovue 370, pul monary embolism protocol. MIP images are created and reviewed. FINDINGS: LUNGS: There is minimal atelectasis. Otherwise the lungs are grossly clear, there is no concerning pa renchymal mass or nodule identified. There is no pleural effusion or pneumothorax seen. The trache obronchial tree is patent. MEDIASTINUM: There is satisfactory enhancement of the pulmonary artery and its branches, there is no CT evidence for pulmonary embolism. There are no greater than 1 cm hilar or mediastinal lymph nodes. No pericardial effusion is seen. OTHER: No additional significant abnormality is seen. IMPRESSION: NO ACUTE PULMONARY EMBOLUS OR OTHER CARDIOPULMONARY ABNORMALITY.
--- NOTE | 2020-04-27 17:57 | CT ---
EXAMINATION TYPE: CT abdomen pelvis w con DATE OF EXAM: 04/27/2020 COMPARISON: None available. HISTORY: Bruise to left side abdomen CT DLP: 1362.1 mGycm Automated exposure control for dose reduction was used. TECHNIQUE: Helical acquisition of images was performed from the lung bases through the pelvis. CONTRAST: Performed without Oral Contrast and with IV Contrast, patient injected with 100-from cta chest mL of Isovue 370. FINDINGS: LUNG BASES: No significant abnormality is appreciated. LIVER/GB: No significant abnormality is appreciated. PANCREAS: No significant abnormality is seen. SPLEEN: No significant abnormality is seen. ADRENALS: No significant abnormality is seen. KIDNEYS: No significant abnormality is seen. FREE AIR: No free air is visualized. RETROPERITONEAL ADENOPATHY: None visualized REPRODUCTIVE ORGANS: No significant abnormality is seen URINARY BLADDER: No significant abnormality is seen. PELVIC ADENOPATHY: None visualized. OSSEOUS STRUCTURES: No significant abnormality is seen. Moderate L5-S1 spondylosis. BOWEL: No significant abnormality is seen. OTHER: None. IMPRESSION: NO ACUTE ABNORMALITY. Moderate L5-S1 spondylosis.
[2020-04-27] MEDS ORDERED: LABETALOL 5 MG/ML VIAL MDV IVP STA (18:32)
--- NOTE | 2020-04-27 18:36 | US ---
EXAMINATION TYPE: US venous doppler duplex LE DATE OF EXAM: 04/27/2020 6:28 PM COMPARISON: [facility] CLINICAL HISTORY: pain. Pain x 2 hours. No hx of DVT. Patient does not take blood thinners. SIDE PERFORMED: Bilateral TECHNIQUE: The lower extremity deep venous system is examined utilizing real time linear array sonog michael with graded compression, doppler sonography and color-flow sonography. VESSELS IMAGED: External Iliac Vein (EIV) Common Femoral Vein Deep Femoral Vein Greater Saphenous Vein * Femoral Vein Popliteal Vein Small Saphenous Vein * Proximal Calf Veins (* superficial vessels) Right Leg: No evidence of DVT in veins imaged at this time from prox calf veins to EIV. Left Leg: Incidental left inguinal lymph node measurin.8 x 1.2 x 0.6 cm., Likely reactive No art dence of DVT in veins imaged at this time from prox calf veins to EIV. IMPRESSION: No evidence of DVT in the bilateral lower extremities.
[2020-04-27 19:39] LABS: Appearance,Urine Clear (Clear); Bilirubin,Urine Negative (Negative); Blood,Urine Negative (Negative); Color,Urine Light Yellow; Glucose,Urine (UA) Negative (Negative); Ketones,Urine Negative (Negative); Leukocyte Esterase,Urine Negative (Negative); Nitrite,Urine Negative (Negative); Protein,Urine Negative (Negative); Specific Gravity,Urine >1.050 (1.001-1.035); Urobilinogen,Urine <2.0 mg/dL (<2.0)
[2020-04-27 20:23] VITALS: BP 153/101; PULSE 74; TEMP 98.3
== END 2020-04-27 20:23 | disposition home or self-care (01) ==
LOC: EC 16:07
DX: S30.1XXA Contusion of abdominal wall, initial encounter (principal); I10 Essential (primary) hypertension; R50.9 Fever, unspecified; D64.9 Anemia, unspecified; R20.0 Anesthesia of skin; R20.2 Paresthesia of skin; Z79.899 Other long term (current) drug therapy; X58.XXXA Exposure to other specified factors, initial encounter
CPT/HCPCS: 36415; 93005; 85379; 83880; 80053; 82550; 83690; 83735; 84100; 84484; 85025; 85610; 85730; 81003; 93970; 70450; 71275; 74177; 99285; 96360; 96361 ×2; Q9967

== ENCOUNTER 2021-01-12 | Emergency (ER) | payer BC, OTHER | END 2021-01-12 10:27 | disposition home or self-care (01) | CPT/HCPCS: 36415; 76801; 80048; 81001; 84702; 85025; 86850; 86900; 86901; 96361; 96374; 99284 ==

== ENCOUNTER → 2021-02-17 | Outpatient (CLI) | payer OTHER ==
--- NOTE | 2021-02-17 19:54 | US ---
EXAMINATION TYPE: Transabdominal DATE OF EXAM: 02/17/2021 4:26 PM COMPARISON: NONE CLINICAL HISTORY: Z36 Confirm dates. Confirm dates EXAM PERFORMED: Transabdominal (TA) EXAM MEASUREMENTS: GESTATIONAL AGE / DATING Physician Established: Not yet established Dates by LMP: (13 weeks/1 days) EDC: 08/24/2021 Dates by First Scan: No previous this is first scan Dates by Current Scan for: (13 weeks/1 days) EDC: 08/24/2021 MATERNAL ANATOMY Uterus: 13.4 x 7.0 x 10.9 cm Right Ovary: 3.1 x 2.0 x 1.9 cm Left Ovary: 2.2 x 1.8 x 2.0 cm Post CDS / Adnexa: no Presence of free fluid: no Presence of corpus luteal cyst: no Presence of perigestational fluid: Trace GESTATION / SURVEY CRL: 6.88 cm (13 weeks/1 days) Heart Rate: 160 bpm Beta HcG (if available): Not available at this time IMPRESSION: 1. Single intrauterine with a gestational age of 13 weeks 1 day and an embryologic heart ra te of 160 bpm. 2. Limited scan, imaging findings should be correlated with clinical history and physical examination . Further evaluation, follow-up and anatomical scan should be performed based on clinical recommendat ions by cargo service agent.
== END | disposition home or self-care (01) ==
LOC: RADUSWWP 16:13
PROVIDERS: ATTEND Obstetrics & Gynecology
DX: Z36.89 Encounter for other specified antenatal screening (principal); Z3A.13 13 weeks gestation of pregnancy
CPT/HCPCS: 76801

== ENCOUNTER 2021-04-19 06:14 | Outpatient (CLI) | payer OTHER ==
[2021-04-19 07:00] LABS: Amorphous Sediment,Urine Few /hpf; Appearance,Urine Cloudy (Clear); Bacteria,Urine Occasional /hpf; Bilirubin,Urine Negative (Negative); Blood,Urine Negative (Negative); Color,Urine Yellow; Glucose,Urine (UA) Negative (Negative); Hyaline Casts,Urine 1 /lpf (0-2); Ketones,Urine Negative (Negative); Leukocyte Esterase,Urine Negative (Negative); Mucus,Urine Moderate /hpf; Nitrite,Urine Negative (Negative); Protein,Urine Trace (Negative); RBC,Urine 1 /hpf (0-5); Squamous Epithelial Cell,Urine 11 /hpf (0-4); Urobilinogen,Urine <2.0 mg/dL (<2.0); WBC,Urine 4 /hpf (0-5)
--- NOTE | 2021-04-19 07:55 | US ---
EXAMINATION TYPE: US OB >= 14 wk fetus DATE OF EXAM: 04/19/2021 COMPARISON: US's CLINICAL HISTORY: abd pain TECHNIQUE: Transabdominal (TA) GESTATIONAL AGE / DATING Physician Established: (21 weeks/6 days) EDC: 08/24/2021 Dates by LMP: (21 weeks/6 days) EDC: 08/24/2021 Dates by First Scan: (21 weeks/5 days) EDC: 08/25/2021 Dates by Current Scan: (22 weeks/6 days) EDC: 08/17/2021 SURVEY IUP: Single PLACENTA: Posterior PREVIA: No Previa JAMES: 19.6 cm Normal CERVICAL LENGTH (transabdominal: norm > 3.0cm): 4.9 cm BIOMETRY PRESENTATION: Vertex BPD: 5.3 cm 22 weeks / 1 days HC: 19.8 cm 22 weeks / 0 days AC: 18.2 cm 23 weeks / 1 days FL: 4.3 cm 23 weeks / 1 days ESTIMATED WEIGHT IN GRAMS: 579 grams ESTIMATED WEIGHT IN LBS/OZ: 1 lbs. 4 oz. WEIGHT PERCENTAGE BASED ON ESTABLISHED DATES: 97% HC/AC: 1.09 Normal FL/AC: 24% Normal HEART RATE: 140 bpm RHYTHM: Normal Survey is limited IMPRESSION: Single viable intrauterine corresponding to ultrasound age 22 weeks 6 days with estimated d ate of delivery August 17, 2021
[2021-04-19 08:55] VITALS: BP 144/80; PULSE 78; RESP 18; TEMP 97.9
--- NOTE | 2021-05-11 17:02 | P.MSEPDOC ---
Presenting Problems - Arrival Data Date of Arrival on Unit: 04/19/21 Time of Arrival on Unit: 06:14 Mode of Transport: Ambulatory - Complaint OB-Reason for Admission/Chief Complaint: Pain Comment: abd and lower back pain rating of 7/10 Medical History - Information : 3 Para: 2 Term: 2 : 0 Abortions: Spontaneous or Elective: 0 Number of Living Children: 2 - Gestational Age Gestational Age by LITO (wks/days): 21 Weeks and 6 Days - History Complications: Prior Review of Systems - Review of Systems Constitutional: No problems Breast: No problems ENT: No problems Cardiovascular: No problems Respiratory: No problems Gastrointestinal: No problems Genitourinary: Urgency, Increased frequency Musculoskeletal: No problems Neurological: No problems Skin: No problems Vital Signs - Temperature Temperature: 97.9 F Temperature Source: Temporal Artery Scan - Pulse Right Brachial Pulse Rate: 78 Pulse Assessment Method: Automatic Cuff - Respirations Respiratory Rate: 18 Oxygen Delivery Method: Room Air O2 Sat by Pulse Oximetry: 99 - Blood Pressure Right Arm Blood Pressure: 144/80 Blood Pressure Mean: 101 Blood Pressure Source: Automatic Cuff Medical Screen Scoring - Cervical Exam Dilation (cm): 0 - Assessment - Baby A Baseline FHR: 140 Physician Notification - Physician Notified Physician Notified Date: 04/19/21 Physician Notified Time: 07:13 Physician: Steven Bronson Order Received: Yes - Notification Comment Comment: initial report to Dr Bronson. Dr carlisle given report at 0805. pt here for abd pain, received U/S and cervical exam is cl,th and high per Dr Carlisle. Pt dc'd home with instructions. Maternal Triage Index - Maternal Triage Index Presenting for scheduled procedure w/no complaint: No - Stat/Priority 1 Stat Priority 1: No - Urgent/Priority 2 Urgent Priority 2: No - Prompt/Priority 3 Prompt Priority 3: No - Non-Urgent/Priority 4 Non-Urgent Priority 4: No - Scheduled/Requesting Priority 5 Scheduled/Requesting Priority 5: Yes Criteria Met for Priority 5: abd cramping at 22wks Disposition - Disposition OB Disposition: Triage, Discharge to home, Written follow up instructions reviewed Discharge Date: 04/19/21 Discharge Time: 08:33 I agree with the RN Medical Screening Exam: Yes Case reviewed; plan agreed upon as documented in EMR&OBIX.: Yes Diagnosis: RELATED CONDITIONS, UNSPECIFIED, SECOND TRIMESTER
== END 2021-04-19 08:33 | disposition home or self-care (01) ==
LOC: FBPOP 06:14
PROVIDERS: ATTEND Obstetrics & Gynecology
DX: O26.892 Other specified pregnancy related conditions, second trimester (principal); R10.9 Unspecified abdominal pain; M54.50 Low back pain, unspecified; Z3A.21 21 weeks gestation of pregnancy
CPT/HCPCS: 81001; 76805; G0463; 99213

== ENCOUNTER 2021-07-22 22:53 | Outpatient (CLI) | payer OTHER ==
[2021-07-22 23:57] LABS: Appearance,Urine Clear (Clear); Bilirubin,Urine Negative (Negative); Blood,Urine Negative (Negative); Color,Urine Light Yellow; Glucose,Urine (UA) Negative (Negative); Ketones,Urine Negative (Negative); Leukocyte Esterase,Urine Negative (Negative); Nitrite,Urine Negative (Negative); Protein,Urine Negative (Negative); Specific Gravity,Urine 1.021 (1.001-1.035); Urobilinogen,Urine <2.0 mg/dL (<2.0)
[2021-07-23 00:08] LABS: Creatinine,Urine Random 102.4 mg/dL; Protein/Creatinine Ratio,Urine 0.068
[2021-07-23 00:50] LABS: Basophils # (A) 0.1 k/uL (0-0.2); Basophils % (A) 0 %; Eosinophils # (A) 0.2 k/uL (0-0.7); Eosinophils % (A) 1 %; HCT 30.9 % (34.0-46.0); HGB 9.4 gm/dL (11.4-16.0); Hypochromasia Moderate; Lymphocytes % (A) 20 %; MCH 24.7 pg (25.0-35.0); MCHC 30.5 g/dL (31.0-37.0); MCV 80.8 fL (80.0-100.0); Mean Platelet Volume 9.8; Monocytes # (A) 0.8 k/uL (0-1.0); Monocytes % (A) 5 %; Neutrophils % (A) 73 %; Platelet Count 206 k/uL (150-450); RBC 3.83 m/uL (3.80-5.40); RDW 13.7 % (11.5-15.5); WBC 15.2 k/uL (3.8-10.6)
[2021-07-23 01:00] LABS: ALT 11 U/L (4-34); AST 18 U/L (14-36); African American GFR (CKD) >90 (>60 ml/min/1.73 sqM); Blood Urea Nitrogen 11 mg/dL (7-17); LDH 433 U/L (313-618); Magnesium 1.6 mg/dL (1.6-2.3); Non-African American GFR(CKD) >90 (>60 ml/min/1.73 sqM); Uric Acid 4.7 mg/dL (3.7-7.4)
[2021-07-23 01:02] LABS: INR 0.9 (<1.2); Partial Thromboplastin Time 22.3 sec (22.0-30.0); Prothrombin Time 9.5 sec (9.0-12.0)
[2021-07-23 01:27] VITALS: BP 157/85; PULSE 90; RESP 16; TEMP 97
--- NOTE | 2021-07-23 07:36 | P.MSEPDOC ---
Presenting Problems - Arrival Data Date of Arrival on Unit: 07/22/21 Time of Arrival on Unit: 22:53 Mode of Transport: Ambulatory - Complaint OB-Reason for Admission/Chief Complaint: Pain Comment: Pt states back pain since 2029, pain 01/15 Medical History - Information : 3 Para: 2 Term: 2 : 0 Abortions: Spontaneous or Elective: 0 Number of Living Children: 2 - Gestational Age Gestational Age by LITO (wks/days): 35 Weeks and 3 Days - History Complications: Prior Review of Systems - Review of Systems Constitutional: No problems Breast: No problems ENT: No problems Cardiovascular: No problems Respiratory: No problems Gastrointestinal: No problems Genitourinary: No problems Musculoskeletal: No problems Neurological: No problems Skin: No problems Vital Signs - Temperature Temperature: 97.0 F Temperature Source: Temporal Artery Scan - Pulse Right Brachial Pulse Rate: 90 Pulse Assessment Method: Automatic Cuff - Respirations Respiratory Rate: 16 Oxygen Delivery Method: Room Air O2 Sat by Pulse Oximetry: 96 - Blood Pressure Right Arm Blood Pressure: 157/85 Blood Pressure Mean: 109 Blood Pressure Source: Automatic Cuff Medical Screen Scoring - Cervical Exam Dilation (cm): 1 Effacement (%): 0 Station: -3 Membranes: Intact - Uterine Contractions Frequency From (mins): 0 Frequency To (mins): 0 Duration From (seconds): 0 Duration To (seconds): 0 Intensity: Mild Resting: Soft to palpation - Assessment - Baby A Baseline FHR: 135 Heart Rate - NICHD Category: Category I (Normal) NST: Reactive Physician Notification - Physician Notified Physician Notified Date: 07/23/21 Physician Notified Time: 23:30 Physician: Clive Calle New Order Received: Yes - Notification Comment Comment: Reported bps upon admission, orders for PIH labs. PIH labs reported at 0106, pt to follow up with Dr. Costa at 0900 on Sunday morning. Maternal Triage Index - Maternal Triage Index Presenting for scheduled procedure w/no complaint: No - Stat/Priority 1 Stat Priority 1: No - Urgent/Priority 2 Urgent Priority 2: Yes Provider Notified: Clive Calle Provider Notified Time: 23:30 Criteria Met for Priority 2: BP 157/85, 158/97, 145/79, 137/72 Disposition - Disposition OB Disposition: Discharge to home Discharge Date: 07/23/21 Discharge Time: 01:08 I agree with the RN Medical Screening Exam: Yes Case reviewed; plan agreed upon as documented in EMR&OBIX.: Yes Diagnosis: GESTATIONAL HTN W/O SIGNIFICANT PROTEINURIA, THIRD TRIMESTER (This patient is a 30-year-old multigravida patient 35-3/7 weeks gestation who presents to labor and delivery for concerns of back pain and possible labor. Patient's found not to be in labor and had a reactive nonstress test however her initial blood pressure on admission was elevated 157/85. Patient's history is such that in the past 2 previous pregnancies she's had gestational hypertension and was ultimately delivered for a diagnosis of preeclampsia at term. Her other 2 pregnancies she was on antihypertensives throughout the however this she has not required them. I did do blood work and there is no evidence of preeclampsia. Serial blood pressures with monitoring showed them to come down to 120s to 140s over 60s to 70s. It is evident the patient does have gestational hypertension but no evidence of preeclampsia at this time. There is no evidence of maternal compromise. Plan is to discharge home with follow-up with Dr. Costa in 48 hours as scheduled. Patient will be continued to be watched closely and most likely need to be delivered at 37 weeks. Patient was given strict instructions for indications to return.)
== END 2021-07-23 01:08 | disposition home or self-care (01) ==
LOC: FBPOP 22:53
PROVIDERS: ATTEND Obstetrics & Gynecology
DX: O13.3 Gestational [pregnancy-induced] hypertension without significant proteinuria, third trimester (principal); O46.93 Antepartum hemorrhage, unspecified, third trimester; Z3A.35 35 weeks gestation of pregnancy
CPT/HCPCS: 59025; 82570; 84156; 82565; 83615; 83735; 84450; 84460; 84520; 84550; 85025; 85384; 85610; 85730; 81003; G0463; 99215

== ENCOUNTER 2021-07-28 15:49 | Inpatient (IN) | payer OTHER ==
[2021-07-28 16:39] LABS: Basophils % (A) 0 %; Eosinophils # (A) 0.1 k/uL (0-0.7); Eosinophils % (A) 1 %; HCT 31.3 % (34.0-46.0); HGB 9.7 gm/dL (11.4-16.0); Hypochromasia Marked; Lymphocytes # (A) 2.2 k/uL (1.0-4.8); Lymphocytes % (A) 18 %; MCH 24.7 pg (25.0-35.0); MCHC 30.9 g/dL (31.0-37.0); MCV 79.8 fL (80.0-100.0); Mean Platelet Volume 10.5; Monocytes # (A) 0.6 k/uL (0-1.0); Monocytes % (A) 5 %; Neutrophils # (A) 9.1 k/uL (1.3-7.7); Neutrophils % (A) 73 %; Platelet Count 214 k/uL (150-450); RBC 3.92 m/uL (3.80-5.40); RDW 13.7 % (11.5-15.5); WBC 12.4 k/uL (3.8-10.6)
[2021-07-28 16:49] LABS: ALT 9 U/L (4-34); AST 20 U/L (14-36); African American GFR (CKD) >90 (>60 ml/min/1.73 sqM); Blood Urea Nitrogen 9 mg/dL (7-17); LDH 579 U/L (313-618); Non-African American GFR(CKD) >90 (>60 ml/min/1.73 sqM)
[2021-07-28 17:21] LABS: Appearance,Urine Clear (Clear); Bilirubin,Urine Negative (Negative); Blood,Urine Negative (Negative); Color,Urine Yellow; Glucose,Urine (UA) Negative (Negative); Ketones,Urine Negative (Negative); Leukocyte Esterase,Urine Negative (Negative); Nitrite,Urine Negative (Negative); PH, Urine 6.5 (5.0-8.0); Protein,Urine Trace (Negative); Urobilinogen,Urine <2.0 mg/dL (<2.0)
[2021-07-28 17:42] LABS: Protein/Creatinine Ratio,Urine 0.109
[2021-07-28] MEDS ORDERED: LABETALOL 200 MG TAB PO STA (18:02)
[2021-07-28] MEDS: BETAMET ACET-BETAMETH SOD PHOS 6 MG/ML MDV IM SCH (18:13)
[2021-07-29] MEDS: ACETAMINOPHEN TAB 325 MG TAB PO PRN ×2 (00:07→06:49)
[2021-07-29] MEDS: LABETALOL 200 MG TAB PO SCH ×2 (05:57→19:08)
[2021-07-29] MEDS: BETAMET ACET-BETAMETH SOD PHOS 6 MG/ML MDV IM SCH (07:45)
[2021-07-29] MEDS ORDERED: CITRIC ACID-SODIUM CITRATE 15 ML CUP PO ONE (10:41)
[2021-07-29] MEDS ORDERED: LACTATED RINGERS 1,000 ML IV ONE (10:41)
[2021-07-29] MEDS ORDERED: MORPHINE SULFATE (PF) 0.3 MG/0.3 ML SYR ONE (11:57)
[2021-07-29] MEDS ORDERED: OXYTOCIN 30 UNITS/500 ML NS BAG IV ONE (11:57)
[2021-07-29] MEDS ORDERED: NALBUPHINE 10 MG/ML (1 ML AMP) ONE (11:57)
[2021-07-29] MEDS ORDERED: ONDANSETRON 4 MG/2 ML VIAL ONE (11:57)
[2021-07-29] MEDS ORDERED: PHENYLEPHRINE-0.9% NACL SYG 1,000 MCG/10 ML SYRINGE ONE (11:57)
[2021-07-29] MEDS ORDERED: KETOROLAC 15 MG/ML 1 ML VIAL ONE (11:57)
[2021-07-29] MEDS ORDERED: ONDANSETRON 4 MG/2 ML VIAL IVP PRN (12:38)
[2021-07-29] MEDS ORDERED: diphenhydrAMINE 50 MG/ML 1 ML VIAL IVP PRN ×2 (12:38)
[2021-07-29] MEDS ORDERED: diphenhydrAMINE 25 MG CAP PO PRN (12:38)
[2021-07-29] MEDS ORDERED: METOCLOPRAMIDE 5 MG/ML 2 ML VIAL IVP PRN (12:38)
[2021-07-29] MEDS ORDERED: NALOXONE 0.4 MG/ML 1 ML VIAL IV PRN ×2 (12:38→13:55)
[2021-07-29] MEDS ORDERED: diphenhydrAMINE 50 MG CAP PO PRN (12:38)
[2021-07-29] MEDS ORDERED: LANOLIN CREAM 5 GM TUBE TOPICAL PRN (12:38)
[2021-07-29] MEDS ORDERED: SIMETHICONE 80 MG CHEWABLE PO PRN (12:38)
[2021-07-29] MEDS ORDERED: ZOLPIDEM 5 MG TAB PO PRN (12:38)
[2021-07-29] MEDS ORDERED: OXYTOCIN 30 UNITS/500 ML NS 30 UNIT in SALINE 1 500ML.BAG IV SCH (12:45)
--- NOTE | 2021-07-29 12:47 | P.OP ---
Date of Procedure: 07/29/21 Preoperative Diagnosis: 1. 36 weeks 1 day 2. uncontrolled gestational hypertension 3. previous Postoperative Diagnosis: 1. 36 weeks 1 day 2. uncontrolled gestational hypertension 3. previous Procedure(s) Performed: repeat low transverse Anesthesia: spinal Surgeon: Angelina Costa Entry Level Mechanical Engineer #1: Clive Calle Estimated Blood Loss (ml): 500 IV fluids (ml): 600 Urine output (ml): 50 Pathology: none sent Condition: stable Disposition: floor Operative Findings: viable female 7,9; weight 6#4oz. Description of Procedure: Patient was taken to the operating room where spinal anesthesia was found be adequate. She was prepped and draped in normal sterile fashion in dorsal supine position with a leftward tilt. Pfannenstiel skin incision was made the scalpel and carried through to the underlying layer of fascia with the scalpel. Fascia was incised in midline and carried bilaterally with the Smyth scissors. The superior aspect of the fascial incision was grasped with [place] clamps elevated and the underlying rectus muscles dissected off with the Smyth's. Attention was then turned to inferior aspect of same incision which in a similar fashion was grasped tented up and the underlying rectus muscles dissected off with the Smyth's. The rectus muscles were the midline and the peritoneum was identified tented up and entered sharply with the scalpel. The incision was extended superiorly and inferiorly with good visualization of the bladder. The bladder blade was inserted and the vesicouterine peritoneum was incised the Metzenbaums then carried bilaterally and bladder flap created digitally. A low transverse incision was then made on the uterus with the scalpel. This was carried bilaterally and digital manner. 's head delivered atraumatically, nose and mouth bulb suctioned, cord clamped and cut, handed off to waiting nurses. Apgars 7,9, weight 6 lbs. 4 oz. Placenta delivered manually, intact with three-vessel cord. The uterus is exteriorized and cleared of all clots and debris. The uterine incision was closed with 0 Vicryl in a running locked fashion. Second layer of the same sutures used in imbricating fashion to obtain excellent hemostasis. Both ovaries and tubes appeared normal. The uterus was placed back into the abdomen. The peritoneum was reapproximated using 2-0 Vicryl in a running fashion. The muscles were reapproximated using 2- 0 Vicryl in interrupted fashion. The fascia was reapproximated using 0 Vicryl in a running fashion. The subcutaneous tissues closed with 3-0 Vicryl running fashion. The skin was closed allyson. Patient tolerated the procedure well, sponge and instrument counts were correct times 2 and she was taken to the recovery room in stable condition.
[2021-07-29] MEDS ORDERED: MORPHINE SULFATE 2 MG/ML SYRINGE IVP PRN (13:55)
[2021-07-29] MEDS: ACETAMINOPHEN TAB 500 MG TAB PO SCH ×2 (19:08→22:23)
[2021-07-29] MEDS: KETOROLAC 30 MG/ML 1 ML VIAL IVP SCH (19:10)
[2021-07-29] MEDS: SENNOSIDES-DOCUSATE SODIUM 1 EACH TAB PO SCH (19:56)
[2021-07-29] MEDS: LACTATED RINGERS 1,000 ML IV SCH ×2 (22:32)
[2021-07-30] MEDS: KETOROLAC 30 MG/ML 1 ML VIAL IVP SCH (00:55)
[2021-07-30] MEDS: LACTATED RINGERS 1,000 ML IV SCH ×2 (05:00→05:02)
[2021-07-30] MEDS: ACETAMINOPHEN TAB 500 MG TAB PO SCH ×2 (05:01→10:38)
[2021-07-30] MEDS: SENNOSIDES-DOCUSATE SODIUM 1 EACH TAB PO SCH ×2 (07:56→19:25)
[2021-07-30] MEDS: LABETALOL 200 MG TAB PO SCH ×2 (07:56→17:53)
[2021-07-30 08:06] LABS: Basophils % (A) 0 %; Eosinophils % (A) 0 %; HCT 29.5 % (34.0-46.0); HGB 8.8 gm/dL (11.4-16.0); Hypochromasia Marked; Lymphocytes # (A) 1.8 k/uL (1.0-4.8); Lymphocytes % (A) 10 %; MCV 80.2 fL (80.0-100.0); Mean Platelet Volume 10.8; Monocytes # (A) 0.7 k/uL (0-1.0); Monocytes % (A) 4 %; Neutrophils # (A) 15.2 k/uL (1.3-7.7); Neutrophils % (A) 85 %; Platelet Count 211 k/uL (150-450); RBC 3.68 m/uL (3.80-5.40); RDW 14.1 % (11.5-15.5); WBC 17.9 k/uL (3.8-10.6)
--- NOTE | 2021-07-30 10:51 | P.HPOB ---
History of Present Illness H&P Date: 07/29/21 Chief Complaint: gestational hypertension 30-year-old presents at 36 weeks and 1 day to my office with elevated blood pressures up to 170/90. Pre-eclamptic Labs were normal. She does have an occasional sparkle in her vision but no headache. heart tones 140 with moderate variability and reactive. Her blood pressure came down with labetalol 200 mg but it is labile and at home and will likely go up again. She's been given 2 doses of Celestone 12 hours apart and will have a section today. Review of Systems All systems: negative Constitutional: Denies chills, Denies fever Eyes: denies blurred vision, denies pain Ears, nose, mouth and throat: Denies headache, Denies sore throat Cardiovascular: Denies chest pain, Denies shortness of breath Respiratory: Denies cough Gastrointestinal: Denies abdominal pain, Denies diarrhea, Denies nausea, Denies vomiting Genitourinary: Denies dysuria, Denies hematuria Musculoskeletal: Denies myalgias Integumentary: Denies pruritus, Denies rash Neurological: Denies numbness, Denies weakness Psychiatric: Denies anxiety, Denies depression Endocrine: Denies fatigue, Denies weight change Past Medical History Past Medical History: Hypertension Additional Past Medical History / Comment(s): anemia History of Any Multi-Drug Resistant Organisms: None Reported Past Surgical History: Section Additional Past Surgical History / Comment(s): hemmeroidectomy. colonoscopy Past Anesthesia/Blood Transfusion Reactions: No Reported Reaction Past Psychological History: PTSD Smoking Status: Never smoker Past Alcohol Use History: None Reported, Occasional Past Drug Use History: Marijuana Additional Drug Use History / Comment(s): intermittently during - Past Family History Mother Additional Family Medical History / Comment(s): Anemic Father Family Medical History: Diabetes Mellitus, Myocardial Infarction ([place]) Medications and Allergies Home Medications Medication Instructions Recorded Confirmed Type Pnv No.95/Ferrous Fum/Folic AC 1 tab PO DAILY 04/27/20 07/28/21 History [ Multivitamin Tablet] Aspirin 1 tab PO DAILY 04/19/21 07/28/21 History Allergies Allergy/AdvReac Type Severity Reaction Status Date / Time No Known Allergies Allergy Verified 07/28/21 16:00 Exam Osteopathic Statement: *. No significant issues noted on an osteopathic structural exam other than those noted in the History and Physical/Consult. Vital Signs Temp Pulse Resp BP Pulse Ox 07/30/21 08:00 98.0 F 81 16 161/92 07/30/21 04:00 98.1 F 72 16 134/82 98 07/30/21 00:00 98.1 F 70 16 144/91 98 07/29/21 19:53 98.1 F 81 16 124/70 99 07/29/21 18:55 100 07/29/21 16:00 98.0 F 65 16 115/60 99 07/29/21 15:10 98.2 F 64 16 111/57 07/29/21 14:55 57 L 18 136/58 100 07/29/21 14:25 52 L 16 148/68 07/29/21 13:55 16 99 07/29/21 13:50 56 L 16 136/65 07/29/21 13:35 54 L 16 118/54 07/29/21 13:20 64 16 124/59 07/29/21 13:05 64 16 121/58 07/29/21 12:50 80 16 128/61 99 07/29/21 12:35 97.6 F 81 16 124/58 97 Intake and Output 07/29/21 07/30/21 07/30/21 22:59 06:59 14:59 Output Total 800 250 Balance -800 -250 Output: Urine 800 250 Other: # Voids 2 Heart: Regular rate and rhythm Lungs: Clear to auscultation bilaterally Abdomen: Soft, nontender Extremities: Negative Homans sign Results Result Diagrams: 07/30/21 07:38 07/28/21 16:20 Abnormal Lab Results - Last 24 Hours (Table) 07/30/21 Range/Units 07:38 WBC 17.9 H (3.8-10.6) k/uL RBC 3.68 L (3.80-5.40) m/uL Hgb 8.8 L (11.4-16.0) gm/dL Hct 29.5 L (34.0-46.0) % MCH 24.0 L (25.0-35.0) pg MCHC 30.0 L (31.0-37.0) g/dL Neutrophils # 15.2 H (1.3-7.7) k/uL Assessment and Plan (1) Gestational hypertension Current Visit: No Status: Resolved Code(s): O13.9 - GESTATIONAL HTN W/O SIG NIFICANT PROTEINURIA, UNSP TRIMESTER SNOMED Code(s): 44085711 (2) Previous section Current Visit: Yes Status: Acute Code(s): Z98.891 - HISTORY OF UTERINE SCAR FROM PREVIOUS SURGERY SNOMED Code(s): 464051050 Plan: 1. Admit to family place and continue labetalol 200 mg twice daily 2. Prep for repeat low transverse
--- NOTE | 2021-07-30 10:52 | P.PNOBGPC ---
Subjective - Subjective Principal diagnosis: Status post repeat low transverse . POD #1 Interval history: Patient seen and examined. Denies nausea, vomiting, chest pain, shortness of breath or any calf pain. Patient reports: Reports appetite normal, Reports voiding normally, Reports pain well controlled, Reports ambulating normally : doing well Objective - Vital Signs Latest vital signs: Vital Signs Temp Pulse Resp BP Pulse Ox 07/30/21 08:00 98.0 F 81 16 161/92 07/30/21 04:00 98.1 F 72 16 134/82 98 07/30/21 00:00 98.1 F 70 16 144/91 98 07/29/21 19:53 98.1 F 81 16 124/70 99 07/29/21 18:55 100 07/29/21 16:00 98.0 F 65 16 115/60 99 07/29/21 15:10 98.2 F 64 16 111/57 07/29/21 14:55 57 L 18 136/58 100 07/29/21 14:25 52 L 16 148/68 07/29/21 13:55 16 99 07/29/21 13:50 56 L 16 136/65 07/29/21 13:35 54 L 16 118/54 07/29/21 13:20 64 16 124/59 07/29/21 13:05 64 16 121/58 07/29/21 12:50 80 16 128/61 99 07/29/21 12:35 97.6 F 81 16 124/58 97 Intake and Output 07/29/21 07/30/21 07/30/21 22:59 06:59 14:59 Output Total 800 250 Balance -800 -250 Output: Urine 800 250 Other: # Voids 2 - Exam Lungs: bilateral: normal Chest: Normal S1, Normal S2 Extremities: Present: normal Abdomen: Present: normal appearance, soft. Absent: distention, tenderness Incision: Present: normal, dry, intact Uterus: Present: normal, firm - Labs Labs: Abnormal Lab Results - Last 24 Hours (Table) 07/30/21 Range/Units 07:38 WBC 17.9 H (3.8-10.6) k/uL RBC 3.68 L (3.80-5.40) m/uL Hgb 8.8 L (11.4-16.0) gm/dL Hct 29.5 L (34.0-46.0) % MCH 24.0 L (25.0-35.0) pg MCHC 30.0 L (31.0-37.0) g/dL Neutrophils # 15.2 H (1.3-7.7) k/uL Assessment and Plan (1) Gestational hypertension Current Visit: No Status: Acute Code(s): O13.9 - GESTATIONAL HTN W/O SIGNIFICANT PROTEINURIA, UNSP TRIMESTER SNOMED Code(s): 31804139 (2) Previous section Current Visit: Yes Status: Resolved Code(s): Z98.891 - HISTORY OF UTERINE SCAR FROM PREVIOUS SURGERY SNOMED Code(s): 401542364 (3) Status post repeat low transverse section Current Visit: No Status: Acute Code(s): Z98.891 - HISTORY OF UTERINE SCAR FROM PREVIOUS SURGERY SNOMED Code(s): 807914787 Plan: 1. Continue postoperative care 2. Her blood pressures are maintained on labetalol 200 mg twice daily
--- NOTE | 2021-07-30 15:39 | P.PN ---
Progress Note - Text Progress Note Date: 07/30/21 Postoperative day 1 status post section under spinal anesthesia, and i ntrathecal morphine given for postoperative analgesia, patient doing well, there is no anesthesia related complications, Patient had no headache, vital signs stable , Assessment and plan= postop day 1 status post , doing well there is no anesthesia related complication.
[2021-07-30] MEDS: IBUPROFEN 600 MG TAB PO SCH (19:25)
[2021-07-31] MEDS: ACETAMINOPHEN TAB 500 MG TAB PO SCH (00:16)
[2021-07-31] MEDS: IBUPROFEN 600 MG TAB PO SCH (06:31)
--- NOTE | 2021-07-31 07:22 | P.DS ---
Providers Date of admission: 07/28/21 18:19 Expected date of discharge: 07/31/21 Attending physician: Angelina Costa Primary care physician: Stated None - Discharge Diagnosis(es) (1) Gestational hypertension Current Visit: No Status: Acute (2) Previous section Current Visit: Yes Status: Resolved (3) Status post repeat low transverse section Current Visit: No Status: Acute Hospital Course: Patient presented with uncontrolled gestational hypertension. She was started on labetalol 200 mg twice daily. She was given 2 doses of Celestone 12 hours apart and delivered by repeat section. Patient and baby are doing very well today. Denies nausea, vomiting, chest pain, shortness of breath or any calf pain. She is tolerating her diet and passing flatus. Incision is clean, dry, intact. Patient will be discharged home post operative day #2 in stable condition to follow-up with me in one week. Plan - Discharge Summary New Discharge Prescriptions: New Ibuprofen [Motrin] 600 mg PO Q6HR #30 tab Labetalol [Trandate] 200 mg PO Q12H #60 tab oxyCODONE HCL [OxyIR] 10 mg PO Q4HR PRN #12 tab PRN Reason: Pain Scale 7 - 10 No Action Pnv No.95/Ferrous Fum/Folic AC [ Multivitamin Tablet] 1 tab PO DAILY Aspirin 1 tab PO DAILY Discharge Medication List Pnv No.95/Ferrous Fum/Folic AC [ Multivitamin Tablet] 1 tab PO DAILY 04/27/20 [History] Aspirin 1 tab PO DAILY 04/19/21 [History] Ibuprofen [Motrin] 600 mg PO Q6HR #30 tab 07/31/21 [Rx] Labetalol [Trandate] 200 mg PO Q12H #60 tab 07/31/21 [Rx] oxyCODONE HCL [OxyIR] 10 mg PO Q4HR PRN #12 tab 07/31/21 [Rx] Follow up Appointment(s)/Referral(s): Angelina Costa DO [Doctor of Osteopathic Medicine] - 09/07/21 11:15 am (Post Op 08-08-2021 at 1:30p.m.) Discharge Disposition: HOME SELF-CARE
[2021-07-31] MEDS: LABETALOL 200 MG TAB PO SCH (09:43)
[2021-07-31 11:32] VITALS: BP 136/78; PULSE 82; RESP 18; TEMP 98.1
== END 2021-07-31 11:10 | disposition home or self-care (01) | DRG 788 ==
LOC: FBPOP 15:49 → 4FBP 18:19
PROVIDERS: ADMIT Obstetrics & Gynecology; ATTEND Obstetrics & Gynecology
PROC: 10D00Z1 Extraction of Products of Conception, Low, Open Approach (ICD-10-PCS; principal; 2021-07-29 12:00)
DX: O34.211 Maternal care for low transverse scar from previous cesarean delivery (principal); O13.4 Gestational [pregnancy-induced] hypertension without significant proteinuria, complicating childbirth; F43.10 Post-traumatic stress disorder, unspecified; O99.344 Other mental disorders complicating childbirth; O99.02 Anemia complicating childbirth; D64.9 Anemia, unspecified; Z37.0 Single live birth; Z3A.36 36 weeks gestation of pregnancy; Z79.82 Long term (current) use of aspirin; Z82.49 Family history of ischemic heart disease and other diseases of the circulatory system; Z83.3 Family history of diabetes mellitus; Z87.19 Personal history of other diseases of the digestive system
CPT/HCPCS: 59025; 81003; 82565; 82570; 83615; 84156; 84450; 84460; 84520; 84550; 85025; 86850; 86900; 86901

== ENCOUNTER 2022-12-26 07:42 | Emergency (ER) | payer OTHER ==
[2022-12-26 07:57] VITALS: TEMP 98.6
[2022-12-26] MEDS ORDERED: KETOROLAC 15 MG/ML 1 ML VIAL IVP STA (08:06)
[2022-12-26] MEDS ORDERED: SODIUM CHLORIDE 0.9% 1,000 ML IV STA (08:06)
--- NOTE | 2022-12-26 08:12 | ED ---
Abdominal Pain HPI - General Chief Complaint: Abdominal Pain Stated Complaint: Abd pain Time Seen by Provider: 12/26/22 07:58 Source: patient, RN notes reviewed Mode of arrival: ambulatory Limitations: no limitations - History of Present Illness Initial Comments: This is a 32-year-old female who presents to the emergency department for abdominal pain, nausea, and constipation. States that yesterday she felt like she was straining and could not produce a bowel movement. Whenever she tried to strain, she had pain shooting down into the abdomen. She is now having pain in all areas of the abdomen as well as nausea. She was able to have small bowel movements, but nothing significant. She continues to have severe abdominal pain. Denies any history of similar symptoms in the past. Denies any fevers, chills, sore throat, cough, dyspnea, chest pain, palpitations, diarrhea, back pain, or headaches. MD Complaint: abdominal pain Onset/Timin -: days(s) Location: diffuse - Related Data Home Medications Medication Instructions Recorded Confirmed No Known Home Medications 12/26/22 12/26/22 Allergies Allergy/AdvReac Type Severity Reaction Status Date / Time No Known Allergies Allergy Verified 12/26/22 12:26 Review of Systems ROS Statement: Those systems with pertinent positive or pertinent negative responses have been documented in the HPI. ROS Other: All systems not noted in ROS Statement are negative. Past Medical History Past Medical History: Hypertension Additional Past Medical History / Comment(s): anemia History of Any Multi-Drug Resistant Organisms: None Reported Past Surgical History: Section Additional Past Surgical History / Comment(s): hemmeroidectomy. colonoscopy Past Anesthesia/Blood Transfusion Reactions: No Reported Reaction Past Psychological History: PTSD Smoking Status: Never smoker Past Alcohol Use History: None Reported, Occasional Past Drug Use History: Marijuana - Past Family History Mother Additional Family Medical History / Comment(s): Anemic Father Family Medical History: Diabetes Mellitus, Myocardial Infarction ([place]) General Exam Limitations: no limitations General appearance: alert, in no apparent distress Head exam: Present: atraumatic, normocephalic, normal inspection Respiratory exam: Present: normal lung sounds bilaterally. Absent: respiratory distress, wheezes, rales, rhonchi, stridor Cardiovascular Exam: Present: regular rate, normal rhythm, normal heart sounds. Absent: systolic murmur, diastolic murmur, rubs, gallop, clicks GI/Abdominal exam: Present: soft, tenderness (diffuse), normal bowel sounds. Absent: distended, guarding, rebound, rigid Neurological exam: Present: alert, oriented X3, CN II-XII intact Psychiatric exam: Present: normal affect, normal mood Skin exam: Present: warm, dry, intact, normal color. Absent: rash Course Vital Signs 12/26/22 12/26/22 07:54 12:54 Temperature 98.6 F Pulse Rate 90 87 Respiratory 18 20 Rate Blood Pressure 173/100 147/103 O2 Sat by Pulse 98 99 Oximetry Medical Decision Making - Medical Decision Making This is a 32-year-old female who presents to the emergency department for abdominal pain. Was pt. sent in by a medical professional or institution? @ -No Did you speak to anyone other than the patient for history? @ -No Did you review nursing and triage notes? @ -Yes, and I agree, it is accurate with regards to the patient's symptoms. Were old charts reviewed? @ -No Differential Diagnosis? @ -Differential Abdominal Pain Women: Appendicitis, Cholecystitis, diverticulosis, ischemic bowel, pancreatitis, hepatitis, UTI, gastroenteritis, AAA, incarcerated hernia, bowel obstruction, constipation, inflammatory bowel, hepatitis, peptic ulcer disease, splenic infarction, perforated viscus, vulvitis, ovarian torsion, PID, kidney stone, placenta abruption, this is not meant to be an all-inclusive list EKG interpreted by me (3pts min.)? @ -Not obtained X-rays interpreted by me (1pt min.)? @ -Not obtained CT interpreted by me (1pt min.)? @ -Computed tomography scan of the abdomen and pelvis obtained. My interpretation identifies no evidence of bowel wall thickening or free air. U/S interpreted by me (1pt. min.)? @ -Not obtained What testing was considered but not performed? (CT, X-rays, U/S, labs)? Why? @ -None What meds were considered but not given? Why? @ -None Did you discuss the management of the patient with other professionals? @ -No Did you reconcile home meds? @ -No Was smoking cessation discussed for >3mins.? @ -No Was critical care preformed (if so, how long)? @ -No Were there social determinants of health that impacted care today? How? (Homelessness, low income, unemployed, alcoholism, drug addiction, transportation, low edu. Level, literacy, decrease access to med. care, alf, rehab)? @ -No Was there de-escalation of care discussed even if they declined? (Discuss DNR or withdrawal of care, Hospice)? @ -No What co-morbidities impacted this encounter? (DM, HTN, Smoking, COPD, CAD, Cancer, CVA, Hep., AIDS, mental health diagnosis, sleep apnea, morbid obesity)? @ -Morbid obesity Was patient admitted / discharged? @ -Discharged. Lab work obtained revealing leukocytosis and was otherwise nonactionable. Hemoglobin is stable when compared with prior values and consistent with the patient's history of anemia. She was given IV fluids and Toradol. Computed tomography scan of the abdomen and pelvis obtained revealing no acute findings. Patient felt like she was very constipated and requested to try an enema. Advised that we can try this, however her CT was not suggestive o f severe stool burden. Patient was given a milk molasses enema per her request. She was able to produce a fairly large bowel movement and had notable relief in pain afterwards. Advised she can continue stool softener such as MiraLAX and she is instructed to increase her fluid and fiber intake. She'll otherwise continue with supportive care. Undiagnosed new problem with uncertain prognosis? @ -None Drug Therapy requiring intensive monitoring for toxicity (Heparin, Nitro, Insulin, Cardizem)? @ -None Were any procedures done? @ -None Diagnosis/symptom? @ -Abdominal pain Acute, or Chronic, or Acute on Chronic? @ -Acute Uncomplicated (without systemic symptoms) or Complicated (systemic symptoms)? @ -Uncomplicated Side effects of treatment? @ -None Exacerbation, Progression, or Severe Exacerbation] @ -Not applicable Poses a threat to life or bodily function? @ -No Return precautions reviewed in depth, the patient is instructed to return to the emergency department with any new, worsening, or concerning symptoms. Patient verbalized understanding. This case was discussed in detail with the attending ED physician, Dr. Caren young. Presentation, findings, and treatment plan discussed in detail as well. - Lab Data Result diagrams: 12/26/22 08:49 12/26/22 08:49 Lab Results 12/26/22 12/26/22 12/26/22 Range/Units 08:49 08:49 08:49 WBC 11.2 H (3.8-10.6) k/uL RBC 4.55 (3.80-5.40) m/uL Hgb 9.4 L (11.4-16.0) gm/dL Hct 32.2 L (34.0-46.0) % MCV 70.6 L (80.0-100.0) fL MCH 20.7 L (25.0-35.0) pg MCHC 29.3 L (31.0-37.0) g/dL RDW 16.9 H (11.5-15.5) % Plt Count 280 (150-450) k/uL MPV 9.3 Neutrophils % 72 % Lymphocytes % 21 % Monocytes % 5 % Eosinophils % 1 % Basophils % 0 % Neutrophils # 8.1 H (1.3-7.7) k/uL Lymphocytes # 2.3 (1.0-4.8) k/uL Monocytes # 0.6 (0-1.0) k/uL Eosinophils # 0.1 (0-0.7) k/uL Basophils # 0.0 (0-0.2) k/uL Hypochromasia Marked Anisocytosis Slight Microcytosis Moderate Sodium 139 (137-145) mmol/L Potassium 4.4 (3.5-5.1) mmol/L Chloride 109 H (98-107) mmol/L Carbon Dioxide 21 L (22-30) mmol/L Anion Gap 9 mmol/L BUN 10 (7-17) mg/dL Creatinine 0.62 (0.52-1.04) mg/dL Est GFR (CKD-EPI)AfAm >90 (>60 ml/min/1.73 sqM) Est GFR (CKD-EPI)NonAf >90 (>60 ml/min/1.73 sqM) Glucose 106 H (74-99) mg/dL Plasma Lactic Acid Will 1.0 (0.7-2.0) mmol/L Calcium 9.1 (8.4-10.2) mg/dL Total Bilirubin 0.5 (0.2-1.3) mg/dL AST 29 (14-36) U/L ALT 21 (4-34) U/L Alkaline Phosphatase 76 (38-126) U/L Total Protein 7.5 (6.3-8.2) g/dL Albumin 4.3 (3.5-5.0) g/dL Amylase 45 (30-110) U/L Lipase 51 (23-300) U/L Urine Color Urine Appearance (Clear) Urine pH (5.0-8.0) Ur Specific [place] (1.001-1.035) Urine Protein (Negative) Urine Glucose (UA) (Negative) Urine Ketones (Negative) Urine Blood (Negative) Urine Nitrite (Negative) Urine Bilirubin (Negative) Urine Urobilinogen (<2.0) mg/dL Ur Leukocyte Esterase (Negative) Urine HCG, Qual (Not Detectd) 12/26/22 12/26/22 Range/Units 09:00 09:00 WBC (3.8-10.6) k/uL RBC (3.80-5.40) m/uL Hgb (11.4-16.0) gm/dL Hct (34.0-46.0) % MCV (80.0-100.0) fL MCH (25.0-35.0) pg MCHC (31.0-37.0) g/dL RDW (11.5-15.5) % Plt Count (150-450) k/uL MPV Neutrophils % % Lymphocytes % % Monocytes % % Eosinophils % % Basophils % % Neutrophils # (1.3-7.7) k/uL Lymphocytes # (1.0-4.8) k/uL Monocytes # (0-1.0) k/uL Eosinophils # (0-0.7) k/uL Basophils # (0-0.2) k/uL Hypochromasia Anisocytosis Microcytosis Sodium (137-145) mmol/L Potassium (3.5-5.1) mmol/L Chloride (98-107) mmol/L Carbon Dioxide (22-30) mmol/L Anion Gap mmol/L BUN (7-17) mg/dL Creatinine (0.52-1.04) mg/dL Est GFR (CKD-EPI)AfAm (>60 ml/min/1.73 sqM) Est GFR (CKD-EPI)NonAf (>60 ml/min/1.73 sqM) Glucose (74-99) mg/dL Plasma Lactic Acid Will (0.7-2.0) mmol/L Calcium (8.4-10.2) mg/dL Total Bilirubin (0.2-1.3) mg/dL AST (14-36) U/L ALT (4-34) U/L Alkaline Phosphatase (38-126) U/L Total Protein (6.3-8.2) g/dL Albumin (3.5-5.0) g/dL Amylase (30-110) U/L Lipase (23-300) U/L Urine Color Colorless Urine Appearance Clear (Clear) Urine pH 6.0 (5.0-8.0) Ur Specific [place] 1.002 (1.001-1.035) Urine Protein Negative (Negative) Urine Glucose (UA) Negative (Negative) Urine Ketones Negative (Negative) Urine Blood Negative (Negative) Urine Nitrite Negative (Negative) Urine Bilirubin Negative (Negative) Urine Urobilinogen <2.0 (<2.0) mg/dL Ur Leukocyte Esterase Negative (Negative) Urine HCG, Qual Not Detected (Not Detectd) - Radiology Data Radiology results: report reviewed, image reviewed Disposition Clinical Impression: Abdominal pain Disposition: HOME SELF-CARE Instructions (If sedation given, give patient instructions): Abdominal Pain (ED) Additional Instructions: Return to the emergency department with any new, worsening, or concerning symptoms. Alternate with ibuprofen and Tylenol as needed for pain relief. Increase your fluid and fiber intake. Follow up with your primary care provider in 1-2 days. Is patient prescribed a controlled substance at d/c from ED?: No Referrals: Mode Davila MD [Primary Care Provider] - 1-2 days
[2022-12-26 08:56] LABS: Anisocytosis Slight; Basophils % (A) 0 %; Eosinophils # (A) 0.1 k/uL (0-0.7); Eosinophils % (A) 1 %; HCT 32.2 % (34.0-46.0); HGB 9.4 gm/dL (11.4-16.0); Hypochromasia Marked; Lymphocytes # (A) 2.3 k/uL (1.0-4.8); Lymphocytes % (A) 21 %; MCH 20.7 pg (25.0-35.0); MCHC 29.3 g/dL (31.0-37.0); MCV 70.6 fL (80.0-100.0); Mean Platelet Volume 9.3; Microcytosis Moderate; Monocytes # (A) 0.6 k/uL (0-1.0); Monocytes % (A) 5 %; Neutrophils # (A) 8.1 k/uL (1.3-7.7); Neutrophils % (A) 72 %; Platelet Count 280 k/uL (150-450); RBC 4.55 m/uL (3.80-5.40); RDW 16.9 % (11.5-15.5); WBC 11.2 k/uL (3.8-10.6)
[2022-12-26 09:10] LABS: Appearance,Urine Clear (Clear); Bilirubin,Urine Negative (Negative); Blood,Urine Negative (Negative); Color,Urine Colorless; Glucose,Urine (UA) Negative (Negative); Ketones,Urine Negative (Negative); Leukocyte Esterase,Urine Negative (Negative); Nitrite,Urine Negative (Negative); Protein,Urine Negative (Negative); Specific Gravity,Urine 1.002 (1.001-1.035); Urobilinogen,Urine <2.0 mg/dL (<2.0)
[2022-12-26 09:13] LABS: ALT 21 U/L (4-34); AST 29 U/L (14-36); African American GFR (CKD) >90 (>60 ml/min/1.73 sqM); Albumin 4.3 g/dL (3.5-5.0); Alkaline Phosphatase 76 U/L (38-126); Amylase 45 U/L (30-110); Anion Gap 9 mmol/L; Blood Urea Nitrogen 10 mg/dL (7-17); Calcium 9.1 mg/dL (8.4-10.2); Carbon Dioxide 21 mmol/L (22-30); Chloride 109 mmol/L (98-107); Glucose 106 mg/dL (74-99); Lipase 51 U/L (23-300); Non-African American GFR(CKD) >90 (>60 ml/min/1.73 sqM); Potassium 4.4 mmol/L (3.5-5.1); Sodium 139 mmol/L (137-145); Total Bilirubin 0.5 mg/dL (0.2-1.3); Total Protein 7.5 g/dL (6.3-8.2)
--- NOTE | 2022-12-26 09:56 | CT ---
EXAMINATION TYPE: CT abdomen pelvis w con CT DLP: 1913.6 mGycm, Automated exposure control for dose reduction was used. DATE OF EXAM: 12/26/2022 9:50 AM COMPARISON: CT abdomen pelvis most recent from 04/27/2020 CLINICAL INDICATION:Female, 32 years old with history of Abdominal pain, acute, nonlocalized; vomitin g, constipation TECHNIQUE: Axial CT of the abdomen and pelvis. Sagittal and coronal reformats were created on a [employer] workstation. Contrast used:100 mL of Isovue 300 with IV Contrast, (none if empty) Oral contrast used: without Oral Contrast (none if empty) FINDINGS: LOWER CHEST: Unremarkable ABDOMEN LIVER: Unremarkable GALLBLADDER AND BILE DUCTS: Unremarkable. PANCREAS: Unremarkable. SPLEEN: Unremarkable. ADRENAL GLANDS: Unremarkable. KIDNEYS AND URETERS: No evidence of hydronephrosis or renal calculus. The ureters are unremarkable. PELVIS BLADDER: Unremarkable REPRODUCTIVE: Right ovarian cyst measuring 2.7 cm. The appendix is normal. ABDOMEN & PELVIS STOMACH AND BOWEL: No evidence of bowel obstruction. PERITONEUM/RETROPERITONEUM: No evidence of pneumoperitoneum or free fluid. VASCULATURE: No evidence of aortic aneurysm. MUSCULOSKELETAL: No acute osseous abnormalities LYMPH NODES: No gross evidence for lymphadenopathy. SOFT TISSUE/ABDOMINAL WALL: Unremarkable IMPRESSION: 1. No evidence for acute abdominal process to explain the patient's pain. 2. Right 2.7 cm ovarian cyst. 3. The appendix is normal. No obstructive uropathy.
[2022-12-26] MEDS ORDERED: ONDANSETRON 4 MG ODT STARTER PACK 2 TAB BTL PO STA (12:15)
[2022-12-26] MEDS ORDERED: traMADol 50 MG STARTER PACK 3 TAB BTL PO STA (12:15)
[2022-12-26] MEDS ORDERED: IBUPROFEN 600 MG STARTER PACK 4 TAB BTL PO STA (12:15)
[2022-12-26 12:57] VITALS: BP 147/103; PULSE 87; RESP 20
== END 2022-12-26 12:57 | disposition home or self-care (01) ==
LOC: EC 07:42
DX: N83.201 Unspecified ovarian cyst, right side (principal); I10 Essential (primary) hypertension; F12.90 Cannabis use, unspecified, uncomplicated
CPT/HCPCS: 36415; 80053; 82150; 83605; 83690; 85025; 81003; 81025; 74177; 99284; 96374; 96361; J1885; S0119; Q9967

== ENCOUNTER 2023-08-14 18:02 | Emergency (ER) | payer OTHER ==
[2023-08-14 18:15] VITALS: TEMP 98.3
--- NOTE | 2023-08-14 19:31 | ED ---
General Adult HPI - General Chief complaint: Extremity Injury, Lower Stated complaint: abd pain feet pain Time Seen by Provider: 08/14/23 18:55 Source: patient, RN notes reviewed Mode of arrival: ambulatory Limitations: no limitations - History of Present Illness Initial comments: 32-year-old female presents to the emergency department for evaluation of left foot pain and right leg pain behind the knee and in the calf. She states that these have both been going on for around 2 days. Patient does report a significant history of left lower extremity swelling which she has been worked up for by her primary care provider. She denies any injury to either the leg. Denies recent fever, chest pain, shortness of breath. - Related Data Home Medications Medication Instructions Recorded Confirmed No Known Home Medications 12/26/22 12/26/22 Allergies Allergy/AdvReac Type Severity Reaction Status Date / Time No Known Allergies Allergy Verified 08/14/23 18:12 Review of Systems ROS Statement: Those systems with pertinent positive or pertinent negative responses have been documented in the HPI. ROS Other: All systems not noted in ROS Statement are negative. Past Medical History Past Medical History: Hypertension Additional Past Medical History / Comment(s): anemia, HTN during History of Any Multi-Drug Resistant Organisms: None Reported Past Surgical History: Section Additional Past Surgical History / Comment(s): hemmeroidectomy. colonoscopy Past Anesthesia/Blood Transfusion Reactions: No Reported Reaction Past Psychological History: PTSD Smoking Status: Current every day smoker Past Alcohol Use History: Occasional Past Drug Use History: Marijuana - Past Family History Mother Additional Family Medical History / Comment(s): Anemic Father Family Medical History: Diabetes Mellitus, Myocardial Infarction ([place]) General Exam Limitations: no limitations Course Vital Signs 08/14/23 08/14/23 18:08 21:03 Temperature 98.3 F Pulse Rate 86 79 Respiratory 16 18 Rate Blood Pressure 146/94 146/91 O2 Sat by Pulse 100 98 Oximetry Medical Decision Making - Medical Decision Making Was pt. sent in by a medical professional or institution (REBEKAH Lao, UNIONMELT OPERATOR, urgent care, hospital, or longterm...) When possible be specific @ -No Did you speak to anyone other than the patient for history (EMS, parent, family, police, friend...)? What history was obtained from this source @ -No Did you review nursing and triage notes (agree or disagree)? Why? @ -I reviewed and agree with nursing and triage notes Were old charts reviewed (outside hosp., previous admission, EMS record, old EKG, old radiological studies, urgent care reports/EKG's, longterm records)? Report findings @ -No old charts were reviewed Differential Diagnosis (chest pain, altered mental status, abdominal pain women, abdominal pain men, vaginal bleeding, weakness, fever, dyspnea, syncope, headache, dizziness, GI bleed, back pain, seizure, CVA, palpatations, mental health, musculoskeletal)? @ -Differential Musculoskeletal Muscular strain, contusion, ligament sprain, fracture, arthritis, septic a rthritis, bursitis, cellulitis, muscle spasm, nerve compression, DVT, arterial occlusion, herpes zoster, electrolyte abnormality, tumor.... This is not meant to be in all inclusive list EKG interpreted by me (3pts min.). @ -None X-rays interpreted by me (1pt min.). @ -X-ray of the left foot shows no acute fracture, soft tissue swelling CT interpreted by me (1pt min.). @ -None done U/S interpreted by me (1pt. min.). @ -Ultrasound of the right lower extremity shows no acute DVT What testing was considered but not performed or refused? (CT, X-rays, U/S, labs)? Why? @ -None What meds were considered but not given or refused? Why? @ -Pain medication considered but patient declined Did you discuss the management of the patient with other professionals (professionals i.e. , PA, UNIONMELT OPERATOR, lab, RT, psych nurse, social insurance adviser, publicist, teacher, commissary officer, family service caseworker)? Give summary @ -No Was smoking cessation discussed for >3mins.? @ -No Was critical care preformed (if so, how long)? @ -No Were there social determinants of health that impacted care today? How? (Homelessness, low income, unemployed, alcoholism, drug addiction, transportation, low edu. Level, literacy, decrease access to med. care, penitentiary, rehab)? @ -No Was there de-escalation of care discussed even if they declined (Discuss DNR or withdrawal of care, Hospice)? DNR status @ -No What co-morbidities impacted this encounter? (DM, HTN, Smoking, COPD, CAD, Cancer, CVA, ARF, Chemo, Hep., AIDS, mental health diagnosis, sleep apnea, morbid obesity)? @ -None Was patient admitted / discharged? Hospital course, mention meds given and route, prescriptions, significant lab abnormalities, going to OR and other pertinent info. @ -Discharge. Patient presented to the emergency department for evaluation of left foot pain and right leg pain. Symptoms started around 2 days ago. Denies any trauma. X-ray of the left foot shows no acute fracture. Ultrasound of the right lower extremity shows no acute DVT. Discussed findings with patient. Advised alternating Tylenol and Motrin as needed for discomfort. Patient understanding agreeable with discharge plan. Patient stable at time of discharge. Case discussed with Dr. Wing Undiagnosed new problem with uncertain prognosis? @ -No Drug Therapy requiring intensive monitoring for toxicity (Heparin, Nitro, Insulin, Cardizem)? @ -No Were any procedures done? @ -No Diagnosis/symptom? @ -leg pain Acute, or Chronic, or Acute on Chronic? @ -acute Uncomplicated (without systemic symptoms) or Complicated (systemic symptoms)? @ -uncomplicated Side effects of treatment? @ -No Exacerbation, Progression, or Severe Exacerbation? @ -No Poses a threat to life or bodily function? How? (Chest pain, [place], [place], pneumonia, PE, COPD, DKA, ARF, appy, cholecystitis, CVA, Diverticulitis, Homicidal, Suicidal, threat to staff... and all critical care pts) @ -No Disposition Clinical Impression: Left foot pain, Right leg pain Disposition: HOME SELF-CARE Condition: Stable Instructions (If sedation given, give patient instructions): Swollen Joint (ED) Additional Instructions: Alternate Tylenol and Motrin as needed for pain. Please follow up with your primary care provider. Return to the emergency department for new or worsening symptoms. Is patient prescribed a controlled substance at d/c from ED?: No Referrals: Mode Davila MD [Primary Care Provider] - 1-2 days
--- NOTE | 2023-08-14 20:10 | XR ---
EXAMINATION TYPE: XR foot complete LT DATE OF EXAM: 08/14/2023 7:55 PM CLINICAL INDICATION:Female, 32 years old with history of pain; [facility] COMPARISON: Foot radiograph 03/31/2019 TECHNIQUE: The left foot was examined in the AP, oblique, and lateral projections. FINDINGS: No evidence of any acute osseous pathology. Mild soft tissue swelling surrounding the ankle and foot . Joints are preserved. IMPRESSION: 1. No evidence of acute fracture. 2. Mild soft tissue swelling surrounding the foot and ankle.
--- NOTE | 2023-08-14 20:19 | US ---
EXAMINATION TYPE: US venous doppler duplex LE RT DATE OF EXAM: 08/14/2023 7:32 PM COMPARISON: 04/27/20 CLINICAL INDICATION: Female, 32 years old with history of pain; Posterior right leg pain x 1 day. No hx of DVT. Not on blood thinners SIDE PERFORMED: Right TECHNIQUE: The lower extremity deep venous system is examined utilizing real time linear array sonog michael with graded compression, doppler sonography and color-flow sonography. VESSELS IMAGED: Common Femoral Vein Deep Femoral Vein Greater Saphenous Vein * Femoral Vein Popliteal Vein Small Saphenous Vein * Proximal Calf Veins (* superficial vessels) Right Leg: No evidence for DVT Grayscale, color doppler, spectral doppler imaging performed of the deep veins of the lower extremiti es. There is normal flow, compressibility, vascular waveforms. IMPRESSION: No evidence of deep venous thrombosis.
[2023-08-14 21:22] VITALS: BP 146/91; PULSE 79; RESP 18
== END 2023-08-14 21:04 | disposition home or self-care (01) ==
LOC: EC 18:02
DX: M79.672 Pain in left foot (principal); I10 Essential (primary) hypertension; F17.200 Nicotine dependence, unspecified, uncomplicated; F12.90 Cannabis use, unspecified, uncomplicated
CPT/HCPCS: 99284

== ENCOUNTER 2024-03-23 16:33 | Emergency (ER) | payer OTHER ==
[2024-03-23 16:40] VITALS: TEMP 98.7
--- NOTE | 2024-03-23 16:41 | ED ---
Chest Pain HPI - General Source: patient, RN notes reviewed Mode of arrival: ambulatory Limitations: no limitations <Katia Hopkins - Last Filed: 03/23/24 16:40> <Kevin Ware - Last Filed: 03/24/24 07:07> - General Chief Complaint: Chest Pain Stated Complaint: Hypertension, chest pain, back pain Time Seen by Provider: 03/23/24 16:40 - History of Present Illness Initial Comments: Quick note: 33-year-old female presented to ER with a chief complaint of chest discomfort. Patient reports for the past couple days she has noticed a mid back discomfort. She describes the chest discomfort as sharp in nature and 7 out of 10. Has not tried anything [id number]. States he took her blood pressure outpatient and it was 170s over 110s. No history of hypertension besides gestational. Patient also reports bilateral upper extremity numbness. History of anxiety. (Katia Hopkins) Agree with above (Kevin Ware) - Related Data Previous Rx's Medication Instructions Recorded Potassium Chloride ER [K-Dur 20] 20 meq PO BID #10 tab 03/23/24 Allergies Allergy/AdvReac Type Severity Reaction Status Date / Time No Known Allergies Allergy Verified 03/23/24 18:39 Review of Systems ROS Other: All systems not noted in ROS Statement are negative. <Katia Hopkins - Last Filed: 03/23/24 16:40> ROS Other: All systems not noted in ROS Statement are negative. Constitutional: Denies: fever, chills, weakness Eyes: Denies: vision change Respiratory: Denies: cough, dyspnea Cardiovascular: Reports: chest pain. Denies: palpitations, orthopnea, edema, syncope Gastrointestinal: Denies: abdominal pain, nausea, vomiting, diarrhea, constipation Genitourinary: Reports: abnormal menses (Patient has heavy periods and has been passing moderate size clots). Denies: dysuria, frequency Musculoskeletal: Reports: back pain Skin: Denies: rash Neurological: Denies: headache, weakness, numbness Hematological/Lymphatic: Denies: easy bleeding <Kevin Ware - Last Filed: 03/24/24 07:07> ROS Statement: Those systems with pertinent positive or pertinent negative responses have been documented in the HPI. EKG Findings - EKG Results: EKG: interpreted by ERMD, sinus rhythm (Rate 86 bpm), normal axis, normal QRS - Blocks, Ledbetter, Hypertrophy, ST Abn: Repolarization changes or abnormalities: nonspecific abnormality, ST segment, and/or T wave <ChazKevin - Last Filed: 03/24/24 07:07> Past Medical History Past Medical History: Hypertension Additional Past Medical History / Comment(s): anemia, HTN during History of Any Multi-Drug Resistant Organisms: None Reported Past Surgical History: Section Additional Past Surgical History / Comment(s): hemmeroidectomy. colonoscopy Past Anesthesia/Blood Transfusion Reactions: No Reported Reaction Past Psychological History: PTSD Smoking Status: Current every day smoker Past Alcohol Use History: Occasional Past Drug Use History: Marijuana - Past Family History Mother Additional Family Medical History / Comment(s): Anemic Father Family Medical History: Diabetes Mellitus, Myocardial Infarction ([place]) <Katia Hopkins - Last Filed: 03/23/24 16:40> General Exam Limitations: no limitations <PastorKatia almodovar - Last Filed: 03/23/24 16:40> General appearance: alert, in no apparent distress Head exam: Present: atraumatic, normocephalic Eye exam: Present: normal appearance. Absent: scleral icterus, conjunctival injection ENT exam: Present: normal oropharynx Neck exam: Present: normal inspection, full ROM Respiratory exam: Present: normal lung sounds bilaterally. Absent: respiratory distress, wheezes, rales, rhonchi, stridor, accessory muscle use Cardiovascular Exam: Present: regular rate, normal rhythm, normal heart sounds. Absent: systolic murmur, diastolic murmur, rubs, gallop GI/Abdominal exam: Present: soft. Absent: distended, tenderness, guarding, rebound, rigid, mass Extremities exam: Present: normal inspection, normal capillary refill. Absent: pedal edema, calf tenderness Back exam: Present: normal inspection. Absent: CVA tenderness (R), CVA tenderness (L) Neurological exam: Present: alert Skin exam: Present: warm, dry, intact, normal color. Absent: rash <ChazKevin - Last Filed: 03/24/24 07:07> - General Exam Comments Initial Comments: Visual Physical Exam Vital signs reviewed General: Well-appearing, nontoxic, no acute distress. Head: Normocephalic, atraumatic Eyes: PERRLA, EOMI ENT: Airway patent Chest: Nonlabored breathing Skin: No visual rash, normal skin tone Neuro: Alert and oriented 3 Musculoskeletal: No gross abnormalities (Katia Hopkins) Course Vital Signs 03/23/24 03/23/24 03/23/24 16:38 18:16 18:17 Temperature 98.7 F Pulse Rate 96 89 Pulse Rate [ Cupola Patcher Helper ] Respiratory 16 20 20 Rate Blood Pressure 199/92 181/103 O2 Sat by Pulse 100 100 Oximetry 03/23/24 03/23/24 03/23/24 18:20 19:33 20:02 Temperature Pulse Rate 89 82 Pulse Rate [ 68 Cupola Patcher Helper ] Respiratory 18 19 Rate Blood Pressure 163/93 153/86 O2 Sat by Pulse 100 Oximetry Chest Pain MDM <Katia Hopkins - Last Filed: 03/23/24 16:40> <Kevin Ware - Last Filed: 03/24/24 07:07> - MDM I performed the quick note portion of this chart. Electronically signed by Katia Hopkins PA-C (Katia Hopkins) Was pt. sent in by a medical professional or institution ([facility], [facility] TENDER, urgent care, hospital, or fci...) When possible be specific @ -[No] Did you speak to anyone other than the patient for history (EMS, parent, family, police, friend...)? What history was obtained from this source @ -[No] Did you review nursing and triage notes (agree or disagree)? Why? @ -[I reviewed and agree with nursing and triage notes] Were old charts reviewed (outside hosp., previous admission, EMS record, old EKG, old radiological studies, urgent care reports/EKG's, fci records)? Report findings @ -[No old charts were reviewed] Differential Diagnosis (chest pain, altered mental status, abdominal pain women, abdominal pain men, vaginal bleeding, weakness, fever, dyspnea, syncope, headache, dizziness, GI bleed, back pain, seizure, CVA, palpatations, mental health, musculoskeletal)? @ -[Differential Chest Pain: Stable Angina, Unstable Angina, STEMI, NSTEMI Aortic Dissection, Pneumothorax, Musculoskeletal, Esophageal Spasm GERD, Cholecystitis, Pancreatitis, Zoster, this is not meant to be an all-inclusive list. EKG interpreted by me (3pts min.). @ -[I interpreted as above] X-rays interpreted by me (1pt min.). @ -[I interpreted as above CT interpreted by me (1pt min.). @ -[None done] U/S interpreted by me (1pt. min.). @ -[None done] What testing was considered but not performed or refused? (CT, X-rays, U/S, labs)? Why? @ -[None] What meds were considered but not given or refused? Why? @ -[None] Did you discuss the management of the patient with other professionals (professionals i.e. , PA, LATHE TENDER, lab, RT, psych nurse, director social welfare, teletypesetter monitor, teacher, flight deck officer, special education case manager)? Give summary @ -[No] Was smoking cessation discussed for >3mins.? @ -[No] Was critical care preformed (if so, how long)? @ -[No] Were there social determinants of health that impacted care today? How? (Homelessness, low income, unemployed, alcoholism, drug addiction, transportation, low edu. Level, literacy, decrease access to med. care, group home, rehab)? @ -[No] Was there de-escalation of care discussed even if they declined (Discuss DNR or withdrawal of care, Hospice)? DNR status @ -[No] What co-morbidities impacted this encounter? (DM, HTN, Smoking, COPD, CAD, Cancer, CVA, ARF, Chemo, Hep., AIDS, mental health diagnosis, sleep apnea, morbid obesity)? @ -[Gestational hypertension Was patient admitted / discharged? Hospital course, mention meds given and route, prescriptions, significant lab abnormalities, going to OR and other pertinent info. @ -[Discussed findings with patient, the anemia does appear to be due to heavy menses. Discussed follow-up options. Discussed iron supplement for the anemia but the patient states that she had been on this and stopped due to side effects. Discussed having blood pressure rechecked and necessity of starting treatment should it be remaining high. Return parameters discussed Undiagnosed new problem with uncertain prognosis? @ -[No] Drug Therapy requiring intensive monitoring for toxicity (Heparin, Nitro, Insulin, Cardizem)? @ -[No] Were any procedures done? @ -[No] Diagnosis/symptom? @ -[Acute chest pain Acute hypertension Anemia, chronic Acute, or Chronic, or Acute on Chronic? @ -[ Uncomplicated (without systemic symptoms) or Complicated (systemic symptoms)? @ -[Uncomplicated Side effects of treatment? @ -[No] Exacerbation, Progression, or Severe Exacerbation? @ -[No] Poses a threat to life or bodily function? How? (Chest pain, [place], [place], pneumonia, PE, COPD, DKA, ARF, appy, cholecystitis, CVA, Diverticulitis, Homicidal, Suicidal, threat to staff... and all critical care pts) @ -[Yes over the long-term, patient to have appropriate follow-up (Kevin Ware) Disposition <Katia Hopkins - Last Filed: 03/23/24 16:40> Is patient prescribed a controlled substance at d/c from ED?: No <Kevin Ware - Last Filed: 03/24/24 07:07> Clinical Impression: Anemia, Hypertension, Hypokalemia Disposition: HOME SELF-CARE Condition: Good Instructions (If sedation given, give patient instructions): Hypokalemia (ED), Hypertension (ED), Anemia (ED) Prescriptions: Potassium Chloride ER [K-Dur 20] 20 meq PO BID #10 tab Referrals: Mode Davila MD [Primary Care Provider] - 1-2 days Shantel Arroyo DO [Doctor of Osteopathic Medicine] - 1-2 days
[2024-03-23 18:15] LABS: Anisocytosis Slight; Basophils % (A) 0 %; Eosinophils # (A) 0.1 k/uL (0-0.7); Eosinophils % (A) 1 %; HCT 27.7 % (34.0-46.0); HGB 7.8 gm/dL (11.4-16.0); Hypochromasia Marked; Lymphocytes # (A) 3.1 k/uL (1.0-4.8); Lymphocytes % (A) 27 %; MCHC 28.3 g/dL (31.0-37.0); MCV 67.3 fL (80.0-100.0); Mean Platelet Volume 7.6; Microcytosis Marked; Monocytes # (A) 0.5 k/uL (0-1.0); Monocytes % (A) 4 %; Neutrophils # (A) 7.5 k/uL (1.3-7.7); Neutrophils % (A) 66 %; Platelet Count 228 k/uL (150-450); RBC 4.12 m/uL (3.80-5.40); RDW 16.6 % (11.5-15.5); WBC 11.3 k/uL (3.8-10.6)
[2024-03-23 18:23] LABS: ALT 16 U/L (4-34); AST 25 U/L (14-36); African American GFR (CKD) >90 (>60 ml/min/1.73 sqM); Albumin 4.5 g/dL (3.5-5.0); Alkaline Phosphatase 79 U/L (38-126); Anion Gap 11 mmol/L; Blood Urea Nitrogen 8 mg/dL (7-17); Calcium 9.3 mg/dL (8.4-10.2); Carbon Dioxide 26 mmol/L (22-30); Chloride 103 mmol/L (98-107); Glucose 111 mg/dL (74-99); Magnesium 1.8 mg/dL (1.6-2.3); Non-African American GFR(CKD) >90 (>60 ml/min/1.73 sqM); Potassium 2.9 mmol/L (3.5-5.1); Sodium 140 mmol/L (137-145); Total Bilirubin 0.7 mg/dL (0.2-1.3); Total Protein 7.5 g/dL (6.3-8.2)
[2024-03-23 18:29] LABS: Appearance,Urine Clear (Clear); Bilirubin,Urine Negative (Negative); Blood,Urine Negative (Negative); Color,Urine Yellow; Glucose,Urine (UA) Negative (Negative); Ketones,Urine Trace (Negative); Leukocyte Esterase,Urine Negative (Negative); Mucus,Urine Many /hpf; Nitrite,Urine Negative (Negative); Protein,Urine 1+ (Negative); Specific Gravity,Urine 1.031 (1.001-1.035); Squamous Epithelial Cell,Urine 4 /hpf (0-4); WBC,Urine 1 /hpf (0-5)
[2024-03-23 18:32] LABS: Partial Thromboplastin Time 26.7 sec (22.0-30.0); Prothrombin Time 10.9 sec (10.0-12.5)
--- NOTE | 2024-03-23 18:34 | XR ---
EXAMINATION TYPE: XR chest 2V DATE OF EXAM: 03/23/2024 6:25 PM CLINICAL INDICATION: Female, 33 years old with history of Chest Pain; [facility] COMPARISON: Chest radiographs from 03/16/2017 TECHNIQUE: XR chest 2V Frontal view of the chest. FINDINGS: Lungs/Pleura: There is no evidence of pleural effusion, focal consolidation, or pneumothorax. Pulmonary vascularity: Unremarkable. Heart/mediastinum: Cardiomediastinal silhouette is unremarkable. Musculoskeletal: No acute osseous pathology. Other findings: Non IMPRESSION: No acute cardiopulmonary disease/process. [facility] David Adames, , 03/23/2024 6:32 PM
[2024-03-23] MEDS: hydrALAZINE HCL 50 MG TAB PO STA (19:32)
[2024-03-23] MEDS: POTASSIUM CHLORIDE ER 20 MEQ TAB.ER PO STA (19:32)
[2024-03-23 20:03] VITALS: BP 153/86; PULSE 82; RESP 19
== END 2024-03-23 20:20 | disposition home or self-care (01) ==
LOC: EC 16:33
DX: I10 Essential (primary) hypertension (principal); D64.9 Anemia, unspecified; E87.6 Hypokalemia; F17.200 Nicotine dependence, unspecified, uncomplicated
CPT/HCPCS: 36415; 71046; 80053; 81001; 81025; 83735; 84484; 85025; 85379; 85610; 85730; 93005; 99285